=== PATIENT | male | born 1980 | race Two or more races ===

== ENCOUNTER 2018-05-22 03:16 | Emergency (ER) | payer OTHER ==
[~2018-05-22] VITALS: Wt 74.8 kg
[2018-05-22] MEDS ORDERED: NITROGLYCERIN 2% 1 GM OINT PKT TD STA (03:32)
[2018-05-22 06:44] VITALS: BP 184/141; PULSE 118; RESP 22
[2018-05-24] MEDS ORDERED: CARV6.2579 PO (06:59)
[2018-05-24] MEDS ORDERED: SEVE0.8P PO (06:59)
[2018-05-24] MEDS ORDERED: LOSA25TA12 PO (06:59)
[2018-05-24] MEDS ORDERED: AMLO5TAB4 PO (07:00)
--- NOTE | 2018-06-17 23:17 | ERD ---
ER Documentation Chief Complaint Chief Complaint SOB, DIALYSIS PT; DUE FOR TREATMENT TODAY HPI This is a 38-year-old male with end-stage renal disease on dialysis comes in with sudden onset shortness of breath. He is due for dialysis today. No fevers no chills. No other current complaints. No chest pain. Shortness breath is obviously worse when he lays down and tries to exert himself. ROS All systems reviewed and are negative except as per history of present illness. Medications Home Meds Reported Medications Amlodipine Besylate* (Norvasc*) 5 Mg Tablet, 5 MG PO DAILY, TAB 05/24/18 Losartan Potassium* (Losartan Potassium*) 25 Mg Tablet, 75 MG PO DAILY, TAB 05/24/18 Carvedilol* (Carvedilol*) 6.25 Mg Tablet, 6.25 MG PO BID, #60 TAB 05/24/18 Sevelamer Carbonate* (Renvela*) 0.8 Gm Powd.pack, 1.6 GM PO WITH MEALS, PACKET 05/24/18 Allergies Allergies: Coded Allergies: No Known Allergy (Unverified , 05/24/18) PMhx/Soc History of Surgery: No Anesthesia Reaction: No Hx Neurological Disorder: No Hx Respiratory Disorders: No Hx Cardiac Disorders: Yes (HTN) Hx Psychiatric Problems: No Hx Miscellaneous Medical Probl: Yes (HD TThSa,Left chest [place] cath) Hx Alcohol Use: No Hx Substance Use: No Hx Tobacco Use: Yes (daily) Smoking Status: Current every day smoker Physical Exam Physical Exam Const: No acute distress Head: Atraumatic Eyes: Normal Conjunctiva ENT: Normal External Ears, Nose and Mouth. Neck: Full range of motion. No meningismus. Resp: Clear to auscultation bilaterally Cardio: Regular rate and rhythm, no murmurs Abd: Soft, non tender, non distended. Normal bowel sounds Skin: No petechiae or rashes Back: No midline or flank tenderness Ext: No cyanosis, or edema Neur: Awake and alert Psych: Normal Mood and Affect Results 24 hrs Laboratory Tests Test 05/22/18 03:32 05/22/18 03:39 05/22/18 03:53 Blood Gas Specimen Source Blood arterial Arterial Blood Date 05/22/2018 4:38:44 AM Drawn Arterial Blood pH 7.398 (Temp corrected) Arterial Blood pCO2 35.0 mmhg (Temp correct) Arterial Blood pO2 105.3 mmHG (Temp corrected) Arterial Blood HCO3 21.1 mmol/L Arterial Blood Base -3.2 mmol/L Excess Arterial Blood 97.2 mmHG Oxygen Saturation Richard Test N/A Arterial Blood Gas LB Puncture Site Arterial 1.6 % Blood Carboxyhemoglobin Arterial Blood 0 % Methemoglobin Blood Gas A-a O2 211.8 mmHg Differential Oxyhemoglobin Percent 95.6 % Blood Gas Temperature 37.0 C Blood Gas Respiration 16.0 Rate Blood Gas Actual 29 Respiration Rate Blood Gas Modality MASK - BIPAP FiO2 50.0 % Blood Gas Pressure 10 Support Blood Gas IPAP/EPAP Ratio 15/5 Blood Gas Notified Whom KM Blood Gas Notified Time 05/22/2018 4:48:42 AM White Blood Count 6.3 10^3/ul Red Blood Count 3.45 10^6/ul Hemoglobin 10.5 g/dl Hematocrit 31.3 % Mean Corpuscular Volume 90.7 fl Mean Corpuscular 30.4 pg Hemoglobin Mean Corpuscular 33.5 g/dl Hemoglobin Concent Red Cell Distribution 17.1 % Width Platelet Count 145 10^3/UL Mean Platelet Volume 9.6 fl Immature Granulocytes % 0.200 % Neutrophils % 63.1 % Lymphocytes % 26.4 % Monocytes % 6.0 % Eosinophils % 3.8 % Basophils % 0.5 % Nucleated Red Blood Cells 0.0 /100WBC % Immature Granulocytes # 0.010 10^3/ul Neutrophils # 4.0 10^3/ul Lymphocytes # 1.7 10^3/ul Monocytes # 0.4 10^3/ul Eosinophils # 0.2 10^3/ul Basophils # 0.0 10^3/ul Nucleated Red Blood Cells 0.0 10^3/ul # Prothrombin Time 12.5 Sec Prothrombin Time Ratio 1.0 INR International 0.93 Normalized Ratio Activated 28.6 Sec Partial Thromboplast Time Sodium Level 139 mmol/L Potassium Level 4.2 mmol/L Chloride Level 100 mmol/L Carbon Dioxide Level 23 mmol/L Anion Gap 16 Blood Urea Nitrogen 50 mg/dl Creatinine 11.42 mg/dl Est Glomerular Filtrat 5 mL/min Rate mL/min Glucose Level 101 mg/dl Calcium Level 9.3 mg/dl Total Bilirubin 0.4 mg/dl Direct Bilirubin 0.00 mg/dl Indirect Bilirubin 0.4 mg/dl Aspartate Amino 29 IU/L Transf (AST/SGOT) Alanine 31 IU/L Aminotransferase (ALT/SGP T) Alkaline Phosphatase 100 IU/L Troponin I 0.091 ng/ml B-Type Natriuretic 099828 PG/ML Peptide Total Protein 6.9 g/dl Albumin 4.2 g/dl Globulin 2.70 g/dl Albumin/Globulin Ratio 1.55 POC Venous Lactate 1.2 mmol/L Current Medications Medications Dose Sig/Anirudh Start Time Status Last (Trade) Ordered Route PRN Stop Time Admin Dose Reason Admin 1 inch ONCE STAT 05/22/18 DC 05/22/18 Nitroglycerin TD 03:32 04:22 05/22/18 (Nitroglyceri 03:35 n 2% Oint) Procedures/MDM EKG: Rate/Rhythm: [Normal Sinus Rhythm] QRS, ST, T-waves: [No changes consistent w/ acute ischemia] Impression: [No evidence of ischemia or arrhythmia] Chest X-ray 1V Interpreted by me: Soft Tissue: No acute abnormalities Bones: No acute abnormalities Mediastinum/Cardiac Silhouette/Lungs: Increased interstitial fluid markings. Impression: Pulmonary edema Patient's heart failure symptoms is concerning for acute decompensation and will require inpatient workup and monitoring. Further w/u for ischemia, arrhythmia, PE or dissection will be deferred to the inpatient team. Accepting Care Team: Current data and ongoing care discussed. Primary Provider: Hospitalist Consulting: Deferred to inpatient team Outstanding Data: none Departure Diagnosis: Primary Impression: Shortness of breath Condition: Serious DENVER BARRIGA TylerGlenn Jun 17, 2018 23:17
[2018-07-14] MEDS ORDERED: SEVE0.8P2 PO (07:40)
[2018-07-14] MEDS ORDERED: CARV12.579 PO (07:40)
[2018-07-14] MEDS ORDERED: LOSA25TA2 PO (07:40)
== END 2018-05-22 10:39 | disposition left against medical advice (07) ==
LOC: E/R 03:16 → EDBEDREQ 06:28 → E/R 10:39
DX: R06.02 Shortness of breath (principal); I10 Essential (primary) hypertension; F17.210 Nicotine dependence, cigarettes, uncomplicated
CPT/HCPCS: 36600; 71045; 80053; 82803; 83605; 83880; 84484; 85025; 85610; 85730; 93005; 94660; Z7610; 36415

== ENCOUNTER 2018-05-24 04:32 | Emergency (ER) | END 2018-05-24 07:46 | disposition left against medical advice (07) ==

== ENCOUNTER 2018-07-23 17:58 | Inpatient (IN) | payer OTHER ==
[~2018-07-23] VITALS: Ht 170.2 cm; Wt 75.3 kg
[~2018-07-23 17:58] MED LIST: CARV12.579 PO; LOSA25TA2 PO; SEVE0.8P2 PO
--- NOTE | 2018-07-23 19:49 | ERD ---
ER Documentation Chief Complaint Chief Complaint Complains of shortness of breath x 3 month HPI 38-year-old gentleman history of dialysis on Monday and Monday with last dialysis on Monday. The patient presents with shortness of breath. Progressive for 3 months timeframe. Last hospitalization was the beginning of this month approximately 9 days ago discharge. He states persistence of pain. He still has the shortness of breath despite dialysis. He denies any chest pain, chest pressure, pleuritic pain, fevers chills or cough. ROS All systems reviewed and are negative except as per history of present illness. Medications Home Meds Active Scripts Sevelamer Carbonate (Sevelamer Carbonate) 0.8 Gm Powd.pack, 0.8 GM PO WITH MEALS for 90 Days Prov:REASASKIA FRENCH DO 07/14/18 Losartan Potassium* (Cozaar*) 25 Mg Tablet, 100 MG PO BID for 30 Days, TAB Prov:REASASKIA DO 07/14/18 Carvedilol* (Carvedilol*) 12.5 Mg Tablet, 12.5 MG PO BID for 30 Days, TAB Prov:REA,SASKIA DO 07/14/18 Allergies Allergies: Coded Allergies: No Known Allergy (Unverified , 05/24/18) PMhx/Soc History of Surgery: Yes (RIGHT CHEST PERMACATH) Anesthesia Reaction: No Hx Neurological Disorder: No Hx Respiratory Disorders: No Hx Cardiac Disorders: No (HTN) Hx Psychiatric Problems: No Hx Miscellaneous Medical Probl: No Hx Alcohol Use: No Hx Substance Use: No Hx Tobacco Use: No FmHx Family History: No diabetes Physical Exam Vitals Vital Signs Date Temp Pulse Resp B/P (MAP) Pulse Ox O2 O2 Flow FiO2 Time Delivery Rate 07/23/18 97.2 108 20 166/120 100 Nasal 2.0 19:45 (135) Cannula 07/23/18 Nasal 2.0 19:45 Cannula 07/23/18 2 19:45 07/23/18 96.5 114 20 183/112 98 18:02 (135) Physical Exam General: Well developed, well nourished, no acute distress Head: Normocephalic, atraumatic. Eyes: Pupils equally reactive, EOM intact ENT: Moist mucous membranes Neck: Supple, no lymphadenopathy Respiratory: Rales at the bases bilaterally Cardiovascular: RRR, no murmurs, rubs, or gallops Abdominal: Soft, non-tender, non-distended, no peritoneal signs : Deferred MSK: No edema, no unilateral swelling, 5/5 strength Neurologic: Alert and oriented, moving all extremities, normal speech, no focal weakness, no cerebellar signs Skin: No rash Psych: Normal mood Result Diagram: 07/23/18195207/23/181952 Results 24 hrs Laboratory Tests Test 07/23/18 19:53 White Blood Count 5.9 10^3/ul Red Blood Count 2.86 10^6/ul Hemoglobin 8.9 g/dl Hematocrit 27.8 % Mean Corpuscular Volume 97.2 fl Mean Corpuscular Hemoglobin 31.1 pg Mean Corpuscular Hemoglobin Concent 32.0 g/dl Red Cell Distribution Width 14.3 % Platelet Count 179 10^3/UL Mean Platelet Volume 10.4 fl Immature Granulocytes % 0.500 % Neutrophils % 72.9 % Lymphocytes % 20.7 % Monocytes % 3.6 % Eosinophils % 2.0 % Basophils % 0.3 % Nucleated Red Blood Cells % 0.0 /100WBC Immature Granulocytes # 0.030 10^3/ul Neutrophils # 4.3 10^3/ul Lymphocytes # 1.2 10^3/ul Monocytes # 0.2 10^3/ul Eosinophils # 0.1 10^3/ul Basophils # 0.0 10^3/ul Nucleated Red Blood Cells # 0.0 10^3/ul Prothrombin Time 13.4 Sec Prothrombin Time Ratio 1.0 INR International Normalized Ratio 1.01 Activated Partial Thromboplast Time 28.6 Sec Sodium Level 139 mmol/L Potassium Level 4.1 mmol/L Chloride Level 95 mmol/L Carbon Dioxide Level 25 mmol/L Anion Gap 19 Blood Urea Nitrogen 68 mg/dl Creatinine 10.81 mg/dl Est Glomerular Filtrat Rate mL/min 5 mL/min Glucose Level 99 mg/dl Calcium Level 9.4 mg/dl Troponin I 0.127 ng/ml Current Medications Medications Dose Sig/Anirudh Start Time Status Last (Trade) Ordered Route PRN Stop Time Admin Dose Reason Admin 1 tab ONCE ONCE 07/23/18 DC 07/23/18 Nitroglycerin SL 20:30 20:25 07/23/18 20:31 (Nitroglyceri n (Sl Tab) 0.4 Mg) Ondansetron 4 mg BRIDGE ORDER 07/23/18 HCl (Zofran PRN IV 21:00 Inj) NAUSEA/VOMITI 07/24/18 20:59 NG 650 mg ER BRIDGE 07/23/18 Acetaminophen PRN PO 21:00 (Tylenol .MILD PAIN 07/24/18 20:59 Tab) 1-3 OR TEMP Aspirin 324 mg ONCE ONCE 07/23/18 DC 07/23/18 (Aspirin) PO 21:00 20:50 07/23/18 21:01 Procedures/MDM EKG, MONITORS, & DIAGNOSTIC IMAGING: EKG: I reviewed and interpreted a 12-lead EKG. Rhythm: Normal sinus rhythm ST Changes: No contiguous ST segment elevations T waves: No contiguous T wave inversions Impression: [No evidence of acute cardiac ischemia] Chest x-ray: I reviewed and interpreted a 1 view of the chest Mediastinum: No enlargement Cardiac silhouette cardiomegaly Airspace: Interstitial process bilaterally consistent with pulmonary edema Bones: No evidence of fracture LAB INTERPRETATION: I reviewed the laboratory testing and it shows mild troponin elevation likely secondary to poor renal clearance MEDICAL DECISION MAKING: Patient shortness of breath is likely consistent with volume overload given history and prior hospitalization for similar. No signs or symptoms concerning for ACS or pulmonary embolism. No evidence of pneumonia currently. Currently the patient is breathing without difficulty and does not require positive pressure ventilation. Continue to monitor. Patient may benefit from blood pressure control. Dr. Hunter, patient's photo booth operator will be paged. ER COURSE: * Aspirin provided. * Blood pressure improved with nitroglycerin. * However just prior to admission the patient's blood pressure increased slightly. Hydralazine provided. No chest pain currently. * Low concern for pulmonary embolism. CONSULTATION: [None] DISPOSITION PLAN: Accepting care team and consultations: I discussed the current laboratory data, diagnostic imaging and emergency care provided. Admitting team: Dr. Mayfield Admitting team indication: Insurance directed Departure Diagnosis: Primary Impression: Shortness of breath Additional Impressions: Non-ST elevation myocardial infarction (NSTEMI) End stage renal disease on dialysis Hypertensive emergency Condition: Stable DON RIVERA MD Jul 23, 2018 19:49
[2018-07-23] MEDS ORDERED: NITROGLYCERIN (SL) 0.4 MG TAB SL ONE (20:30)
[2018-07-23] MEDS ORDERED: ACETAMINOPHEN 325 MG TAB PO PRN ×2 (21:00→22:00)
[2018-07-23] MEDS ORDERED: ONDANSETRON 4 MG INJ IV PRN ×2 (21:00→22:00)
[2018-07-23] MEDS ORDERED: ASPIRIN 81 MG TAB PO ONE (21:00)
[2018-07-23] MEDS ORDERED: hydrALAzine 20 MG INJ ONE (21:37)
[2018-07-23] MEDS ORDERED: ZOLPIDEM 5 MG TAB PO PRN (22:00)
[2018-07-23] MEDS ORDERED: NACL 0.9% 3 ML SYG IV SCH (22:00)
[2018-07-23] MEDS ORDERED: hydrALAzine 20 MG INJ IV ONE (22:00)
[2018-07-23 22:14] VITALS: Ht 170.2 cm; Wt 75.3 kg
[2018-07-23 22:27] VITALS: PULSE 104
[2018-07-23 22:30] VITALS: BP 174/92; PULSE 107; RESP 20
[2018-07-23] MEDS ORDERED: GUAIFENESIN/DM 5ML CUP PO PRN (23:00)
[2018-07-23] MEDS: HEPARIN 5,000 UNIT/1 ML VIAL SC SCH (23:03)
[2018-07-23] MEDS: NITROGLYCERIN 2% 1 GM OINT PKT TD SCH (23:15)
[2018-07-24] VITALS (24 sets, daily range): BP systolic 131–164; BP diastolic 11–121; PULSE 81–112; RESP 18–24
[2018-07-24] MEDS: NITROGLYCERIN 2% 1 GM OINT PKT TD SCH ×4 (05:32→23:13)
[2018-07-24] MEDS: HEPARIN 5,000 UNIT/1 ML VIAL SC SCH ×3 (05:39→21:52)
[2018-07-24] MEDS: SEVELAMER CARBONATE 0.8 GM PKT PO SCH ×3 (08:18→17:55)
--- NOTE | 2018-07-24 08:21 | HP ---
DATE OF ADMISSION: 07/23/2018 HOSPITAL COURSE: This is a 38-year-old male with a past medical history of end-stage renal disease o n dialysis Monday, , Monday, access Perm-A-Cath. The patient's primary automobile rental agent is Dr Glenn Hunter. The patient also has history of hypertension, mineral bone disorder, anemia, who w as previously admitted to [facility] 2 weeks ago. The patient during that hospital course was seen by porcelain buildup assistant, Dr. Taylor, was determined to have heart failure with ejection frac tion of 25%. The patient at that point refused cardiac catheterization. The patient was subsequentl y discharged. He now presents back to the [facility] with shortness of breath. patient states he has also had progressive shortness of breath for the last 3 months despite hemodi alysis. Upon arrival to the emergency room, the patient had a chest x-ray, which showed findings of cardiomegaly with central venous congestion. The patient was noted to be hypertensive in the emergen cy room and was admitted to telemetry, given nitroglycerin paste for blood pressure control. Upon my evaluation of the patient at this time, he is currently tachypneic. He denies any hemoptysis , hematemesis, or hematochezia. PAST MEDICAL HISTORY: As stated above, history of hypertension, history of end-stage renal disease, history of mineral bone disorder, history of heart failure. PAST SURGICAL HISTORY: Status post Perm-A-Cath placement, status post renal biopsy per patient in [facility]. FAMILY HISTORY: Noncontributory. SOCIAL HISTORY: He does not drink, smoke, or do drugs. MEDICATIONS: The patient's medications have been reviewed. REVIEW OF SYSTEMS: A 14-point review of systems was conducted. Pertinent positives stated in HPI, o therwise negative. PHYSICAL EXAMINATION: VITAL SIGNS: Blood pressure is 159/108, pulse 109, temperature 97.6. HEENT: Head is normocephalic. NECK: Supple. HEART: Regular rate. LUNGS: Show diminished breath sounds at the base. ABDOMEN: Soft, nontender to palpation without rebound or guarding. EXTREMITIES: Negative for clubbing, cyanosis, no edema. DERMATOLOGIC: No rashes. MUSCULOSKELETAL: No joint effusion. NEUROLOGIC: No change in exam. LABORATORY DATA: Shows white count 5.1, hemoglobin 8.3, platelets count 162. Sodium 139, BUN 72, cr eatinine 1.18. Troponin 0.127. ASSESSMENT AND PLAN: 1. End-stage renal disease. Plan is for dialysis today. We will dialyze for 3 hours on 3K bath, ca lcium 2.5, ultrafiltrate approximately 2 to 3 liters. 2. Acute hypoxemic respiratory failure. Etiology is felt to be secondary to volume overload. Possi ble cardiomyopathy may be a contributing factor. The patient's previous 2D echo showed ejection frac tion of 25%. Plan is to ultrafiltrate with hemodialysis to obtain euvolemia. We will follow up with cardiology for further evaluation and possible cardiac catheterization to rule out ischemic disease. We will monitor closely. 3. Heart failure. The patient has ejection fraction of 25%. Workup is ongoing. We will place a ca rdiology consult for evaluation. 4. Anemia. Continue to monitor hemoglobin and hematocrit levels. Continue Epogen. 5. Mineral bone disorder, monitor calcium and phosphorus levels. 6. Hypertension. Continue current blood pressure regimen. Continue ultrafiltration dialysis. 7. Elevated troponin. Etiology may be due to demand ischemia versus ischemic cardiomyopathy. We wi ll continue to monitor serial troponins. Follow up with cardiology. 8. Gastrointestinal and deep vein thrombosis prophylaxis. I spent additional 30 minutes in [id number] time with the patient, discussing advance directives, c ode status. The patient is FULL CODE. Dictated By: DMITRY KELLER DO NR/NTS Conf#: [id number] DID#: [id number] CC: DAVE MEDRANO MD;*EndCC*
[2018-07-24] MEDS ORDERED: EPOETIN 10000 UNITS/1 ML INJ (ESRD) SC ONE (09:00)
--- NOTE | 2018-07-24 10:23 | CONS ---
Assessment/Plan Assessment/Plan Hospital Course (Demo Recall) Congestive heart failure: Acute on chronic secondary systolic heart failure and also noncompliant with the diet and medication Renal failure on dialysis Severe cardiomyopathy Abnormal troponin with no chest pain History of poor compliance with medications Recommendations Importance of compliant with medication diet and hemodialysis explained to the patient. However he does not appear to be agreeing to it Different options discussed with the patient. It was decided to perform a Lexiscan stress test tomorrow. Patient with significant ischemia were discussed with the patient for coronary angiography as long as he remains compliant with her medications Coreg has been added to his regimen I would also add VIVIANA inhibitor as well. Thank you for his referral will continue to follow along with you DENILSON SCOTT MD [facility] Consultation Date/Type/Reason Admit Date/Time Jul 23, 2018 at 20:32 Date of Consultation: Jul 24, 2018 Type of Consult Cardiology Reason for Consultation chf/ Requesting Provider: DMITRY KELLER DO Date/Time of Note DATE: 07/24/18 TIME: 10:18 Hx of Present Illness Interventional cardiology consultation note Chief complaint: sob Reason for consult: + trop, CHF History of present illness: Thank you for this referral. History was obtained from the patient who is a poor historian discussion with the staff and physicians. Old chart was reviewed This is a 38-year-old Malay gentleman with history of renal failure on dialysis over the past few months, hypertension who came to emergency room above complaint. Patient stated that he had hemodialysis on Monday. After that he has been having increasing shortness of breath again and finally came to emerg ency room last night. Patient reports to me that he "eats whatever he wants to"and he does not take his medication regularly because " they do not work" . Patient on record was reviewed he was admitted recently to the hospital. He came in and was noted to be fluid overloaded and a chest x-ray. After he had missed his hemodialysis and came in with fluid overload Patient is unaware of any cardiac disorder onset in February he had an echocardiogram all review and he reports that he was told it was okay. However echocardiogram done last admission and personally reviewed which shows severe LV dysfunction and dilated left ventricle. His troponin was also mildly elevated Patient refused coronary angiography at that time Allergies: No known drug allergies Medications were reviewed as per medical reconciliation sheet Family history: Denies any history of early coronary artery disease Social history: Actively smokes but denies any drug abuse to me. Apparently has been a heavy drinker but he said that he has quit in January 2018 Past medical history: Hypertension, renal failure on dialysis cardiomyopathy congestive heart failure Review of system: Patient denies all others except for above-mentioned Past Medical History Home Meds Active Scripts Sevelamer Carbonate (Sevelamer Carbonate) 0.8 Gm Powd.pack, 0.8 GM PO WITH MEALS for 90 Days Prov:SASKIA LUCIA DO 07/14/18 Carvedilol* (Carvedilol*) 12.5 Mg Tablet, 12.5 MG PO BID for 30 Days, TAB Prov:SASKIA LUCIA DO 07/14/18 Discontinued Scripts Losartan Potassium* (Cozaar*) 25 Mg Tablet, 100 MG PO BID for 30 Days, TAB Prov:SASKIA LUCIA DO 07/14/18 Medications Current Medications IV Flush (NS 3 ml) 3 ml PER PROTOCOL IV ; Start 07/23/18 at 22:00 Ondansetron HCl (Zofran Inj) 4 mg Q6H PRN IV NAUSEA/VOMITING; Start 07/23/18 at 22:00 Acetaminophen (Tylenol Tab) 650 mg Q6H PRN PO .PAIN 1-3 OR TEMP; Start 07/23/18 at 22:00 Zolpidem Tartrate (Ambien) 5 mg QHS PRN PO .INSOMNIA; Start 07/23/18 at 22:00 Heparin Sodium (Porcine) (Heparin (5000 Units/1ml)) 5,000 unit Q8 SC Last administered on 07/24/18at 05:39; Admin Dose 5,000 UNIT; Start 07/23/18 at 22:00 Nitroglycerin (Nitroglycerin 2% Oint) 2 inch Q6 TD Last administered on 07/24/18at 05:32; Admin Dose 2 INCH; Start 07/24/18 at 00:00 Guaifenesin/ Dextromethorphan (Robitussin Dm Liquid Cup) 10 ml Q4H PRN PO COUGH; Start 07/23/18 at 23:00 Carvedilol (Coreg) 12.5 mg BID PO Last administered on 07/24/18at 08:18; Admin Dose 12.5 MG; Start 07/24/18 at 09:00 Sevelamer Carbonate (Renvela) 0.8 gm WITH MEALS PO Last administered on 07/24/18at 08:18; Admin Dose 0.8 GM; Start 07/24/18 at 07:55 Allergies: Coded Allergies: No Known Allergy (Unverified , 05/24/18) Social History Smoking Status: Former smoker Exam/Review of Systems Vital Signs Vitals Vital Signs Date Temp Pulse Resp B/P (MAP) Pulse Ox O2 O2 Flow FiO2 Time Delivery Rate 07/24/18 105 09:00 07/24/18 Nasal 2.0 07:55 Cannula 07/24/18 97.7 18 163/104 98 07:39 (123) Intake and Output 07/23/18 07/23/18 07/24/18 1515:00 23:00 07:00 IntakeIntake Total 300 ml BalanceBalance 300 ml Exam Exam General: no acute distress HEENT: NC/AT. pupils are equal. round. NECK: + JVD. no stridor. CV: RRR. systolic murmur; no gallop or rubs. PULM: no wheezing or rhonchi. GI: SOFT, NT, ND, no rebound or guarding Extremity: trace B/L LE edema. no clubbing. neuro: awake and alert, OX3. Psych: calm and pleasant rectal: deferred : normal Labs Result Diagram: 07/24/18 0242 07/24/18 0242 Results 24hrs Laboratory Tests Test 07/23/18 19:53 07/24/18 02:42 07/24/18 06:25 07/24/18 07:51 White Blood Count 5.9 # 5.1 Red Blood Count 2.86 L 2.68 L Hemoglobin 8.9 L 8.3 L Hematocrit 27.8 L 25.6 L Mean Corpuscular 97.2 95.5 Volume Mean Corpuscular 31.1 31.0 Hemoglobin Mean Corpuscular 32.0 32.4 Hemoglobin Concent Red Cell 14.3 14.6 H Distribution Width Platelet Count 179 # 162 Mean Platelet Volume 10.4 10.5 H Immature 0.500 H 0.400 Granulocytes % Neutrophils % 72.9 77.5 H Lymphocytes % 20.7 16.0 Monocytes % 3.6 4.5 Eosinophils % 2.0 1.2 Basophils % 0.3 0.4 Nucleated Red Blood 0.0 0.0 Cells % Immature 0.030 0.020 Granulocytes # Neutrophils # 4.3 4.0 Lymphocytes # 1.2 0.8 Monocytes # 0.2 L 0.2 L Eosinophils # 0.1 0.1 Basophils # 0.0 0.0 Nucleated Red Blood 0.0 0.0 Cells # Prothrombin Time 13.4 Prothrombin Time 1.0 Ratio INR International 1.01 Normalized Ratio Activated 28.6 Partial Thromboplast Time Sodium Level 139 139 Potassium Level 4.1 4.2 Chloride Level 95 L 102 Carbon Dioxide Level 25 23 Anion Gap 19 H 14 H Blood Urea Nitrogen 68 H 73 H Creatinine 10.81 H 11.18 H Est Glomerular 5 L 5 L Filtrat Rate mL/min Glucose Level 99 102 Calcium Level 9.4 9.3 Troponin I 0.127 *H 0.100 0.104 Hemoglobin A1c 5.0 Phosphorus Level 5.9 H Magnesium Level 2.5 Total Bilirubin 0.4 Direct Bilirubin 0.00 Indirect Bilirubin 0.4 Aspartate Amino 24 Transf (AST/SGOT) Alanine 36 Aminotransferase (AL T/SGPT) Alkaline Phosphatase 83 Creatine Kinase 163 Creatine Kinase 2.6 Index Creatinine Kinase MB 4.17 H (Mass) Total Protein 6.0 L Albumin 3.5 Globulin 2.50 Albumin/Globulin 1.40 Ratio Thyroid Stimulating 1.520 Hormone (TSH) Hepatitis B Surface NEGATIVE Antigen Bedside Glucose 105 Medications Medications Current Medications IV Flush (NS 3 ml) 3 ml PER PROTOCOL IV ; Start 07/23/18 at 22:00 Ondansetron HCl (Zofran Inj) 4 mg Q6H PRN IV NAUSEA/VOMITING; Start 07/23/18 at 22:00 Acetaminophen (Tylenol Tab) 650 mg Q6H PRN PO .PAIN 1-3 OR TEMP; Start 07/23/18 at 22:00 Zolpidem Tartrate (Ambien) 5 mg QHS PRN PO .INSOMNIA; Start 07/23/18 at 22:00 Heparin Sodium (Porcine) (Heparin (5000 Units/1ml)) 5,000 unit Q8 SC Last administered on 07/24/18at 05:39; Admin Dose 5,000 UNIT; Start 07/23/18 at 22:00 Nitroglycerin (Nitroglycerin 2% Oint) 2 inch Q6 TD Last administered on 07/24/18at 05:32; Admin Dose 2 INCH; Start 07/24/18 at 00:00 Guaifenesin/ Dextromethorphan (Robitussin Dm Liquid Cup) 10 ml Q4H PRN PO COUGH; Start 07/23/18 at 23:00 Carvedilol (Coreg) 12.5 mg BID PO Last administered on 07/24/18at 08:18; Admin Dose 12.5 MG; Start 07/24/18 at 09:00 Sevelamer Carbonate (Renvela) 0.8 gm WITH MEALS PO Last administered on 07/24/18at 08:18; Admin Dose 0.8 GM; Start 07/24/18 at 07:55 DENILSON SCOTT MD Jul 24, 2018 10:23
[2018-07-24] MEDS: LISINOPRIL 5 MG TAB PO SCH (11:19)
[2018-07-24] MEDS ORDERED: ALTEPLASE (CATHFLO) 2 MG INJ CATHETER ONE (15:00)
[2018-07-25] VITALS (17 sets, daily range): BP systolic 126–156; BP diastolic 88–118; PULSE 67–108; RESP 16–20
[2018-07-25] MEDS: NITROGLYCERIN 2% 1 GM OINT PKT TD SCH ×3 (05:52→17:40)
[2018-07-25] MEDS: HEPARIN 5,000 UNIT/1 ML VIAL SC SCH ×3 (06:07→21:04)
[2018-07-25] MEDS: SEVELAMER CARBONATE 0.8 GM PKT PO SCH ×3 (07:55→17:39)
[2018-07-25] MEDS ORDERED: REGADENOSON 0.4 MG/5 ML SYG ONE (08:14)
--- NOTE | 2018-07-25 08:25 | CONS ---
Consult Date/Type/Reason Admit Date/Time Jul 23, 2018 at 20:32 Initial Consult Date 07/24/18 Type of Consultation: CV Requesting Provider: DMITRY KELLER DO Date/Time of Note DATE: 07/25/18 TIME: 08:23 Subjective Cardiology follow-up progress note Subjective: Case discussed with staff rhythm was reviewed patient remains sinus rhythm Patient denies any chest pain or pressure to me and His breathing has significantly improved as well after hemodialysis Objective: General: no acute distress HEENT: NC/AT. pupils are equal. round. NECK: + JVD. no stridor. CV: RRR. systolic murmur; no gallop or rubs. PULM: no wheezing or rhonchi. GI: SOFT, NT, ND, no rebound or guarding Extremity: trace B/L LE edema. no clubbing. neuro: awake and alert, OX3. Psych: calm and pleasant rectal: deferred : normal Objective Vitals Vital Signs Date Temp Pulse Resp B/P (MAP) Pulse Ox O2 O2 Flow FiO2 Time Delivery Rate 07/25/18 Nasal 2.0 07:40 Cannula 07/25/18 98.6 67 20 126/89 96 07:12 (101) Intake and Output 07/24/18 07/24/18 07/25/18 1515:00 23:00 07:00 IntakeIntake Total 900 ml 500 ml OutputOutput Total 200 ml 4000 ml BalanceBalance -200 ml -3100 ml 500 ml Results/Medications Result Diagram: 07/25/18 0541 07/25/18 0541 Results 24 hrs Laboratory Tests Test 07/24/18 11:22 07/25/18 05:41 Creatine Kinase 174 Creatine Kinase Index 2.1 Creatinine Kinase MB (Mass) 3.62 H Troponin I 0.104 White Blood Count 4.3 L Red Blood Count 2.59 L Hemoglobin 8.1 L Hematocrit 24.7 L Mean Corpuscular Volume 95.4 Mean Corpuscular Hemoglobin 31.3 Mean Corpuscular Hemoglobin Concent 32.8 Red Cell Distribution Width 14.5 Platelet Count 135 L Mean Platelet Volume 10.0 Immature Granulocytes % 0.200 Neutrophils % 70.2 Lymphocytes % 19.2 Monocytes % 7.3 Eosinophils % 2.6 Basophils % 0.5 Nucleated Red Blood Cells % 0.0 Immature Granulocytes # 0.010 Neutrophils # 3.0 Lymphocytes # 0.8 Monocytes # 0.3 Eosinophils # 0.1 Basophils # 0.0 Nucleated Red Blood Cells # 0.0 Sodium Level 139 Potassium Level 3.8 Chloride Level 94 L Carbon Dioxide Level 27 Anion Gap 18 H Blood Urea Nitrogen 58 H Creatinine 9.66 H Est Glomerular Filtrat Rate mL/min 6 L Glucose Level 91 Calcium Level 8.8 Phosphorus Level 6.0 H Magnesium Level 2.2 Home Meds Active Scripts Sevelamer Carbonate (Sevelamer Carbonate) 0.8 Gm Powd.pack, 0.8 GM PO WITH MEALS for 90 Days Prov:SASKIA LUCIA DO 07/14/18 Carvedilol* (Carvedilol*) 12.5 Mg Tablet, 12.5 MG PO BID for 30 Days, TAB Prov:SASKIA LUCIA DO 07/14/18 Discontinued Scripts Losartan Potassium* (Cozaar*) 25 Mg Tablet, 100 MG PO BID for 30 Days, TAB Prov:SASKIA LUCIA DO 07/14/18 Medications Current Medications IV Flush (NS 3 ml) 3 ml PER PROTOCOL IV ; Start 07/23/18 at 22:00 Ondansetron HCl (Zofran Inj) 4 mg Q6H PRN IV NAUSEA/VOMITING; Start 07/23/18 at 22:00 Acetaminophen (Tylenol Tab) 650 mg Q6H PRN PO .PAIN 1-3 OR TEMP; Start 07/23/18 at 22:00 Zolpidem Tartrate (Ambien) 5 mg QHS PRN PO .INSOMNIA; Start 07/23/18 at 22:00 Heparin Sodium (Porcine) (Heparin (5000 Units/1ml)) 5,000 unit Q8 SC Last administered on 07/25/18at 06:07; Admin Dose 5,000 UNIT; Start 07/23/18 at 22:00 Nitroglycerin (Nitroglycerin 2% Oint) 2 inch Q6 TD Last administered on 07/25/18at 05:52; Admin Dose 2 INCH; Start 07/24/18 at 00:00 Guaifenesin/ Dextromethorphan (Robitussin Dm Liquid Cup) 10 ml Q4H PRN PO COUGH; Start 07/23/18 at 23:00 Carvedilol (Coreg) 12.5 mg BID PO Last administered on 07/24/18at 21:21; Admin Dose 12.5 MG; Start 07/24/18 at 09:00 Sevelamer Carbonate (Renvela) 0.8 gm WITH MEALS PO Last administered on 07/24/18at 08:18; Admin Dose 0.8 GM; Start 07/24/18 at 07:55 Lisinopril (Zestril) 5 mg DAILY PO Last administered on 07/24/18at 11:19; Admin Dose 5 MG; Start 07/24/18 at 10:30 Assessment/Plan Hospital Course (Demo Recall) Congestive heart failure: Acute on chronic secondary systolic heart failure and also noncompliant with the diet and medication Renal failure on dialysis Severe cardiomyopathy Abnormal troponin with no chest pain History of poor compliance with medications Recommendations Importance of compliant with medication diet and hemodialysis explained to the patient. Lexiscan stress of will be done toda Continue with the Coreg and VIVIANA inhibitor. Increase as tolerated will start asa Thank you for his referral will continue to follow along with you DENILSON SCOTT MD [facility] DENILSON SCOTT MD Jul 25, 2018 08:25
[2018-07-25] MEDS: LISINOPRIL 5 MG TAB PO SCH (09:00)
[2018-07-25] MEDS: ASPIRIN (EC) 81 MG TAB PO SCH (09:00)
--- NOTE | 2018-07-25 09:10 | PN ---
DATE: 07/25/2018 SUBJECTIVE: The patient is stable. The patient is pending a stress test today. The patient continu es to have shortness of breath. No other events noted. OBJECTIVE: VITAL SIGNS: Blood pressure is 126/89, pulse 67, respirations 20, temperature is 98.6. HEENT: Head is normocephalic. NECK: Supple. HEART: Regular rate. LUNGS: Show diminished breath sounds at the base. ABDOMEN: Soft, nontender to palpation without rebound or guarding. EXTREMITIES: Negative for clubbing, cyanosis, no edema. DERMATOLOGIC: No rashes. MUSCULOSKELETAL: No joint effusion. NEUROLOGIC: No change in exam. MEDICATIONS: Reviewed. LABORATORY DATA: From 07/25/2018 showed sodium 139, potassium 2.8, BUN 58, creatinine 9.66. ASSESSMENT AND PLAN: 1. End-stage renal disease. The patient had hemodialysis yesterday, tolerated well. Plan for dialy sis again today for volume removal and solute clearance. 2. Acute hypoxemic respiratory failure. Etiology may be multifactorial secondary to volume overload , possible active cardiac ischemia is a contributing factor. The patient has noted ejection fraction of 25% pending a stress test. Will continue to monitor. Follow up with cardiology. 4. Heart failure. The patient is decompensated. Continue ultrafiltration dialysis. Continue to mo nitor. Follow up with cardiology for workup. 5. Anemia. Monitor hemoglobin and hematocrit levels. Will give Epogen as needed. 6. Mineral bone disorder. Monitor calcium and phosphorus levels. 7. Hypertension. Continue current blood pressure regimen. Continue ultrafiltration dialysis. 8. Elevated troponin. Etiology may be due to demand ischemia versus cardiomyopathy. Continue to mo nitor. 9. GI and DVT prophylaxis. Dictated By: DMITRY KELLER DO NR/NTS Conf#: [id number] DID#: [id number] CC: DAVE MEDRANO MD;*EndCC*
[2018-07-25] MEDS: HEPARIN 1000 UNITS/ML 10 ML INJ CATHETER PRN (16:16)
[2018-07-26] VITALS (19 sets, daily range): BP systolic 104–153; BP diastolic 83–124; PULSE 81–102; RESP 16–20
[2018-07-26] MEDS: NITROGLYCERIN 2% 1 GM OINT PKT TD SCH ×2 (00:16→06:00)
[2018-07-26] MEDS: HEPARIN 5,000 UNIT/1 ML VIAL SC SCH ×2 (06:00→14:00)
[2018-07-26] MEDS ORDERED: EPOETIN 10000 UNITS/1 ML INJ (ESRD) SC ONE ×2 (08:30→20:00)
[2018-07-26] MEDS: ASPIRIN (EC) 81 MG TAB PO SCH (08:40)
[2018-07-26] MEDS: SEVELAMER CARBONATE 800 MG TABLET PO SCH ×3 (08:40→17:55)
--- NOTE | 2018-07-26 08:58 | CONS ---
Consult Date/Type/Reason Admit Date/Time Jul 23, 2018 at 20:32 Initial Consult Date 07/24/18 Type of Consultation: CV Requesting Provider: DMITRY KELLER DO Date/Time of Note DATE: 07/26/18 TIME: 08:53 Subjective Cardiology follow-up progress note Subjective: Case discussed with staff rhythm was reviewed patient remains sinus rhythm Patient denies any chest pain or pressure to me His breathing is okay now Objective: General: no acute distress HEENT: NC/AT. pupils are equal. round. NECK: + JVD. no stridor. CV: RRR. systolic murmur; no gallop or rubs. PULM: no wheezing or rhonchi. GI: SOFT, NT, ND, no rebound or guarding Extremity: trace B/L LE edema. no clubbing. neuro: awake and alert, OX3. Psych: calm and pleasant rectal: deferred : normal lexiscan 07/25/18 1. No evidence of stress-induced ischemia. 2. Moderate hypokinesis of the left ventricle. 3. The left ventricle ejection fraction at stress is 24%. Objective Vitals Vital Signs Date Temp Pulse Resp B/P (MAP) Pulse Ox O2 O2 Flow FiO2 Time Delivery Rate 07/26/18 94 08:23 07/26/18 97.7 20 151/107 98 Room Air 07:22 (122) 07/25/18 2.0 21:00 Intake and Output 07/25/18 07/25/18 07/26/18 1515:00 23:00 07:00 IntakeIntake Total 600 ml 800 ml OutputOutput Total 1300 ml BalanceBalance -700 ml 800 ml Results/Medications Result Diagram: 07/25/18 0541 07/25/18 0541 Home Meds Active Scripts Sevelamer Carbonate (Sevelamer Carbonate) 0.8 Gm Powd.pack, 0.8 GM PO WITH MEALS for 90 Days Prov:SASKIA LUCIA DO 07/14/18 Carvedilol* (Carvedilol*) 12.5 Mg Tablet, 12.5 MG PO BID for 30 Days, TAB Prov:SASKIA LUCIA DO 07/14/18 Discontinued Scripts Losartan Potassium* (Cozaar*) 25 Mg Tablet, 100 MG PO BID for 30 Days, TAB Prov:SASKIA LUCIA DO 07/14/18 Medications Current Medications IV Flush (NS 3 ml) 3 ml PER PROTOCOL IV ; Start 07/23/18 at 22:00 Ondansetron HCl (Zofran Inj) 4 mg Q6H PRN IV NAUSEA/VOMITING; Start 07/23/18 at 22:00 Acetaminophen (Tylenol Tab) 650 mg Q6H PRN PO .PAIN 1-3 OR TEMP; Start 07/23/18 at 22:00 Zolpidem Tartrate (Ambien) 5 mg QHS PRN PO .INSOMNIA; Start 07/23/18 at 22:00 Heparin Sodium (Porcine) (Heparin (5000 Units/1ml)) 5,000 unit Q8 SC Last administered on 07/25/18at 21:04; Admin Dose 5,000 UNIT; Start 07/23/18 at 22:00 Guaifenesin/ Dextromethorphan (Robitussin Dm Liquid Cup) 10 ml Q4H PRN PO COUGH; Start 07/23/18 at 23:00 Aspirin (Halfprin) 81 mg DAILY PO Last administered on 07/26/18at 08:40; Admin Dose 81 MG; Start 07/25/18 at 09:00 Heparin Sodium (Porcine) (Heparin (1000 Units/ml)) 3,500 unit PRN PRN CATHETER After Dialysis Last administered on 07/25/18at 16:16; Admin Dose 3,500 UNIT; Start 07/25/18 at 16:30 Sevelamer Carbonate (Renvela) 800 mg WITH MEALS PO Last administered on 07/26/18 08:40; Admin Dose 800 MG; Start 07/26/18 at 08:30 Carvedilol (Coreg) 25 mg BID PO Last administered on 07/26/18at 08:41; Admin Dose 25 MG; Start 07/26/18 at 09:00 Lisinopril (Zestril) 20 mg DAILY PO Last administered on 07/26/18 08:41; Admin Dose 20 MG; Start 07/26/18 at 09:00 Assessment/Plan Hospital Course (Demo Recall) Congestive heart failure: Acute on chronic secondary systolic heart failure and also noncompliant with the diet and medication Renal failure on dialysis Severe cardiomyopathy Abnormal troponin with no chest pain History of poor compliance with medications Recommendations Importance of compliant with medication diet and hemodialysis explained to the patient. Lexiscan stress test done 07/25/2018 shows no significant reversible ischemia consistent with his severe nonischemic cardiomyopathy Continue with the Coreg and VIVIANA inhibitor. Increase as tolerated Thank you for his referral will continue to follow along with you DENILSON SCOTT MD [facility] DENILSON SCOTT MD Jul 26, 2018 08:58
[2018-07-26] MEDS ORDERED: LISINOPRIL 5 MG TAB PO SCH (09:00)
[2018-07-26] MEDS ORDERED: CARV12.579 PO (09:13)
--- NOTE | 2018-07-26 09:15 | DS ---
DATE OF ADMISSION: 07/23/2018 DATE OF DISCHARGE: 07/26/2018 HOSPITAL COURSE: This is a 38-year-old male with a past medical history of end- stage renal disease on dialysis Monday, , Monday, access Perm-A-Cath. Patient's primary marketing assistant manager is Dr. Hunter. Patient has a history of hypertension, mineral bone disorder, anemia who was admitted to [facility] with shortness of breath. The patient was recently admitted to [facility] with similar complaint. The patient at that time did receive an extra session of dialysis and was subsequently discharged home. He now presents with shortness of breath. The patient was subsequently admitted for evaluation. In terms of the patient's workup, he was seen by aircraft mechanic electrical and radio, Dr. Taylor. The patient previously had ejection fraction 25%. A Lexiscan was performed which showed no evidence of coronary artery disease. The patient is recommended for medical management and to be compliant with his blood pressure medications. In terms of the shortness of breath, the patient received aggressive daily dialysis with clinical improvement. The patient was also further educated and advised to minimize daily oral intake and to increase his dialysis sessions to 4 times weekly. The patient was noted today with mild erythema around catheter site, unclear if this is a dermatitis or cellulitis. The patient refused Iv vancomycin. He will be given keflex and monitored in outpt setting by pcp and primary marketing assistant manager. Currently, at this time, the patient is stable, no acute distress. The patient will be discharged home today following hemodialysis. At the time of discharge, patient is stable, no acute distress. FINAL DIAGNOSES: 1. End-stage renal disease. 2. Systolic heart failure, ejection fraction 25%. 3. Anemia. 4. Mineral bone disorder. 5. Hypertension. 6. Acute respiratory failure secondary to volume overload, improved with aggressive hemodialysis and ultrafiltration. 7. possible cellulitis At time of discharge, the patient is stable, in no acute distress. FINAL MEDICATIONS: The patient will be discharged on: 1. Coreg 25 mg b.i.d. 2. Lisinopril 20 mg daily. 3. Keflex 500 bid The patient will continue his home regimen of sevelamer. Please note, I spent over 30 minutes of time preparing the patient's discharge. Dictated By: DMITRY VU/ZAKIA Conf#: [id number] DID#: [id number] CC: DAVE MEDRANO MD;*EndCC* MTDD
[2018-07-26] MEDS ORDERED: CARV25TA97 PO ×2 (11:26→11:46)
[2018-07-26] MEDS ORDERED: VANCOMYCIN 1 GM (PMX) 250 ML IVPB ONE (18:30)
[2018-07-26] MEDS: HEPARIN 1000 UNITS/ML 10 ML INJ CATHETER PRN (18:57)
[2018-07-26] MEDS ORDERED: CEPHALEXIN 500 MG CAP PO ONE (19:25)
== END 2018-07-26 20:05 | disposition home or self-care (01) | DRG 291 ==
LOC: E/R 17:58 → TEL 20:32 → EDBEDREQSVC 21:06
PROVIDERS: ADMIT Internal Medicine; ATTEND Internal Medicine
PROC: 5A1D70Z Performance of Urinary Filtration, Intermittent, Less than 6 Hours Per Day (ICD-10-PCS; 2018-07-23)
PROC: 5A1D70Z Performance of Urinary Filtration, Intermittent, Less than 6 Hours Per Day (ICD-10-PCS; 2018-07-25)
PROC: 5A1D70Z Performance of Urinary Filtration, Intermittent, Less than 6 Hours Per Day (ICD-10-PCS; principal; 2018-07-26)
DX: I13.2 Hypertensive heart and chronic kidney disease with heart failure and with stage 5 chronic kidney disease, or end stage renal disease (principal); N18.6 End stage renal disease; I50.23 Acute on chronic systolic (congestive) heart failure; J96.01 Acute respiratory failure with hypoxia; T82.7XXA Infection and inflammatory reaction due to other cardiac and vascular devices, implants and grafts, initial encounter; I16.1 Hypertensive emergency; F17.210 Nicotine dependence, cigarettes, uncomplicated; D64.9 Anemia, unspecified; I42.9 Cardiomyopathy, unspecified; Z79.82 Long term (current) use of aspirin; Z99.2 Dependence on renal dialysis; Z91.11 Patient's noncompliance with dietary regimen; Z91.14 Patient's other noncompliance with medication regimen; Y84.8 Other medical procedures as the cause of abnormal reaction of the patient, or of later complication, without mention of misadventure at the time of the procedure; Y92.230 Patient room in hospital as the place of occurrence of the external cause
CPT/HCPCS: 71045; 71046; 78452; 80048; 80053; 82550; 82553; 82962; 83036; 83735; 84100; 84443; 84484; 85025; 85610; 85730; 87340; 90935; 93005; 93017; A9500; A9505; J0360; J1644; J2785; J2997; Q4081

== ENCOUNTER 2018-08-01 21:23 | Emergency (ER) | payer SELFPAY ==
[~2018-08-01] VITALS: Ht 170.2 cm; Wt 76.0 kg
[~2018-08-01 21:23] MED LIST changes: +CARV25TA97 PO; -LOSA25TA2 PO
[2018-08-01 21:25] VITALS: BP 162/119; PULSE 110; RESP 27; Ht 170.2 cm; Wt 76.0 kg
== END 2018-08-02 00:19 | disposition left against medical advice (07) ==
LOC: E/R 21:23
DX: Z53.21 Procedure and treatment not carried out due to patient leaving prior to being seen by health care provider (principal)
CPT/HCPCS: 93005

== ENCOUNTER 2018-08-17 01:40 | Inpatient (IN) | payer OTHER ==
[~2018-08-17] VITALS: Ht 175.3 cm; Wt 76.4 kg
[2018-08-17] VITALS (27 sets, daily range): BP systolic 131–187; BP diastolic 91–137; PULSE 99–116; RESP 17–22; Ht 175.3 cm; Wt 76.4 kg
--- NOTE | 2018-08-17 03:07 | ERD ---
ER Documentation Chief Complaint Chief Complaint sob x 1 day, missed dialysis yesterday HPI This is a 38-year-old male who missed dialysis yesterday. His last dialysis was on Monday. He says he feels volume overloaded and short of breath so he is here because of this reason and needs to get dialysis. No chest pain fever. No leg edema. He has dyspnea on exertion and orthopnea. He has renal failure due to uncontrolled hypertension ROS All systems reviewed and are negative except as per history of present illness. Medications Home Meds Active Scripts Sevelamer Carbonate (Sevelamer Carbonate) 0.8 Gm Powd.pack, 0.8 GM PO WITH MEALS for 90 Days Prov:REASASKIA DO 07/14/18 Reported Medications Losartan Potassium* (Losartan Potassium*) 100 Mg Tablet, 100 MG PO DAILY for 30 Days, #30 take 1 tablet by mouth once daily 08/17/18 Aspirin* (Aspirin* EC) 81 Mg Tablet.dr, 81 MG PO DAILY for 30 Days, #30 take 1 tablet by mouth once daily 08/17/18 Nifedipine (Afeditab CR) 60 Mg Tablet.sa, 60 MG PO DAILY for 30 Days, #30 08/17/18 Carvedilol* (Coreg*) 25 Mg Tablet, 25 MG PO BID, #60 TAB 07/26/18 Discontinued Reported Medications Carvedilol* (Coreg*) 25 Mg Tablet, 25 MG PO BID, #60 TAB 07/26/18 Discontinued Scripts Carvedilol* (Carvedilol*) 12.5 Mg Tablet, 25 MG PO BID for 30 Days, TAB Prov:DMITRY GR DO 07/26/18 Allergies Allergies: Coded Allergies: No Known Allergy (Unverified , 05/24/18) PMhx/Soc History of Surgery: No Anesthesia Reaction: No Hx Neurological Disorder: No Hx Respiratory Disorders: Yes (pulmonary edema) Hx Cardiac Disorders: Yes (HTN) Hx Psychiatric Problems: No Hx Miscellaneous Medical Probl: No Hx Alcohol Use: No Hx Substance Use: No Hx Tobacco Use: No FmHx Family History: No coronary disease Physical Exam Vitals Vital Signs Date Temp Pulse Resp B/P (MAP) Pulse Ox O2 O2 Flow FiO2 Time Delivery Rate 08/17/18 115 22 177/134 95 Room Air 03:05 (148) 3/15/19 Nasal 2.0 03:05 Cannula 08/17/18 98.1 115 22 188/130 96 01:54 (149) Physical Exam Const: Well-developed, well-nourished Head: Atraumatic, normocephalic Eyes: Normal Conjunctiva, PERRLA, EOMI, normal sclera, no nystagmus ENT: Normal External Ears, Nose and Mouth, moist mucus membranes. Neck: Full range of motion. No meningismus, no lymphadenopathy. Resp: Decreased breath sounds bilaterally especially in the bases Cardio: Regular rate and rhythm, no murmurs, S1 S2 present Abd: Soft, non tender x 4, non distended. Normal bowel sounds, no guarding or rebound, no pulsitile abdominal masses or bruits Skin: No petechiae or rashes, no ecchymosis , no maculopapular rash Back: No midline or flank tenderness Ext: No cyanosis, or edema, FROM x 4, normal inspection, neurovascularly intact x 4 Neur: Awake and alert, STR 5/5 x 4, sensation intact x 4, no focal findings, cerebellum intact Psych: Normal Mood and Affect Result Diagram: 08/17/18 0322 08/17/18 0322 Results 24 hrs Laboratory Tests Test 08/17/18 03:22 White Blood Count 7.9 10^3/ul Red Blood Count 3.13 10^6/ul Hemoglobin 9.8 g/dl Hematocrit 30.0 % Mean Corpuscular Volume 95.8 fl Mean Corpuscular Hemoglobin 31.3 pg Mean Corpuscular Hemoglobin Concent 32.7 g/dl Red Cell Distribution Width 15.7 % Platelet Count 189 10^3/UL Mean Platelet Volume 9.9 fl Immature Granulocytes % 0.300 % Neutrophils % 80.9 % Lymphocytes % 12.9 % Monocytes % 4.5 % Eosinophils % 1.0 % Basophils % 0.4 % Nucleated Red Blood Cells % 0.0 /100WBC Immature Granulocytes # 0.020 10^3/ul Neutrophils # 6.4 10^3/ul Lymphocytes # 1.0 10^3/ul Monocytes # 0.4 10^3/ul Eosinophils # 0.1 10^3/ul Basophils # 0.0 10^3/ul Nucleated Red Blood Cells # 0.0 10^3/ul Sodium Level 138 mmol/L Potassium Level 4.2 mmol/L Chloride Level 100 mmol/L Carbon Dioxide Level 19 mmol/L Anion Gap 19 Blood Urea Nitrogen 61 mg/dl Creatinine 12.28 mg/dl Est Glomerular Filtrat Rate mL/min 5 mL/min Glucose Level 120 mg/dl Calcium Level 9.1 mg/dl Total Bilirubin 0.3 mg/dl Direct Bilirubin 0.00 mg/dl Indirect Bilirubin 0.3 mg/dl Aspartate Amino Transf (AST/SGOT) 31 IU/L Alanine Aminotransferase (ALT/SGPT) 29 IU/L Alkaline Phosphatase 96 IU/L Troponin I 0.117 ng/ml Total Protein 7.0 g/dl Albumin 4.0 g/dl Globulin 3.00 g/dl Albumin/Globulin Ratio 1.33 Current Medications Medications Dose Sig/Anirudh Start Time Status Last (Trade) Ordered Route PRN Stop Time Admin Dose Reason Admin Nicardipine 30 mg ONCE ONCE 08/17/18 DC 08/17/18 HCl PO 04:30 04:22 (Cardene) 08/17/18 04:31 Hydralazine 10 mg ONCE ONCE 08/17/18 DC 08/17/18 HCl IV 04:30 04:22 (Apresoline) 08/17/18 04:31 Procedures/MDM EKG: Rate/Rhythm: Sinus tachycardia heart rate 114 QRS, ST, QT: NORMAL [place], QRS, QT] Impression: Sinus tachycardia Chest X-ray 1V Interpreted by me: Soft Tissue: No acute abnormalities Bones: No acute abnormalities Mediastinum/Cardiac Silhouette/Lungs: Cardiomegaly with vascular congestion with intact permacath Paging Dr. Gr for admission for dialysis. Patient is volume overloaded and symptomatic. O2 sats 95% on 2 L Departure Diagnosis: Primary Impression: Volume overload Hypervolemia type: unspecified Qualified Codes: E87.70 - Fluid overload, unspecified Condition: Stable MAYRA GREGG DO Aug 17, 2018 03:07
[2018-08-17] MEDS ORDERED: ASPI-817 PO (03:18)
[2018-08-17] MEDS ORDERED: LOSA100T15 PO (03:18)
[2018-08-17] MEDS ORDERED: NIFE60TA18 PO (03:18)
[2018-08-17] MEDS ORDERED: hydrALAzine 20 MG INJ IV ONE (04:30)
[2018-08-17] MEDS ORDERED: NICARDipine HCL 30 MG CAPSULE PO ONE (04:30)
[2018-08-17] MEDS ORDERED: ONDANSETRON 4 MG INJ IV PRN (06:00)
[2018-08-17] MEDS ORDERED: ACETAMINOPHEN 325 MG TAB PO PRN (06:00)
[2018-08-17] MEDS: LOSARTAN 50 MG TAB PO SCH ×2 (10:30→14:37)
[2018-08-17] MEDS: NIFEdipine (XL) 60 MG TAB PO SCH ×2 (10:30→11:51)
[2018-08-17] MEDS ORDERED: SEVELAMER CARBONATE 0.8 GM PKT PO SCH (11:50)
--- NOTE | 2018-08-17 12:01 | HP ---
DATE OF ADMISSION: 08/17/2018 CHIEF COMPLAINT: Shortness of breath. HISTORY OF PRESENT ILLNESS: This is a 38-year-old male well known to me with a past medical history of end-stage renal disease on dialysis Monday, , Monday, last hemodialysis was Monday. A ccess Perm-A-Cath. 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 Norris Hunter. The patient also has a histo ry of hypertension, mineral bone disorder, who presents to [facility] with shortnes s of breath. The patient states that he missed his last hemodialysis on . The patient, humera christian, developed sudden shortness of breath in the middle of the night. As a result, he came into [facility] Emergency Room. Upon arrival, patient was hypertensive with a blood pressure in the 170s. A chest x-ray was obtained which showed pulmonary edema. Patient was subsequently admitted to telemetry for evaluation. Upon my evaluation, the patient at this time is currently denying any fevers, chills or nausea, vomit ing. Patient is complaining of shortness of breath. PAST MEDICAL HISTORY: History of end-stage renal disease, history of hypertension, history of anemia , history of mineral bone disorder, history of medical noncompliance. PAST SURGICAL HISTORY: Status post Perm-A-Cath placement. FAMILY HISTORY: No family history of kidney disease. SOCIAL HISTORY: Does not drink, smoke or do drugs. MEDICATIONS: The patient's medications have been reviewed. REVIEW OF SYSTEMS: A 14-point review of systems was conducted. Pertinent positives stated in HPI, o therwise negative. PHYSICAL EXAMINATION: VITAL SIGNS: Blood pressure is 157/118, pulse 109, temperature 97.6. HEENT: Head is normocephalic. NECK: Supple. HEART: Regular rate. LUNGS: Show diminished breath sounds at base. Positive crackles. ABDOMEN: Soft, nontender to palpation without rebound or guarding. EXTREMITIES: Negative for clubbing, cyanosis, no edema. DERMATOLOGIC: No rashes. MUSCULOSKELETAL: No joint effusion. NEUROLOGIC: No focal deficits. LABORATORY DATA: Shows a white count 5.9, hemoglobin 9.8, platelet count is 189. Sodium 138, potass ium 4.2, BUN 61, creatinine 12.28. ASSESSMENT AND PLAN: This is a 38-year-old male who presents with: 1. Acute hypoxic respiratory failure, etiology secondary to pulmonary edema due to end-stage renal d isease. Plan is for urgent hemodialysis with ultrafiltration. Will monitor closely. 2. End-stage renal disease. Plan is for dialysis today. We will dialyze for 3-1/2 hours on 3 K bat h, calcium 2.5, ultrafiltrate approximately 2 to 3 liters. 3. Anemia. Monitor hemoglobin and hematocrit levels. We will give Epogen with dialysis. 4. Mineral bone disorder, monitor calcium and phosphorus levels. 5. Hypertension in part due to increased intravascular volume. We will continue her blood pressure regimen. Continue ultrafiltration dialysis. 6. Heart failure. The patient has ejection fraction 25%. The patient is status post stress test wi th no evidence of reversible disease. Continue medical management. 7. Gastrointestinal and deep vein thrombosis prophylaxis. Dictated By: DMITRY KELLER DO NR/NTS Conf#: [id number] DID#: [id number] CC: DMITRY KELLER DO;*EndCC*
[2018-08-17] MEDS: HEPARIN 1000 UNITS/ML 10 ML INJ CATHETER SCH (17:59)
[2018-08-17] MEDS: SEVELAMER CARBONATE 800 MG TABLET PO SCH (18:00)
[2018-08-18] VITALS (30 sets, daily range): BP systolic 125–166; BP diastolic 70–119; PULSE 74–103; RESP 16–20
[2018-08-18] MEDS: SEVELAMER CARBONATE 800 MG TABLET PO SCH ×3 (08:49→17:49)
[2018-08-18] MEDS: ASPIRIN (EC) 81 MG TAB PO SCH (08:49)
[2018-08-18] MEDS: NIFEdipine (XL) 60 MG TAB PO SCH ×2 (08:51→20:01)
[2018-08-18] MEDS: LOSARTAN 50 MG TAB PO SCH ×2 (08:51→17:49)
--- NOTE | 2018-08-18 10:31 | DS ---
Date/Time of Note Date/Time of Note DATE: 08/18/18 TIME: 10:29 Discharge Summary Admission/Discharge Info Admit Date/Time Aug 17, 2018 at 06:35 Discharge Date/Time Hospital Course HISTORY OF PRESENT ILLNESS: This is a 38-year-old male well known to me with a past medical history of end-stage renal disease on dialysis Monday, , Monday. The patient also has a history of hypertension, mineral bone disorder, who presents to [facility] with shortness of breath. Upon arrival, patient was hypertensive with a blood pressure in the 170s. A chest x-ray was obtained which showed pulmonary edema. Patient was subsequently admitted to telemetry for evaluation. he was dialyzed yesterday with improvement in his symptoms he is awaiting HD today after which he will be discharged while in [facility] he was also treated for: 1. Acute hypoxic respiratory failure, etiology secondary to pulmonary edema due to end-stage renal disease. 2. End-stage renal disease. Plan is for dialysis today. he will be seen again during treatment 3. Anemia. Monitor hemoglobin and hematocrit levels. We will give Epogen with dialysis. 4. Mineral bone disorder, monitor calcium and phosphorus levels. 5. Hypertension in part due to increased intravascular volume. We will continue her blood pressure regimen. Continue ultrafiltration dialysis. 6. Heart failure. The patient has ejection fraction 25%. The patient is status post stress test with no evidence of reversible disease. Continue medical management. 7. Gastrointestinal and deep vein thrombosis prophylaxis. will dc in stable condition follow up in HD unit in 2 days PHYSICAL EXAMINATION: HEENT: Head is normocephalic. NECK: Supple. HEART: Regular rate. LUNGS: Show diminished breath sounds at base. Positive crackles. ABDOMEN: Soft, nontender to palpation without rebound or guarding. EXTREMITIES: Negative for clubbing, cyanosis, no edema. DERMATOLOGIC: No rashes. MUSCULOSKELETAL: No joint effusion. NEUROLOGIC: No focal deficits. Home Meds Active Scripts Sevelamer Carbonate (Sevelamer Carbonate) 0.8 Gm Powd.pack, 0.8 GM PO WITH MEALS for 90 Days Prov:SASKIA LUCIA DO 07/14/18 Reported Medications Losartan Potassium* (Losartan Potassium*) 100 Mg Tablet, 100 MG PO DAILY for 30 Days, #30 take 1 tablet by mouth once daily 08/17/18 Aspirin* (Aspirin* EC) 81 Mg Tablet.dr, 81 MG PO DAILY for 30 Days, #30 take 1 tablet by mouth once daily 08/17/18 Nifedipine (Afeditab CR) 60 Mg Tablet.sa, 60 MG PO DAILY for 30 Days, #30 08/17/18 Carvedilol* (Coreg*) 25 Mg Tablet, 25 MG PO BID, #60 TAB 07/26/18 Discontinued Reported Medications Carvedilol* (Coreg*) 25 Mg Tablet, 25 MG PO BID, #60 TAB 07/26/18 Discontinued Scripts Carvedilol* (Carvedilol*) 12.5 Mg Tablet, 25 MG PO BID for 30 Days, TAB Prov:DMITRY KELLER DO 07/26/18 Primary Care Provider [facility] SASKIA LUCIA DO Aug 18, 2018 10:31
[2018-08-18] MEDS: HEPARIN 1000 UNITS/ML 10 ML INJ CATHETER SCH (17:36)
[2018-08-18] MEDS ORDERED: MINOXIDIL 2.5 MG TAB PO ONE (22:30)
[2018-08-19 00:34] VITALS: PULSE 95
[2018-08-19 04:15] VITALS: PULSE 92
[2018-08-19 04:33] VITALS: BP 137/89; PULSE 89; RESP 16
[2018-08-19 07:52] VITALS: BP 143/93; PULSE 96; RESP 18
[2018-08-19] MEDS: SEVELAMER CARBONATE 800 MG TABLET PO SCH (08:06)
[2018-08-19] MEDS: NIFEdipine (XL) 60 MG TAB PO SCH (08:06)
[2018-08-19] MEDS: LOSARTAN 50 MG TAB PO SCH (08:07)
[2018-08-19] MEDS: ASPIRIN (EC) 81 MG TAB PO SCH (08:07)
[2018-08-19 08:11] VITALS: PULSE 96
[2018-08-19 10:12] VITALS: BP 140/91
== END 2018-08-19 10:35 | disposition home health service (06) | DRG 291 ==
LOC: E/R 01:40 → TEL 05:39 → OBSVTOIN 06:35
PROVIDERS: ADMIT Internal Medicine; ATTEND Internal Medicine
PROC: 5A1D70Z Performance of Urinary Filtration, Intermittent, Less than 6 Hours Per Day (ICD-10-PCS; principal; 2018-08-17)
DX: I13.2 Hypertensive heart and chronic kidney disease with heart failure and with stage 5 chronic kidney disease, or end stage renal disease (principal); N18.6 End stage renal disease; I50.9 Heart failure, unspecified; Z99.2 Dependence on renal dialysis; D64.9 Anemia, unspecified; Z91.19 Patient's noncompliance with other medical treatment and regimen
CPT/HCPCS: 36415; 71045; 80053; 84484; 85025; 87081; 87340; 90935; 93005; 96374; G0378; J0360; J1644

== ENCOUNTER 2018-09-19 07:15 | Inpatient (IN) | payer OTHER ==
[2018-09-19] VITALS (46 sets, daily range): BP systolic 122–180; BP diastolic 85–132; PULSE 84–120; RESP 14–21; Ht 175.3 cm; Wt 73.7 kg
[~2018-09-19] VITALS: Ht 175.3 cm; Wt 73.7 kg
[~2018-09-19 07:15] MED LIST changes: +ASPI-817 PO; -CARV12.579 PO; +LOSA100T15 PO; +NIFE60TA18 PO
[2018-09-19] MEDS ORDERED: NITROGLYCERIN 50 MG/D5W (PMX) 250 ML IV STA (07:30)
--- NOTE | 2018-09-19 08:23 | ERD ---
ER Documentation Chief Complaint Chief Complaint SOB - DIALYSIS - HAD DIALYSIS YESTERDAY HPI This is a 38-year-old male with a prior history of renal failure, who is dialysis dependent who presents with shortness of breath for since last night, he is dialyzed Saturdays, he has right-sided permacath for access. He has not had a fever, he was last dialyzed yesterday, he does not make urine. He currently denies any chest pain, there are no alleviating or aggravating factors. ROS All systems reviewed and are negative except as per history of present illness. Medications Home Meds Active Scripts Sevelamer Carbonate (Sevelamer Carbonate) 0.8 Gm Powd.pack, 0.8 GM PO WITH MEALS for 90 Days Prov:SASKIA LUCIA DO 07/14/18 Reported Medications Losartan Potassium* (Losartan Potassium*) 100 Mg Tablet, 100 MG PO DAILY for 30 Days, #30 take 1 tablet by mouth once daily 08/17/18 Aspirin* (Aspirin* EC) 81 Mg Tablet.dr, 81 MG PO DAILY for 30 Days, #30 take 1 tablet by mouth once daily 08/17/18 Nifedipine (Afeditab CR) 60 Mg Tablet.sa, 60 MG PO DAILY for 30 Days, #30 08/17/18 Carvedilol* (Coreg*) 25 Mg Tablet, 25 MG PO BID, #60 TAB 07/26/18 Allergies Allergies: Coded Allergies: No Known Allergy (Unverified , 05/24/18) PMhx/Soc History of Surgery: Yes (appendectomy) Anesthesia Reaction: No Hx Neurological Disorder: No Hx Respiratory Disorders: No Hx Cardiac Disorders: Yes (HTN) Hx Psychiatric Problems: No Hx Miscellaneous Medical Probl: No Hx Alcohol Use: No Hx Substance Use: No Hx Tobacco Use: No Smoking Status: Never smoker Physical Exam Vitals Vital Signs Date Temp Pulse Resp B/P (MAP) Pulse Ox O2 O2 Flow FiO2 Time Delivery Rate 09/19/18 94 32 176/145 100 BIPAP 07:59 (155) 09/19/18 96 100 35 07:53 09/19/18 98.8 104 24 190/145 96 07:18 (160) Physical Exam Const: Tachypneic mild respiratory distress Head: Atraumatic Eyes: Normal Conjunctiva ENT: Normal External Ears, Nose and Mouth. Permacath site clean dry and intact Neck: Full range of motion. No meningismus. Resp: Decreased breath sounds bilaterally, crackles on the right side JVD no JVD Lower extremity edema Cardio: Regular rate and rhythm, no murmurs Abd: Soft, non tender, non distended. Normal bowel sounds Skin: No petechiae or rashes Back: No midline or flank tenderness Ext: No cyanosis, trace bilateral lower extremity edema Neur: Awake and alert Psych: Normal Mood and Affect Result Diagram: 09/19/18722 Results 24 hrs Laboratory Tests Test 09/19/18 07:23 09/19/18 07:28 09/19/18 07:32 White Blood Count 4.7 10^3/ul Red Blood Count 3.13 10^6/ul Hemoglobin 10.0 g/dl Hematocrit 30.1 % Mean Corpuscular Volume 96.2 fl Mean Corpuscular Hemoglobin 31.9 pg Mean Corpuscular 33.2 g/dl Hemoglobin Concent Red Cell Distribution Width 17.0 % Platelet Count 130 10^3/UL Mean Platelet Volume 10.3 fl Immature Granulocytes % 0.400 % Neutrophils % 70.2 % Lymphocytes % 18.8 % Monocytes % 7.9 % Eosinophils % 2.3 % Basophils % 0.4 % Nucleated Red Blood Cells % 0.0 /100WBC Immature Granulocytes # 0.020 10^3/ul Neutrophils # 3.3 10^3/ul Lymphocytes # 0.9 10^3/ul Monocytes # 0.4 10^3/ul Eosinophils # 0.1 10^3/ul Basophils # 0.0 10^3/ul Nucleated Red Blood Cells # 0.0 10^3/ul Prothrombin Time 13.6 Sec Prothrombin Time Ratio 1.1 INR International Normalized Ratio 1.03 POC Venous Lactate 0.6 mmol/L Current Medications Medications Dose Sig/Anirudh Start Time Status Last (Trade) Ordered Route PRN Stop Time Admin Dose Reason Admin 250 ml @ ONCE STAT 09/19/18 09/19/18 Nitroglycerin 12 mls/hr IV 07:30 07:59 / Dextrose 09/20/18 04:19 Procedures/MDM This is a 38-year-old male presents for evaluation of shortness of breath, his history and physical is most consistent with likely volume overload, in the setting of renal failure. I noted his blood pressure to be elevated, his chest x-ray was consistent with pulmonary edema, he has no evidence of severe sepsis or septic shock, his EKG was nonischemic, he will be admitted for further evaluation and treatment for his volume status. He was noted to be hypertensive, and is started on nitro drip, as well as BiPAP. EKG: Rate/Rhythm: Normal Sinus Rhythm QRS, ST, T-waves: No changes consistent w/ acute ischemia Impression: No evidence of ischemia or arrhythmia Departure Diagnosis: Primary Impression: Shortness of breath Condition: Stable OLEG FIGUEROA MD Sep 19, 2018 08:23
--- NOTE | 2018-09-19 10:26 | CONS ---
Assessment/Plan Assessment/Plan Hospital Course (Demo Recall) Congestive heart failure: Acute on chronic secondary systolic heart failure and also noncompliant with the diet and medication Renal failure on dialysis Severe cardiomyopathy hx of Abnormal troponin with no chest pain History of poor compliance with medications Recommendations Importance of compliant with medication diet and hemodialysis explained to the patient. Lexiscan stress test done 07/25/2018 shows no significant reversible ischemia consistent with his severe nonischemic cardiomyopathy Continue with the Coreg and losartan. HD as per renal BIPAP prn Thank you for his referral will continue to follow along with you DENILSON SCOTT MD FAC Consultation Date/Type/Reason Admit Date/Time Date of Consultation: Sep 19, 2018 Type of Consult Cardiology Reason for Consultation CHF Requesting Provider: DMITRY KELLER DO Date/Time of Note DATE: 09/19/18 TIME: 10:19 Hx of Present Illness Interventional cardiology consultation note Chief complaint: sob Reason for consult: + BNP. CHF History of present illness: Thank you for this referral. History was obtained from the patient who is a poor historian discussion with the staff and physicians. Old chart was reviewed This is a 38-year-old [place] gentleman with history of renal failure on dialysis hypertension who came to emergency room above complaint. Patient stated that he had hemodialysis yesterday. but today he became more sob. he has not taken any of his meds today Patient has reported to me in the past that he "eats whatever he wants to"and he does not take his medication regularly because " they do not work" . Patient on record was reviewed he was admitted multiple times to the hospital. He came in and was noted to be fluid overloaded and a chest x-ray. After he had missed his hemodialysis and came in with fluid overload his echocardiogram done last admission and personally reviewed which shows severe LV dysfunction and dilated left ventricle. he has had a STRESS TEST ON JUL 2018 which shows EF 24% AND NO ischemia Allergies: No known drug allergies Medications were reviewed as per medical reconciliation sheet Family history: Denies any history of early coronary artery disease Social history: Actively smokes but denies any drug abuse to me. Apparently has been a heavy drinker but he said that he has quit in January 2018 Past medical history: Hypertension, renal failure on dialysis cardiomyopathy congestive heart failure Review of system: Patient denies all others except for above-mentioned Past Medical History Home Meds Active Scripts Sevelamer Carbonate (Sevelamer Carbonate) 0.8 Gm Powd.pack, 0.8 GM PO WITH MEALS for 90 Days Prov:SASKIA LUCIA DO 07/14/18 Reported Medications Losartan Potassium* (Losartan Potassium*) 100 Mg Tablet, 100 MG PO DAILY for 30 Days, #30 take 1 tablet by mouth once daily 08/17/18 Aspirin* (Aspirin* EC) 81 Mg Tablet.dr, 81 MG PO DAILY for 30 Days, #30 take 1 tablet by mouth once daily 08/17/18 Nifedipine (Afeditab CR) 60 Mg Tablet.sa, 60 MG PO DAILY for 30 Days, #30 08/17/18 Carvedilol* (Coreg*) 25 Mg Tablet, 25 MG PO BID, #60 TAB 07/26/18 Medications Current Medications Nitroglycerin/ Dextrose 250 ml @ 12 mls/hr ONCE STAT IV Last administered on 09/19/18at 07:59; Admin Dose 12 MLS/HR; Start 09/19/18 at 07:30; Stop 09/20/18 at 04:19 Aspirin (Halfprin) 81 mg DAILY PO ; Start 09/20/18 at 09:00 Carvedilol (Coreg) 25 mg BID PO ; Start 09/19/18 at 21:00 Losartan Potassium (Cozaar) 100 mg DAILY PO ; Start 09/20/18 at 09:00 Nifedipine (Procardia Xl) 60 mg DAILY PO ; Start 09/20/18 at 09:00 Sevelamer Carbonate (Renvela) 0.8 gm WITH MEALS PO ; Start 09/19/18 at 12:00 Hydralazine HCl (Apresoline) 50 mg Q6 PRN PO htn; Start 09/19/18 at 10:00 Allergies: Coded Allergies: No Known Allergy (Unverified , 09/19/18) Social History Smoking Status: Never smoker Exam/Review of Systems Vital Signs Vitals Vital Signs Date Temp Pulse Resp B/P (MAP) Pulse Ox O2 O2 Flow FiO2 Time Delivery Rate 09/19/18 95 18 177/132 100 BIPAP 10:00 (147) 09/19/18 35 08:51 09/19/18 98.8 07:18 Exam Exam General: With respiratory distress on BiPAP HEENT: NC/AT. pupils are equal. round. NECK: . no stridor. CV: Tachycardic. systolic murmur; no gallop or rubs. PULM: no wheezing + rhonchi. GI: SOFT, NT, ND, no rebound or guarding Extremity: trace B/L LE edema. no clubbing. neuro: awake and alert, OX3. Psych: calm rectal: deferred : normal EKG shows normal sinus rhythm/sinus tachycardia. ST-T wave abnormalities Chest x-ray was personally reviewed which showed congestive heart failure Labs Result Diagram: 09/19/1872209/19/18722 Results 24hrs Laboratory Tests Test 09/19/18 07:23 09/19/18 07:28 09/19/18 07:32 White Blood Count 4.7 #L Red Blood Count 3.13 L Hemoglobin 10.0 L Hematocrit 30.1 L Mean Corpuscular Volume 96.2 Mean Corpuscular Hemoglobin 31.9 Mean Corpuscular Hemoglobin Concent 33.2 Red Cell Distribution Width 17.0 H Platelet Count 130 #L Mean Platelet Volume 10.3 Immature Granulocytes % 0.400 Neutrophils % 70.2 Lymphocytes % 18.8 Monocytes % 7.9 Eosinophils % 2.3 Basophils % 0.4 Nucleated Red Blood Cells % 0.0 Immature Granulocytes # 0.020 Neutrophils # 3.3 Lymphocytes # 0.9 Monocytes # 0.4 Eosinophils # 0.1 Basophils # 0.0 Nucleated Red Blood Cells # 0.0 Sodium Level 141 Potassium Level 4.0 Chloride Level 101 Carbon Dioxide Level 23 Anion Gap 17 H Blood Urea Nitrogen 71 H Creatinine 12.97 H Est Glomerular Filtrat Rate mL/min 4 L Glucose Level 105 Calcium Level 9.4 Total Bilirubin 0.4 Direct Bilirubin 0.00 Indirect Bilirubin 0.4 Aspartate Amino Transf (AST/SGOT) 19 Alanine Aminotransferase (ALT/SGPT) 29 Alkaline Phosphatase 89 Troponin I 0.091 B-Type Natriuretic Peptide > 563399 H Total Protein 7.1 Albumin 4.1 Globulin 3.00 Albumin/Globulin Ratio 1.36 Prothrombin Time 13.6 Prothrombin Time Ratio 1.1 INR International Normalized Ratio 1.03 Lactic Acid Level 0.9 POC Venous Lactate 0.6 Medications Medications Current Medications Nitroglycerin/ Dextrose 250 ml @ 12 mls/hr ONCE STAT IV Last administered on 09/19/18at 07:59; Admin Dose 12 MLS/HR; Start 09/19/18 at 07:30; Stop 09/20/18 at 04:19 Aspirin (Halfprin) 81 mg DAILY PO ; Start 09/20/18 at 09:00 Carvedilol (Coreg) 25 mg BID PO ; Start 09/19/18 at 21:00 Losartan Potassium (Cozaar) 100 mg DAILY PO ; Start 09/20/18 at 09:00 Nifedipine (Procardia Xl) 60 mg DAILY PO ; Start 09/20/18 at 09:00 Sevelamer Carbonate (Renvela) 0.8 gm WITH MEALS PO ; Start 09/19/18 at 12:00 Hydralazine HCl (Apresoline) 50 mg Q6 PRN PO htn; Start 09/19/18 at 10:00 DENILSON SCOTT MD Sep 19, 2018 10:26
[2018-09-19] MEDS: SEVELAMER CARBONATE 0.8 GM PKT PO SCH ×3 (11:38→18:32)
[2018-09-19] MEDS: LOSARTAN 50 MG TAB PO SCH (12:09)
[2018-09-19] MEDS: NIFEdipine (XL) 60 MG TAB PO SCH (12:09)
[2018-09-19] MEDS: ASPIRIN (EC) 81 MG TAB PO SCH (12:09)
[2018-09-19] MEDS ORDERED: ACETAMINOPHEN 325 MG TAB PO PRN ×2 (13:30)
[2018-09-19] MEDS ORDERED: hydrALAzine 20 MG INJ IV PRN (15:30)
[2018-09-19] MEDS ORDERED: ALTEPLASE (CATHFLO) 2 MG INJ CATHETER PRN (16:00)
--- NOTE | 2018-09-19 16:27 | CONS ---
Assessment/Plan Assessment/Plan Assessment/Plan (Daily) 1. Renal failure currently on hemodialysis via permacath (permacath-low flow through cath: Currently refusing replacement of permacath) -Cathflo okayed through permacath to attempt to reestablish good flow -Eventual peritoneal dialysis placement once medically optimized -Limit nephrotoxic meds -Renally dose meds -HD Per renal 2. Acute on chronic secondary systolic heart failure: BNP: >175, 000 -Volume management -Cardiac optimization -Encourage compliance with diet and medications 3. Hypertension: -Medical management 4.Normocytic normochromic anemia: -Monitor and transfuse as needed 5. Leukocytopenia, thrombocytopenia: -Monitor Thank you. Patient seen and examined in collaboration with Dr. Adeel Hunter. Consultation Date/Type/Reason Admit Date/Time Date of Consultation: Sep 19, 2018 Type of Consult surgical Reason for Consultation permath, pd cath Requesting Provider: DMITRY KELLER DO Date/Time of Note DATE: 09/19/18 TIME: 16:03 Hx of Present Illness Freddie Flores is a 38-year-old man with past medical history of renal failure, currently on hemodialysis, hypertension, with a surgical history of umbilical hernia repair and open appendectomy, who presented to the ED with shortness of breath despite hemodialysis yesterday. Notably, he is not compliant with his recommended diet as well as medications. He was noted to be in fluid overload. Chest x-ray reveals severe cardiomegaly with pulmonary vascular congestion. Laboratory findings significant for elevated BNP of greater than 175,000. He is currently being managed for heart failure and receiving hemodialysis. He denies fevers, chills, congested cough, nausea, vomiting, change in bowel or bladder habits, seizure, rash. General surgery was asked to evaluate for feasibility of peritoneal dialysis catheter as well as permacath Exchange. Upon discussion with patient, he is refusing permacath exchange but is interested in peritoneal dialysis catheter. 12 point review of systems was performed and is negative except for as stated in HPI Past Medical History As above Home Meds Active Scripts Sevelamer Carbonate (Sevelamer Carbonate) 0.8 Gm Powd.pack, 0.8 GM PO WITH MEALS for 90 Days Prov:SASKIA HUNTER DO 07/14/18 Reported Medications Losartan Potassium* (Losartan Potassium*) 100 Mg Tablet, 100 MG PO DAILY for 30 Days, #30 take 1 tablet by mouth once daily 08/17/18 Aspirin* (Aspirin* EC) 81 Mg Tablet.dr, 81 MG PO DAILY for 30 Days, #30 take 1 tablet by mouth once daily 08/17/18 Nifedipine (Afeditab CR) 60 Mg Tablet.sa, 60 MG PO DAILY for 30 Days, #30 08/17/18 Carvedilol* (Coreg*) 25 Mg Tablet, 25 MG PO BID, #60 TAB 07/26/18 Medications Current Medications Nitroglycerin/ Dextrose 250 ml @ 12 mls/hr ONCE STAT IV Last administered on 09/19/18at 07:59; Admin Dose 12 MLS/HR; Start 09/19/18 at 07:30; Stop 09/20/18 at 04:19 Sevelamer Carbonate (Renvela) 0.8 gm WITH MEALS PO ; Start 09/19/18 at 11:45 Hydralazine HCl (Apresoline) 50 mg Q6 PRN PO htn Last administered on 09/19/18at 13:15; Admin Dose 50 MG; Start 09/19/18 at 10:00 Aspirin (Halfprin) 81 mg DAILY PO Last administered on 09/19/18at 12:09; Admin Dose 81 MG; Start 09/19/18 at 11:53 Carvedilol (Coreg) 25 mg BID PO ; Start 09/19/18 at 21:00 Losartan Potassium (Cozaar) 100 mg DAILY PO Last administered on 09/19/18at 12:09; Admin Dose 100 MG; Start 09/19/18 at 11:53 Nifedipine (Procardia Xl) 60 mg DAILY PO Last administered on 09/19/18at 12:09; Admin Dose 60 MG; Start 09/19/18 at 11:54 Acetaminophen (Tylenol Tab) 650 mg Q4H PRN PO MILD PAIN(1-3)OR ELEVATED TEMP; Start 09/19/18 at 13:30 Hydralazine HCl (Apresoline) 10 mg Q6H PRN IV SBP GREATER THAN 160; Start 09/19/18 at 15:30; Status UNV Alteplase, Recombinant (Cathflo (Activase)) 2 mg MAY REPEAT X1 PRN CATHETER IF CATHETER REMAINS OCCULUDED; Start 09/19/18 at 16:00; Status UNV Allergies: Coded Allergies: No Known Allergy (Unverified , 09/19/18) Past Surgical History As above Family History Significant Family History: no pertinent family hx Social History Smoking Status: Current every day smoker Exam/Review of Systems Exam Vitals Vital Signs Date Temp Pulse Resp B/P (MAP) Pulse Ox O2 O2 Flow FiO2 Time Delivery Rate 09/19/18 109 15:25 09/19/18 16 172/130 99 Room Air 15:13 (144) 09/19/18 97.8 3.0 12:00 09/19/18 35 08:51 Constitutional: alert, oriented, well developed Psych: nl mood/affect Head: normocephalic, atraumatic Eyes: nl conjunctiva, EOMI, nl lids, nl sclera ENMT: nl external ears & nose, nl lips & teeth, mucosa pink and moist Neck: supple, non-tender, jvd Respiratory: clear to auscultation, normal air movement, labored breathing (Minimal, on exertion); No congested cough Cardiovascular: regular rate and rhythm, nl pulses, edema (Minimal BLE pedal) Gastrointestinal: soft, non-tender; No distended, No tender Genitourinary - Male: nl penis, nl scrotum Musculoskeletal: nl extremities to inspection, nl gait and stance Extremities: normal pulses Neurological: nl mental status, nl speech, nl strength Skin: nl turgor; No rash or lesions Lymph: nl lymph nodes Results Result Diagram: 09/19/18 0723 09/19/18 0723 Results 24hrs Laboratory Tests Test 09/19/18 07:23 09/19/18 07:28 09/19/18 07:32 09/19/18 07:45 White Blood Count 4.7 #L Red Blood Count 3.13 L Hemoglobin 10.0 L Hematocrit 30.1 L Mean Corpuscular 96.2 Volume Mean Corpuscular 31.9 Hemoglobin Mean Corpuscular 33.2 Hemoglobin Concent Red Cell 17.0 H Distribution Width Platelet Count 130 #L Mean Platelet Volume 10.3 Immature 0.400 Granulocytes % Neutrophils % 70.2 Lymphocytes % 18.8 Monocytes % 7.9 Eosinophils % 2.3 Basophils % 0.4 Nucleated Red Blood 0.0 Cells % Immature 0.020 Granulocytes # Neutrophils # 3.3 Lymphocytes # 0.9 Monocytes # 0.4 Eosinophils # 0.1 Basophils # 0.0 Nucleated Red Blood 0.0 Cells # Sodium Level 141 Potassium Level 4.0 Chloride Level 101 Carbon Dioxide Level 23 Anion Gap 17 H Blood Urea Nitrogen 71 H Creatinine 12.97 H Est Glomerular 4 L Filtrat Rate mL/min Glucose Level 105 Calcium Level 9.4 Total Bilirubin 0.4 Direct Bilirubin 0.00 Indirect Bilirubin 0.4 Aspartate Amino 19 Transf (AST/SGOT) Alanine 29 Aminotransferase (AL T/SGPT) Alkaline Phosphatase 89 Troponin I 0.091 B-Type Natriuretic > 242778 H Peptide Total Protein 7.1 Albumin 4.1 Globulin 3.00 Albumin/Globulin 1.36 Ratio Prothrombin Time 13.6 Prothrombin Time 1.1 Ratio INR International 1.03 Normalized Ratio Lactic Acid Level 0.9 POC Venous Lactate 0.6 Hepatitis B Surface NEGATIVE Antigen Hepatitis B Surface POSITIVE H Antibody Medications Medication Current Medications Nitroglycerin/ Dextrose 250 ml @ 12 mls/hr ONCE STAT IV Last administered on 09/19/18at 07:59; Admin Dose 12 MLS/HR; Start 09/19/18 at 07:30; Stop 09/20/18 at 04:19 Sevelamer Carbonate (Renvela) 0.8 gm WITH MEALS PO ; Start 09/19/18 at 11:45 Hydralazine HCl (Apresoline) 50 mg Q6 PRN PO htn Last administered on 09/19/18at 13:15; Admin Dose 50 MG; Start 09/19/18 at 10:00 Aspirin (Halfprin) 81 mg DAILY PO Last administered on 09/19/18at 12:09; Admin Dose 81 MG; Start 09/19/18 at 11:53 Carvedilol (Coreg) 25 mg BID PO ; Start 09/19/18 at 21:00 Losartan Potassium (Cozaar) 100 mg DAILY PO Last administered on 09/19/18at 12:0 9; Admin Dose 100 MG; Start 09/19/18 at 11:53 Nifedipine (Procardia Xl) 60 mg DAILY PO Last administered on 09/19/18at 12:09; Admin Dose 60 MG; Start 09/19/18 at 11:54 Acetaminophen (Tylenol Tab) 650 mg Q4H PRN PO MILD PAIN(1-3)OR ELEVATED TEMP; Start 09/19/18 at 13:30 Hydralazine HCl (Apresoline) 10 mg Q6H PRN IV SBP GREATER THAN 160; Start 09/19/18 at 15:30; Status UNV Alteplase, Recombinant (Cathflo (Activase)) 2 mg MAY REPEAT X1 PRN CATHETER IF CATHETER REMAINS OCCULUDED; Start 09/19/18 at 16:00; Status UNV JEROME VERMA RETAIL ADVISOR Sep 19, 2018 16:14
--- NOTE | 2018-09-19 17:45 | HP ---
DATE OF ADMISSION: 09/19/2018 CHIEF COMPLAINT: Hypertensive urgency, respiratory failure, volume overload. HISTORY OF PRESENT ILLNESS: This is a 38-year-old male with a past medical history of end-stage gaurav l disease on dialysis Monday, , Monday, access of PermCath. The patient's primary nephrol ogist is Dr. Norris Lucia. The patient has a history of hypertension, history of cardiomyopathy wi th ejection fraction of 25%, history of mineral bone disorder, anemia, who presents to [facility] with shortness of breath. The patient states he has been having increased shortness o f breath over the last several days. Yesterday, the patient had hemodialysis with approximately 3 li ters removed. However early this morning, the patient presents with worsening shortness of breath. The patient upon arrival to emergency room was noted to be in hypertensive urgency with systolic pres sures greater than 200. Chest x-ray showed evidence of pulmonary vascular congestion and edema. The patient was started on nitroglycerin drip and admitted to the intensive care unit. In terms of patient's renal history, I spoke with the patient's primary steam power plant operator, Dr. Lucia and said that the patient has had poor functioning of PermCath and may need PermCath exchange. Initiall y after speaking with the patient, he tells me that hemodialysis is not working well for him and is r equesting a possibility of switching to peritoneal dialysis. There have been no other reports of any hemoptysis, hematemesis or hematochezia. PAST MEDICAL HISTORY: History of end-stage renal disease, history of hypertension, history of anemia , history of mineral bone disorder, history of cardiomyopathy. PAST SURGICAL HISTORY: Status post PermCath placement. FAMILY HISTORY: No family history of kidney disease. SOCIAL HISTORY: Does not drink, smoke or do drugs. MEDICATIONS: Have been reviewed. REVIEW OF SYSTEMS: A 14-point review of systems was conducted. Pertinent positives in HPI, otherwis e negative. PHYSICAL EXAMINATION: VITAL SIGNS: Blood pressure is 167/119, respirations 16, pulse 113, temperature 97.8. HEENT: Head is normocephalic. NECK: Positive for JVD. HEART: Tachycardic. LUNGS: Show diminished breath sounds at the base. ABDOMEN: Soft, nontender to palpation without rebound or guarding. EXTREMITIES: Negative for clubbing, cyanosis. Positive edema. DERMATOLOGIC: No rashes. MUSCULOSKELETAL: No joint effusion. NEUROLOGIC: No focal deficits. LABORATORY DATA: Have been reviewed. IMAGING STUDIES: Have been reviewed. ASSESSMENT AND PLAN: This is a 38-year-old male who presents with: 1. Acute hypoxic respiratory failure. Etiology is secondary to volume overload, pulmonary edema and vascular congestion. Plan is for urgent hemodialysis with ultrafiltration approximately 2 to 3 lite rs. We will continue to monitor closely. Continue patient on BiPAP, wean off if possible. Consider pulmonary consult. 2. Hypertensive urgency. Etiology is due to increased intravascular volume. Plan is to continue ni troglycerin drip, wean off if possible. We will plan for ultrafiltration with dialysis. Continue cu rrent blood pressure regimen. 3. End-stage renal disease. The patient is on dialysis Monday, , Monday with access of a PermCath. Plan is for urgent hemodialysis today for ultrafiltration. We will dialyze for 3-1/2 desirae rs of 3K bath, calcium 2.5 goal, ultrafiltration approximately 3 liters. Plan for hemodialysis tomor row for continued solute clearance and volume removal. 4. History of cardiomyopathy. Continue current medical management. Continue blood pressure regimen . Continue ultrafiltration dialysis. 5. Anemia. Monitor hemoglobin and hematocrit levels. We will give Epogen as needed. 6. Mineral bone disorder. Monitor calcium and phosphorus levels. Resume phosphate binders. 7. Access. The patient currently has a hemodialysis catheter, may need a catheter exchange. The kimber issa is also requesting for possible peritoneal catheter placement as he is desiring to start perito ishan dialysis. We will place a general surgical consult for evaluation. 8. Gastrointestinal and deep venous thrombosis prophylaxis. Please note, I spent an additional 30 minutes of [id number] time with the patient, discussing advan leela directives and code status. The patient is full code. Dictated By: DMITRY KELLER DO NR/NTS Conf#: [id number] DID#: [id number] CC: GRAYSON LUCIA MD;*EndCC*
[2018-09-20] VITALS (33 sets, daily range): BP systolic 119–145; BP diastolic 75–105; PULSE 79–99; RESP 12–30
--- NOTE | 2018-09-20 08:14 | CONS ---
Consult Date/Type/Reason Admit Date/Time Sep 19, 2018 at 08:54 Initial Consult Date 09/19/18 Type of Consultation: CV Requesting Provider: DMITRY KELLER DO Date/Time of Note DATE: 09/20/18 TIME: 08:10 Subjective Interventional cardiology follow-up progress note/critical care Subjective: Case discussed with the staff. Telemetry was reviewed. Patient has remained in normal sinus rhythm. Patient has been placed yesterday on nitroglycerin drip and BiPAP. After hemodialysis his breathing has significantly improved and blood pressure has significantly improved. Currently patient is off BiPAP still in the ICU No chest pain or pressure. Breathing is much better now. Objective: General: Young man with no respiratory distress at the moment HEENT: NC/AT. pupils are equal. round. NECK: . no stridor. CV: Tolerating medium. systolic murmur; no gallop or rubs. PULM: no wheezing mild rhonchi. GI: SOFT, NT, ND, no rebound or guarding Extremity: trace B/L LE edema. no clubbing. neuro: awake and alert, OX3. Psych: calm rectal: deferred : normal EKG shows normal sinus rhythm/sinus tachycardia. ST-T wave abnormalities Chest x-ray was personally reviewed which showed congestive heart failure Review of the old chart shows an echocardiogram done July 2018 has shown: Mild concentric left ventricular hypertrophy. Moderate enlargement of left ventricle cavity. Severe global left ventricular systolic dysfunction. Ejection fraction is visually estimated at 25 %. Tissue Doppler/Mitral Doppler indices are consistent with restrictive physiology with markedly elevated left atrial pressure (Stage III-IV diastolic dysfunction). There is moderate enlargement of left atrium. Mild mitral annular calcification. Mild to moderate mitral valve regurgitation. Trileaflet aortic valve. Trace to mild aortic valve regurgitation. Normal appearance of the tricuspid valve. Estimated peak PA systolic pressure 55 mmHg. There is moderate tricuspid regurgitation. Normal size and no respiratory collapse consistent with elevated right atrial pressure. Small pericardial effusion. Pleural effusion seen. Objective Vitals Vital Signs Date Temp Pulse Resp B/P (MAP) Pulse Ox O2 O2 Flow FiO2 Time Delivery Rate 09/20/18 87 20 138/103 97 Room Air 06:00 (115) 09/20/18 98.5 04:00 09/19/18 21 19:05 09/19/18 3.0 12:00 Intake and Output 09/19/18 09/19/18 09/20/18 1515:00 23:00 07:00 IntakeIntake Total 26 ml 3 ml OutputOutput Total 200 ml 2900 ml BalanceBalance -174 ml -2897 ml Results/Medications Result Diagram: 09/20/18 0427 09/20/18 0427 Results 24 hrs Laboratory Tests Test 09/20/18 04:27 White Blood Count 4.0 L Red Blood Count 3.02 L Hemoglobin 9.3 L Hematocrit 28.0 L Mean Corpuscular Volume 92.7 Mean Corpuscular Hemoglobin 30.8 Mean Corpuscular Hemoglobin Concent 33.2 Red Cell Distribution Width 16.7 H Platelet Count 131 L Mean Platelet Volume 9.7 Immature Granulocytes % 0.300 Neutrophils % 60.1 Lymphocytes % 24.2 Monocytes % 11.8 H Eosinophils % 3.3 Basophils % 0.3 Nucleated Red Blood Cells % 0.0 Immature Granulocytes # 0.010 Neutrophils # 2.4 Lymphocytes # 1.0 Monocytes # 0.5 Eosinophils # 0.1 Basophils # 0.0 Nucleated Red Blood Cells # 0.0 Sodium Level 139 Potassium Level 3.7 Chloride Level 101 Carbon Dioxide Level 26 Anion Gap 12 Blood Urea Nitrogen 50 H Creatinine 10.08 #H Est Glomerular Filtrat Rate mL/min 6 L Glucose Level 92 Calcium Level 9.1 Phosphorus Level 6.8 H Magnesium Level 2.0 Home Meds Active Scripts Sevelamer Carbonate (Sevelamer Carbonate) 0.8 Gm Powd.pack, 0.8 GM PO WITH MEALS for 90 Days Prov:SASKIA LUCIA DO 07/14/18 Reported Medications Losartan Potassium* (Losartan Potassium*) 100 Mg Tablet, 100 MG PO DAILY for 30 Days, #30 take 1 tablet by mouth once daily 08/17/18 Aspirin* (Aspirin* EC) 81 Mg Tablet.dr, 81 MG PO DAILY for 30 Days, #30 take 1 tablet by mouth once daily 08/17/18 Nifedipine (Afeditab CR) 60 Mg Tablet.sa, 60 MG PO DAILY for 30 Days, #30 08/17/18 Carvedilol* (Coreg*) 25 Mg Tablet, 25 MG PO BID, #60 TAB 07/26/18 Medications Current Medications Sevelamer Carbonate (Renvela) 0.8 gm WITH MEALS PO ; Start 09/19/18 at 11:45 Hydralazine HCl (Apresoline) 50 mg Q6 PRN PO htn Last administered on 09/19/18at 13:15; Admin Dose 50 MG; Start 09/19/18 at 10:00 Aspirin (Halfprin) 81 mg DAILY PO Last administered on 09/19/18at 12:09; Admin Dose 81 MG; Start 09/19/18 at 11:53 Carvedilol (Coreg) 25 mg BID PO Last administered on 09/19/18at 21:09; Admin Dose 25 MG; Start 09/19/18 at 21:00 Losartan Potassium (Cozaar) 100 mg DAILY PO Last administered on 09/19/18at 12:09; Admin Dose 100 MG; Start 09/19/18 at 11:53 Nifedipine (Procardia Xl) 60 mg DAILY PO Last administered on 09/19/18at 12:09; Admin Dose 60 MG; Start 09/19/18 at 11:54 Acetaminophen (Tylenol Tab) 650 mg Q4H PRN PO MILD PAIN(1-3)OR ELEVATED TEMP; Start 09/19/18 at 13:30 Hydralazine HCl (Apresoline) 10 mg Q6H PRN IV SBP GREATER THAN 160; Start 09/19/18 at 15:30 Alteplase, Recombinant (Cathflo (Activase)) 2 mg MAY REPEAT X1 PRN CATHETER IF CATHETER REMAINS OCCULUDED Last administered on 09/19/18at 18:34; Admin Dose 2 MG; Start 09/19/18 at 16:00 Clonidine (Catapres) 0.1 mg Q6H PRN PO SBP > 160 Last administered on 09/19/18at 16:24; Admin Dose 0.1 MG; Start 09/19/18 at 16:30 Assessment/Plan Hospital Course (Demo Recall) Congestive heart failure: Acute on chronic secondary systolic heart failure and also noncompliant with the diet and medication Renal failure on dialysis Severe cardiomyopathy hx of Abnormal troponin with no chest pain and stress test showing no evidence of reversible ischemia History of poor compliance with medications Anemia Pericardial effusion Pulmonary hypertension Hypertension hypertensive urgency Recommendations Importance of compliant with medication diet and hemodialysis explained to the patient. Lexiscan stress test done 07/25/2018 shows no significant reversible ischemia consistent with his severe nonischemic cardiomyopathy Continue with the Coreg and losartan. HD as per renal. Plan for hemodialysis again today Oxygen and BIPAP prn Echocardiogram will be repeated today to evaluate for PA pressure pericardial effusion LV function More than 32 minutes of critical care time was spent treatment management is critically ill patient excluding any procedures Thank you for his referral will continue to follow along with you DENILSON SCOTT MD [facility] DENILSON SCOTT MD Sep 20, 2018 08:14
--- NOTE | 2018-09-20 08:21 | PN ---
DATE: 09/20/2018 SUBJECTIVE: The patient is currently stable. Off BiPAP. I spoke with the patient about another ses missael of dialysis today. I also discussed with him about the possibility of a Perm-A-Cath exchange. The patient was hesitant. No other events noted. OBJECTIVE: VITAL SIGNS: Blood pressure is 138/103, respirations 20, pulse 87, temperature 98.5. HEENT: Head is normocephalic. NECK: Supple. HEART: Regular rate. LUNGS: Show diminished breath sounds at the base. ABDOMEN: Soft, nontender to palpation without rebound or guarding. EXTREMITIES: Negative for clubbing, cyanosis, no edema. DERMATOLOGIC: No rashes. MUSCULOSKELETAL: No joint effusion. NEUROLOGIC: No change in exam. MEDICATIONS: The patient's medications have been reviewed. LABORATORY DATA: Reviewed. ASSESSMENT AND PLAN: 1. Acute hypoxemic respiratory failure, etiology is secondary to volume overload, pulmonary edema. The patient is clinically improving, currently off BiPAP. We will continue ultrafiltration with dial ysis. Continue nasal cannula. 2. Hypertensive urgency in part due to increased intravascular volume. The patient's blood pressure s are improving. Continue ultrafiltration with dialysis. Continue current blood pressure regimen. 3. End-stage renal disease. The patient will have another session of dialysis today to keep on sche dulmonday, and Monday. We will dialyze for 2 hours 3k bath, calcium 2.5 with ultrafilt ration approximately 1 to 2 liters. 4. Cardiomyopathy. Continue current medical management. 5. Anemia. Continue to monitor hemoglobin and hematocrit levels. Continue Epogen. 6. Mineral bone disorder, monitor calcium and phosphorus levels. 7. Access. The patient's dialysis catheter had poor flow. General surgery was consulted for possib le Perm-A-Cath exchange. The patient is also requesting PD catheter placement. 8. Gastrointestinal and deep vein thrombosis prophylaxis. Dictated By: DMITRY KELLER DO NR/NTS Conf#: [id number] DID#: [id number] CC: DMITRY KELLER DO; GRAYSON LUCIA MD;*EndCC*
[2018-09-20] MEDS: NIFEdipine (XL) 60 MG TAB PO SCH (08:26)
[2018-09-20] MEDS: ASPIRIN (EC) 81 MG TAB PO SCH (08:26)
[2018-09-20] MEDS: LOSARTAN 50 MG TAB PO SCH (08:27)
[2018-09-20] MEDS ORDERED: LOSARTAN 50 MG TAB PO SCH (09:00)
[2018-09-20] MEDS ORDERED: ASPIRIN (EC) 81 MG TAB PO SCH (09:00)
[2018-09-20] MEDS ORDERED: NIFEdipine (XL) 60 MG TAB PO SCH (09:00)
--- NOTE | 2018-09-20 10:12 | RADRPT ---
Echocardiogram Report Patient Name: JOYCELYN ESTESatient ID: [id number] : 1980 (38y 4m)Study Date: 09/20/2018 9:07:01 AM Gender: MAccession #: [id number] Tech: Guido Dumont [facility] Location: [address] Ref.Physician: DENILSON TAYLOR Height(Cm): BSA: Weight(Kg): Quality: AdequateAccount #: Procedures: Echocardiographic Report: Transthoracic echocardiogram with complete 2D, M-Mode, and doppler examination. Indications: Congestive Heart Failure, Pericardial Effusion, and Pulmonary Hypertension. Measurements: 2D/M Mode Doppler Measurement Value Normal Range Measurement Value Normal Range LVIDd 2D 6.0 [ 4.2 - 5.8 ] cm AV Peak Steffen 1.7 [ 100.0 - 170.0 ] cm/sec LVIDs 2D 5.0 [ 2.5 - 4.0 ] cm AV Peak PG 11.0 [ 2.0 - 9.0 ] mmHg LVPWd 2D 1.3 [ 0.6 - 1.0 ] cm LVOT Peak Steffen 1.3 [ 70.0 - 110.0 ] cm/sec IVSd 2D 1.5 [ 0.6 - 1.0 ] cm LVOT Peak PG 7.0 [ 2.0 - 6.0 ] mmHg AoR Diam 2D 3.1 [ 2.6 - 3.4 ] cm MV E Peak Steffen 1.4 [ 60.0 - 130.0 ] cm/sec EDV 2D 183.0 [ 62.0 - 150.0 ] ml MV A Peak Steffen 0.5 [ 100.0 - 120.0 ] cm/sec ESV 2D 116.0 [ 21.0 - 61.0 ] ml MV E/A 2.7 [ 0.8 - 1.5 ] ratio EF 2D 36.6 [ 52.0 - 72.0 ] percent MV Decel Time 173 [ 104 - 258 ] msec LA Dimen 2D 4.8 [ 3.0 - 4.0 ] cm Lat E` Steffen 0.1 [ 10.0 - 15.0 ] cm/sec Lateral E/E` 18.0 [ 1.0 - 2.0 ] ratio MV E/A 2.7 [ 0.8 - 1.5 ] ratio TR Peak Steffen 3.2 [ 100.0 - 280.0 ] cm/sec TR Peak PG 41.0 mmHg RVSP 51.0 [ 10.0 - 36.0 ] mmHg Findings: Left Ventricle: Mild concentric left ventricular hypertrophy. Mild enlargement of left ventricle cavity. Severe global left ventricular systolic dysfunction. Ejection fraction is visually estimated at 20-25 %. Tissue Doppler/Mitral Doppler indices are consistent with pseudonormalization with mildly elevated left atrial pressure (Stage II diastolic dysfunction). Right Ventricle: Moderate enlargement of right ventricle. Left Atrium: There is moderate enlargement of left atrium. Right Atrium: There is mild enlargement of right atrium. Mitral Valve: Mild mitral leaflet calcification. Mild mitral annular calcification. Moderate mitral valve regurgitation. Aortic Valve: No hemodynamically significant aortic stenosis by doppler. Aortic cusps appear mildly calcified. Tricuspid Valve: Normal appearance of the tricuspid valve. Estimated peak PA systolic pressure 51 mmHg. There is mild to moderate tricuspid regurgitation. Pulmonic Valve: Normal pulmonic valve appearance. Pericardium: Small to moderate pericardial effusion. Left pleural effusion seen. Aorta: Normal aortic root. IVC: Normal size and normal respiratory collapse consistent with normal right atrial pressure. Conclusions: There is moderate enlargement of left atrium. There is mild enlargement of right atrium. Moderate enlargement of right ventricle. Mild concentric left ventricular hypertrophy. Mild enlargement of left ventricle cavity. Severe global left ventricular systolic dysfunction. Ejection fraction is visually estimated at 20-25 %. Tissue Doppler/Mitral Doppler indices are consistent with pseudonormalization with mildly elevated left atrial pressure (Stage II diastolic dysfunction). Mild mitral leaflet calcification. Mild mitral annular calcification. Moderate mitral valve regurgitation. No hemodynamically significant aortic stenosis by doppler. Aortic cusps appear mildly calcified. Normal appearance of the tricuspid valve. Estimated peak PA systolic pressure 51 mmHg. There is mild to moderate tricuspid regurgitation. Small to moderate pericardial effusion. Left pleural effusion seen. Electronically Signed By: Denilson Taylor 2018-09-20 10:12:12 PDT
--- NOTE | 2018-09-20 10:22 | PN ---
Date/Time of Note Date/Time of Note DATE: 09/20/18 TIME: 10:19 Assessment/Plan Lines/Catheters IV Catheter Type (from [facility]): permacath [place] in Place (from [facility]): No Assessment/Plan Chief Complaint/Hosp Course 1. Renal failure currently on hemodialysis via permacath (permacath-low flow through cath: Currently refusing replacement of permacath): Status post HD -Cathflo through permacath to attempt to reestablish good flow okay> if unimproved, will likely need permacath replacement(discussed with patient and he is agreeable) -Eventual peritoneal dialysis placement once medically optimized -Limit nephrotoxic meds -Renally dose meds -HD Per renal 2. Acute on chronic secondary systolic heart failure: BNP: >175, 000 -Volume management -Cardiac optimization -Encourage compliance with diet and medications 3. Hypertension: -Medical management 4.Normocytic normochromic anemia: -Monitor and transfuse as needed 5. Leukocytopenia, thrombocytopenia: -Monitor Thank you. Patient seen and examined in collaboration with Dr. Adeel Hunter. Subjective 24 Hr Interval Summary Feels better. Dialysis performed yesterday blood pressure and shortness of breath much improved. No fevers, chills, sob, congested cough, cp, palpitat ions, cross, dizziness, nausea, vomiting, diarrhea, dysuria. Exam/Review of Systems Vital Signs Vitals Vital Signs Date Temp Pulse Resp B/P (MAP) Pulse Ox O2 O2 Flow FiO2 Time Delivery Rate 09/20/18 86 08:00 09/20/18 20 138/103 97 Room Air 06:00 (115) 09/20/18 98.5 04:00 09/19/18 21 19:05 09/19/18 3.0 12:00 Intake and Output 09/19/18 09/19/18 09/20/18 1515:00 23:00 07:00 IntakeIntake Total 26 ml 3 ml OutputOutput Total 200 ml 2900 ml BalanceBalance -174 ml -2897 ml Exam Free Text/Dictation Constitutional: alert, oriented, well developed Psych: nl mood/affect Head: normocephalic, atraumatic Eyes: nl conjunctiva, EOMI, nl lids, nl sclera ENMT: nl external ears & nose, nl lips & teeth, mucosa pink and moist Neck: supple, non-tender, jvd Respiratory: clear to auscultation, normal air movement No congested cough Cardiovascular: regular rate and rhythm, nl pulses, edema (Minimal BLE pedal) Gastrointestinal: soft, non-tender; No distended, No tender Genitourinary - Male: nl penis, nl scrotum Musculoskeletal: nl extremities to inspection, nl gait and stance Extremities: normal pulses Neurological: nl mental status, nl speech, nl strength Skin: nl turgor; No rash or lesions Lymph: nl lymph nodes Results Result Diagram: 09/20/18 0427 09/20/18 0427 JEROME VERMA NP Sep 20, 2018 10:22
[2018-09-20] MEDS: SEVELAMER CARBONATE 800 MG TABLET PO SCH (17:27)
[2018-09-20] MEDS ORDERED: HEPARIN 1000 UNITS/ML 10 ML INJ CATHETER PRN (21:30)
[2018-09-21] VITALS (7 sets, daily range): BP systolic 131–169; BP diastolic 63–112; PULSE 83–91; RESP 20–21
[2018-09-21] MEDS: ASPIRIN (EC) 81 MG TAB PO SCH (08:26)
[2018-09-21] MEDS: SEVELAMER CARBONATE 800 MG TABLET PO SCH ×2 (08:26→12:45)
[2018-09-21] MEDS: NIFEdipine (XL) 60 MG TAB PO SCH (08:27)
[2018-09-21] MEDS: LOSARTAN 50 MG TAB PO SCH (08:28)
--- NOTE | 2018-09-21 08:50 | PN ---
DATE: 09/21/2018 SUBJECTIVE: The patient was transferred from intensive care unit to telemetry. The patient had hemo dialysis yesterday with approximately 1.5 liters removed. No other acute events noted. OBJECTIVE: VITAL SIGNS: Blood pressure is 169/112, respirations 20, pulse 84, temperature 98.3. HEENT: Head is normocephalic. NECK: Supple. HEART: Regular rate. LUNGS: Show diminished breath sounds at the base. ABDOMEN: Soft, nontender to palpation without rebound or guarding. EXTREMITIES: Negative for clubbing, cyanosis, no edema. DERMATOLOGIC: No rashes. MUSCULOSKELETAL: No joint effusion. NEUROLOGIC: No change in exam. MEDICATIONS: Reviewed. LABORATORY DATA: From 09/20/18 was reviewed. MICROBIOLOGY: The patient's blood cultures have been negative to date. ASSESSMENT AND PLAN: 1. Acute hypoxemic respiratory failure, etiology is secondary to volume overload, pulmonary edema. The patient is clinically improving. Continue medical management. Continue to monitor closely. 2. Hypertensive urgency due to increased intravascular volume. Blood pressures have been improving. Continue current blood pressure regimen. Continue ultrafiltration with dialysis. 3. End-stage renal disease. The patient had 5 sessions of dialysis. Plan is for next hemodialysis tomorrow. The patient's dialysis is scheduled Monday, and Monday. We will anticipate ul trafiltration 1 to 2 liters. 4. Cardiomyopathy. Continue medical management. Follow up with cardiology. 5. Anemia. Continue to monitor hemoglobin and hematocrit levels. We will give Epogen. 6. Mineral bone disorder. Monitor calcium and phosphorus levels. Continue phosphate binders. 7. Access. The patient's Perm-A-Cath was noted to have poor flow, may require exchange. Additional ly, general surgery was consulted for possible PD catheter placement. 8. Gastrointestinal and deep vein thrombosis prophylaxis. Dictated By: DMITRY KELLER DO NR/NTS Conf#: [id number] DID#: [id number] CC: DMITRY KELLER DO; GRAYSON LUCIA MD;*EndCC*
--- NOTE | 2018-09-21 12:12 | CONS ---
Consult Date/Type/Reason Admit Date/Time Sep 19, 2018 at 08:54 Initial Consult Date 09/19/18 Type of Consultation: CV Requesting Provider: DMITRY KELLER DO Date/Time of Note DATE: 09/21/18 TIME: 12:11 Subjective Interventional cardiology follow-up progress note/critical care Subjective: Case discussed with the staff. Telemetry was reviewed. Patient has remained in normal sinus rhythm. Patient is sitting in his breathing much better and wants to go home today Currently patient is off BiPAP on tele No chest pain or pressure. Breathing is much better now. Objective: General: Young man with no respiratory distress at the moment HEENT: NC/AT. pupils are equal. round. NECK: . no stridor. CV: Tolerating medium. systolic murmur; no gallop or rubs. PULM: no wheezing mild rhonchi. GI: SOFT, NT, ND, no rebound or guarding Extremity: trace B/L LE edema. no clubbing. neuro: awake and alert, OX3. Psych: calm rectal: deferred : normal EKG shows normal sinus rhythm/sinus tachycardia. ST-T wave abnormalities Chest x-ray was personally reviewed which showed congestive heart failure Review of the old chart shows an echocardiogram done July 2018 has shown: Mild concentric left ventricular hypertrophy. Moderate enlargement of left ventricle cavity. Severe global left ventricular systolic dysfunction. Ejection fraction is visually estimated at 25 %. Tissue Doppler/Mitral Doppler indices are consistent with restrictive physiology with markedly elevated left atrial pressure (Stage III-IV diastolic dysfunction). There is moderate enlargement of left atrium. Mild mitral annular calcification. Mild to moderate mitral valve regurgitation. Trileaflet aortic valve. Trace to mild aortic valve regurgitation. Normal appearance of the tricuspid valve. Estimated peak PA systolic pressure 55 mmHg. There is moderate tricuspid regurgitation. Normal size and no respiratory collapse consistent with elevated right atrial pressure. Small pericardial effusion. Pleural effusion seen. Objective Vitals Vital Signs Date Temp Pulse Resp B/P (MAP) Pulse Ox O2 O2 Flow FiO2 Time Delivery Rate 09/21/18 83 12:06 09/21/18 98.2 20 142/100 96 Room Air 11:35 (114) 09/19/18 21 19:05 09/19/18 3.0 12:00 Intake and Output 09/20/18 09/20/18 09/21/18 1515:00 23:00 07:00 IntakeIntake Total 300 ml OutputOutput Total 3000 ml BalanceBalance -2700 ml Results/Medications Result Diagram: 09/20/1842609/20/18426 Home Meds Active Scripts Sevelamer Carbonate (Sevelamer Carbonate) 0.8 Gm Powd.pack, 0.8 GM PO WITH MEALS for 90 Days Prov:SASKIA LUCIA DO 07/14/18 Reported Medications Losartan Potassium* (Losartan Potassium*) 100 Mg Tablet, 100 MG PO DAILY for 30 Days, #30 take 1 tablet by mouth once daily 08/17/18 Aspirin* (Aspirin* EC) 81 Mg Tablet.dr, 81 MG PO DAILY for 30 Days, #30 take 1 tablet by mouth once daily 08/17/18 Nifedipine (Afeditab CR) 60 Mg Tablet.sa, 60 MG PO DAILY for 30 Days, #30 08/17/18 Carvedilol* (Coreg*) 25 Mg Tablet, 25 MG PO BID, #60 TAB 07/26/18 Medications Current Medications Hydralazine HCl (Apresoline) 50 mg Q6 PRN PO htn Last administered on 09/19/18at 13:15; Admin Dose 50 MG; Start 09/19/18 at 10:00 Aspirin (Halfprin) 81 mg DAILY PO Last administered on 09/21/18at 08:26; Admin Dose 81 MG; Start 09/19/18 at 11:53 Carvedilol (Coreg) 25 mg BID PO Last administered on 09/21/18at 08:27; Admin Dose 25 MG; Start 09/19/18 at 21:00 Losartan Potassium (Cozaar) 100 mg DAILY PO Last administered on 09/21/18at 08: 28; Admin Dose 100 MG; Start 09/19/18 at 11:53 Nifedipine (Procardia Xl) 60 mg DAILY PO Last administered on 09/21/18at 08:27; Admin Dose 60 MG; Start 09/19/18 at 11:54 Acetaminophen (Tylenol Tab) 650 mg Q4H PRN PO MILD PAIN(1-3)OR ELEVATED TEMP; Start 09/19/18 at 13:30 Hydralazine HCl (Apresoline) 10 mg Q6H PRN IV SBP GREATER THAN 160; Start 09/19/18 at 15:30 Alteplase, Recombinant (Cathflo (Activase)) 2 mg MAY REPEAT X1 PRN CATHETER IF CATHETER REMAINS OCCULUDED Last administered on 09/19/18 18:34; Admin Dose 2 MG; Start 09/19/18 at 16:00 Clonidine (Catapres) 0.1 mg Q6H PRN PO SBP > 160 Last administered on 09/19/18 16:24; Admin Dose 0.1 MG; Start 09/19/18 at 16:30 Sevelamer Carbonate (Renvela) 800 mg WITH MEALS PO Last administered on 09/21/18 08:26; Admin Dose 800 MG; Start 09/20/18 at 17:35 Heparin Sodium (Porcine) (Heparin (1000 Units/ml)) 3,300 unit PRN PRN CATHETER After Dialysis Last administered on 09/20/18 21:43; Admin Dose 3,300 UNIT; Start 09/20/18 at 21:30 Assessment/Plan Hospital Course (Demo Recall) Congestive heart failure: Acute on chronic secondary systolic heart failure and also noncompliant with the diet and medication Renal failure on dialysis Severe cardiomyopathy hx of Abnormal troponin with no chest pain and stress test showing no evidence of reversible ischemia History of poor compliance with medications Anemia Pericardial effusion Pulmonary hypertension Hypertension hypertensive urgency Recommendations Importance of compliant with medication diet and hemodialysis explained to the patient. Lexiscan stress test done 07/25/2018 shows no significant reversible ischemia consistent with his severe nonischemic cardiomyopathy Continue with the Coreg and losartan. We will increase Coreg and stop Procardia given his cardiomyopathy HD as per renal. Plan for hemodialysis again today Oxygen and BIPAP prn Thank you for his referral will continue to follow along with you DENILSON SCOTT MD [facility] DENILSON SCOTT MD Sep 21, 2018 12:12
--- NOTE | 2018-09-21 12:46 | PN ---
Date/Time of Note Date/Time of Note DATE: 09/21/18 TIME: 12:42 Assessment/Plan Lines/Catheters IV Catheter Type (from [facility]): Central Line [place] in Place (from [facility]): No Assessment/Plan Chief Complaint/Hosp Course 1. Renal failure currently on hemodialysis via permacath (permacath-low flow through cath: Currently refusing replacement of permacath): Status post HD -Cathflo through permacath to attempt to reestablish good flow okay > flow improved and therefore patient does not want revision -Eventual peritoneal dialysis placement in outpt setting since patient wants to be discharged today. -Limit nephrotoxic meds -Renally dose meds -HD Per renal 2. Acute on chronic secondary systolic heart failure: BNP: >175, 000; EF 20% (global ischemia) -Volume management -Cardiac optimization -Encourage compliance with diet and medications 3. Hypertension: -Medical management 4.Normocytic normochromic anemia: -Monitor and transfuse as needed 5. Leukocytopenia, thrombocytopenia: -Monitor Thank you Subjective 24 Hr Interval Summary Feels better. HD without issues thru Permacath and therefore he does not want revision. No fevers, chills, sob, congested cough, cp, palpitations, cross, dizziness, nausea, vomiting, diarrhea, dysuria. Wants to go home today. Exam/Review of Systems Vital Signs Vitals Vital Signs Date Temp Pulse Resp B/P (MAP) Pulse Ox O2 O2 Flow FiO2 Time Delivery Rate 09/21/18 83 12:06 09/21/18 98.2 20 142/100 96 Room Air 11:35 (114) 09/19/18 21 19:05 09/19/18 3.0 12:00 Intake and Output 09/20/18 09/20/18 09/21/18 1515:00 23:00 07:00 IntakeIntake Total 300 ml OutputOutput Total 3000 ml BalanceBalance -2700 ml Exam Free Text/Dictation Constitutional: alert, oriented, well developed Psych: nl mood/affect Head: normocephalic, atraumatic Eyes: nl conjunctiva, EOMI, nl lids, nl sclera ENMT: nl external ears & nose, nl lips & teeth, mucosa pink and moist Neck: supple, non-tender, jvd. Right permacath. Respiratory: clear to auscultation, normal air movement No congested cough Cardiovascular: regular rate and rhythm, nl pulses, edema (Minimal BLE pedal) Gastrointestinal: soft, non-tender; No distended, No tender Genitourinary - Male: nl penis, nl scrotum Musculoskeletal: nl extremities to inspection, nl gait and stance Extremities: normal pulses Neurological: nl mental status, nl speech, nl strength Skin: nl turgor; No rash or lesions Lymph: nl lymph nodes Results Result Diagram: 09/20/18 0427 09/20/18 0427 GRAYSON LUCIA MD Sep 21, 2018 12:46
--- NOTE | 2018-10-05 21:24 | DS ---
DATE OF ADMISSION: 09/19/2018 DATE OF DISCHARGE: 09/21/2018 HOSPITAL COURSE: This is a 38-year-old male with a past medical history of end-stage renal disease, history of hypertension, history of cardiomyopathy, history of mineral bone disorder, anemia who pres ented to [facility] [place] with shortness of breath. The patient upon admission was noted to have pulmonary edema. The patient states that he was having increased shortness of breath over t he last several days despite undergoing hemodialysis, the patient's shortness of breath progressively worsened. Upon arrival as stated above, the patient had pulmonary edema. He was subsequently admit avery to the intensive care unit as patient also was in hypertensive urgency. The patient was treated with aggressive hemodialysis ultrafiltration and adjustment of his blood pressure medication. The pa tient's hypertensive urgency improved. The patient hypoxic respiratory failure improved with aggress destinee hemodialysis. The patient also was evaluated by general surgeon, Dr. Hunter for possible placem ent of a peritoneal dialysis catheter. The patient was a candidate for peritoneal dialysis and will follow up with Dr. Hunter in the outpatient setting. The patient's other medical problems including cardiomyopathy, anemia, mineral bone disorder were stable during the hospital course. Currently, at this time, the patient will be discharged with a followup with his primary care physician, his prima qa analyst and Dr. Adeel Hunter for possible PD catheter placement. FINAL DIAGNOSES: 1. Acute hypoxic respiratory failure secondary to volume overload, resolved. 2. Hypertensive urgency, resolved. 3. End-stage renal disease. 4. Cardiomyopathy. 5. Anemia. 6. Mineral bone disorder. At the time of discharge, the patient is stable, in no acute distress. FINAL MEDICATIONS: See reconciliation list. Please note, I spent over 30 minutes of time preparing the patient's discharge. Dictated By: DMITRY VU/ZAKIA Conf#: [id number] DID#: [id number]
== END 2018-09-21 14:30 | disposition home or self-care (01) | DRG 291 ==
LOC: E/R 07:15 → ICU 08:54 → EDBEDREQSVC 09:42 → TEL 09-20 23:36 → 6WM 09-20 23:46
PROVIDERS: ADMIT Internal Medicine; ATTEND Internal Medicine
PROC: 5A1D70Z Performance of Urinary Filtration, Intermittent, Less than 6 Hours Per Day (ICD-10-PCS; principal; 2018-09-19)
DX: I13.0 Hypertensive heart and chronic kidney disease with heart failure and stage 1 through stage 4 chronic kidney disease, or unspecified chronic kidney disease (principal); J96.01 Acute respiratory failure with hypoxia; I50.23 Acute on chronic systolic (congestive) heart failure; N18.6 End stage renal disease; E83.9 Disorder of mineral metabolism, unspecified; I42.9 Cardiomyopathy, unspecified; D69.6 Thrombocytopenia, unspecified; I27.20 Pulmonary hypertension, unspecified; E87.70 Fluid overload, unspecified; I16.0 Hypertensive urgency; Z99.2 Dependence on renal dialysis; D64.9 Anemia, unspecified; D72.819 Decreased white blood cell count, unspecified; Z91.11 Patient's noncompliance with dietary regimen; Z91.14 Patient's other noncompliance with medication regimen
CPT/HCPCS: 71045; 80048; 80053; 83605; 83735; 83880; 84100; 84484; 85025; 85610; 86706; 87081; 87340; 90935; 93005; 93306; 94660; 96374; J1644

== ENCOUNTER 2018-10-17 23:25 | Inpatient (IN) | payer OTHER ==
[~2018-10-17] VITALS: Ht 175.3 cm; Wt 83.3 kg
[2018-10-18] VITALS (23 sets, daily range): BP systolic 150–201; BP diastolic 100–137; PULSE 77–117; RESP 16–22; Ht 175.3 cm; Wt 83.3 kg
[2018-10-18] MEDS ORDERED: hydrALAzine 20 MG INJ IV ONE (00:30)
[2018-10-18] MEDS ORDERED: ONDANSETRON 4 MG INJ IV PRN (04:00)
--- NOTE | 2018-10-18 08:13 | HP ---
DATE OF ADMISSION: 10/18/2018 CHIEF COMPLAINT: Shortness of breath. HISTORY OF PRESENT ILLNESS: This is a 38-year-old male well known to me with a past medical history of end-stage renal disease on dialysis Monday, , Monday with access of Perm-A-Cath, histor y of cardiomyopathy with ejection fraction of 25%, history of mineral bone disorder, anemia, history of hypertension who presents to the [facility] after missing hemodialysis. The pat blayne states that he was away over the weekend and missed his dialysis session on Monday. As a resul t, over the past 24-48 hours, the patient noticed increased shortness of breath. The patient was adm itted to the emergency room. Upon arrival, the patient had a chest x-ray, which showed findings of c ongestive heart failure with small bilateral effusions. The patient also was noted to be hypertensiv e. In the emergency room, the patient was given IV hydralazine and admitted to telemetry for evaluat ion. Upon my evaluation of the patient at this time, he is in current respiratory distress. The patient d enies any chest pain, denies any hemoptysis, hematemesis or hematochezia. PAST MEDICAL HISTORY: History of end-stage renal disease, history of hypertension, history of anemia , history of mineral bone disorder. PAST SURGICAL HISTORY: Status post Perm-A-Cath placement, history of umbilical hernia surgery. FAMILY HISTORY: No family history of kidney disease. SOCIAL HISTORY: He does not actively drink, smoke or do drugs. MEDICATIONS: The patient's medications have been reviewed. REVIEW OF SYSTEMS: A 14-point review of systems was conducted. Pertinent positives stated in HPI, o therwise negative. PHYSICAL EXAMINATION: VITAL SIGNS: Blood pressure 188/96, respirations 20, pulse 76, temperature 98.6. HEENT: Head is normocephalic. NECK: Supple. HEART: Regular rate. LUNGS: Show diminished breath sounds at the base. ABDOMEN: Soft, nontender to palpation without rebound or guarding. EXTREMITIES: Negative for clubbing, cyanosis. Positive edema. DERMATOLOGIC: No rashes. MUSCULOSKELETAL: No joint effusion. NEUROLOGIC: No change in exam. LABORATORY DATA: Reviewed. IMAGING STUDIES: Reviewed. ASSESSMENT AND PLAN: 1. Acute hypoxemic respiratory failure. Etiology is secondary to volume overload, pulmonary edema. Plan is for the patient to undergo urgent hemodialysis with goal of ultrafiltration approximately 2 to 3 liters. We will continue supplemental oxygen. Monitor closely. 2. End-stage renal disease. The patient is on dialysis Monday, , Monday, access is Perm- A-Cath. Last hemodialysis was Monday. Plan is for dialysis today. We will dialyze for 3.5 hours 3k bath, calcium 2.5, ultrafiltrate approximately 2 to 3 liters. 3. Hypertensive urgency in part due to increased intravascular volume. Continue current blood press ure regimen. Continue ultrafiltration with dialysis. 4. Cardiomyopathy. Continue medical management. Continue current blood pressure regimen. 5. Anemia. Monitor hemoglobin and hematocrit levels. We will give Epogen as needed. 6. Mineral bone disorder. Continue to monitor calcium and phosphorus levels. Continue phosphate bi nders. 7. Gastrointestinal and deep vein thrombosis prophylaxis. Please note I spent an additional 30 minutes of [id number] time with the patient discussing advance d directives and code status. The patient is FULL CODE. Dictated By: DMITRY KELLER DO NR/NTS Conf#: [id number] DID#: [id number] CC: SASKIA LUCIA DO;*EndCC*
[2018-10-18] MEDS: SEVELAMER CARBONATE 0.8 GM PKT PO SCH ×3 (08:56→18:11)
[2018-10-18] MEDS: ASPIRIN (EC) 81 MG TAB PO SCH (08:58)
[2018-10-18] MEDS: NIFEdipine (XL) 60 MG TAB PO SCH (09:00)
[2018-10-18] MEDS: LOSARTAN 50 MG TAB PO SCH (09:03)
[2018-10-18] MEDS ORDERED: HEPARIN 1000 UNITS/ML 10 ML INJ CATHETER ONE (12:00)
[2018-10-19] VITALS (20 sets, daily range): BP systolic 159–185; BP diastolic 100–131; PULSE 68–94; RESP 18–22
--- NOTE | 2018-10-19 08:17 | PN ---
DATE: 10/19/2018 SUBJECTIVE: The patient is stable. No events overnight. The patient had hemodialysis yesterday, to lerated well. Plan is for hemodialysis again today. OBJECTIVE: VITAL SIGNS: Blood pressure is 118/112, pulse 85, temperature 98.1. HEENT: Head is normocephalic. NECK: Supple. HEART: Regular rate. LUNGS: Show diminished breath sounds at the base. ABDOMEN: Soft, nontender to palpation without rebound or guarding. EXTREMITIES: Negative for clubbing, cyanosis, no edema. DERMATOLOGIC: No rashes. MUSCULOSKELETAL: No joint effusion. NEUROLOGIC: No change in exam. MEDICATIONS: Reviewed. LABORATORY DATA: Reviewed. ASSESSMENT AND PLAN: 1. Acute hypoxemic respiratory failure. Etiology is secondary to volume overload. The patient is i mproving. Continue ultrafiltration with hemodialysis. 2. End-stage renal disease. Plan is for dialysis again today. We will dialyze for 3 hours 2k bath, calcium 2.5, ultrafiltration goal of 2 to 3 liters. 3. Hypertensive urgency, etiology is in part due to increased intravascular volume. Continue curren t blood pressure regimen. Continue ultrafiltration with dialysis. 4. Cardiomyopathy. Continue medical management. Continue current blood pressure regimen. 5. Anemia. Monitor hemoglobin and hematocrit levels. Continue Epogen. 6. Mineral bone disorder, monitor calcium and phosphorus levels. 7. Gastrointestinal and deep vein thrombosis prophylaxis. Dictated By: DMITRY KELLER DO NR/NTS Conf#: [id number] DID#: [id number] CC: SASKIA LUCIA DO;*EndCC*
[2018-10-19] MEDS ORDERED: HEPARIN 1000 UNITS/ML 10 ML INJ CATHETER ONE (10:30)
[2018-10-19] MEDS: ASPIRIN (EC) 81 MG TAB PO SCH (10:32)
[2018-10-19] MEDS: SEVELAMER CARBONATE 0.8 GM PKT PO SCH ×2 (10:32→11:50)
[2018-10-19] MEDS: NIFEdipine (XL) 60 MG TAB PO SCH (10:33)
[2018-10-19] MEDS: LOSARTAN 50 MG TAB PO SCH (10:33)
--- NOTE | 2018-10-21 11:17 | RADRPT ---
Vent Rate: 110 bpm RR Interval: 0 msec CA Interval: 150 msec QRS Duration: 98 msec QT Interval: 360 msec QTC Interval: 487 msec P-R-T [place]: 69 - 39 - 110 degrees Sinus tachycardia Possible Left atrial enlargement Cannot rule out Inferior infarct , age undetermined Possible Anterior infarct , age undetermined Abnormal ECG Electronically Signed By: [facility]
--- NOTE | 2018-11-08 18:22 | DS ---
DATE OF ADMISSION: 10/18/2018 DATE OF DISCHARGE: 10/19/2018 HOSPITAL COURSE: This is a 38-year-old male well known to me with past medical history of end-stage renal disease on dialysis Monday, and Monday, access is PermCath, history of cardiomyopat hy with ejection fraction of 25%, history of mineral bone disorder, anemia, hypertension who was pres ented to [facility] after missing hemodialysis. The patient on admission was noted to be in acute respiratory failure secondary to pulmonary edema. The patient was admitted and had a ggressive dialysis on 2 successive days with clinical improvement. The patient was also noted to be hypertensive with improvement in blood pressure after hemodialysis. Currently, at this time, the pat ient will be discharged home and will follow up with his primary care physician and will continue out patient hemodialysis. FINAL DIAGNOSES: 1. Acute hypoxemic respiratory failure. 2. Pulmonary edema. 3. End-stage renal disease. 4. Hypertension. 5. Cardiomyopathy. 6. Anemia. 7. Mineral bone disorder. 8. Gastrointestinal and deep vein thrombosis prophylaxis. Dictated By: DMITRY KELLER DO NR/NTS Conf#: [id number] DID#: [id number] CC: SASKIA LUCIA DO;*EndCC*
== END 2018-10-19 15:10 | disposition home or self-care (01) | DRG 189 ==
LOC: E/R 23:25 → TEL 10-18 01:45
PROVIDERS: ADMIT Internal Medicine Nephrology; ATTEND Internal Medicine Nephrology
PROC: 5A1D70Z Performance of Urinary Filtration, Intermittent, Less than 6 Hours Per Day (ICD-10-PCS; principal; 2018-10-18)
DX: J81.0 Acute pulmonary edema (principal); J96.01 Acute respiratory failure with hypoxia; N18.6 End stage renal disease; I12.0 Hypertensive chronic kidney disease with stage 5 chronic kidney disease or end stage renal disease; I42.9 Cardiomyopathy, unspecified; E87.70 Fluid overload, unspecified; I16.0 Hypertensive urgency; D63.1 Anemia in chronic kidney disease; Z99.2 Dependence on renal dialysis; Z91.15 Patient's noncompliance with renal dialysis
CPT/HCPCS: 71045; 80048; 80053; 83880; 84484; 85025; 87340; 90935; 93005; J0360; J1644; J2405

== ENCOUNTER 2018-12-10 08:05 | Day surgery (SDC) | payer OTHER ==
[2018-12-10] VITALS (14 sets, daily range): BP systolic 150–171; BP diastolic 90–124; PULSE 74–88; RESP 14–25; Ht 175.3 cm; Wt 83.5 kg
[~2018-12-10] VITALS: Ht 175.3 cm; Wt 83.5 kg
[2018-12-10] MEDS ORDERED: THROMBIN 5000 UNIT VIAL ONE (11:58)
[2018-12-10] MEDS ORDERED: GELATIN SIZE 100 SPONGE ONE (11:58)
[2018-12-10] MEDS ORDERED: HEPARIN 1000 UNITS/ML 10 ML INJ ONE (11:58)
[2018-12-10] MEDS ORDERED: LIDOCAINE 1% (MPF) 30 ML INJ ONE (11:58)
[2018-12-10] MEDS ORDERED: HEPARIN 1000 UNITS/ML 10 ML INJ IRR ONE (12:15)
--- NOTE | 2018-12-10 12:21 | PREAC ---
Date/Time of Note Date/Time of Note DATE: 12/10/18 TIME: 12:19 Anesthesia Eval and Record Evaluation Time Pre-Procedure Interview DATE: 12/10/18 TIME: 12:19 Age 38 Sex male NPO: 8 hrs Preoperative diagnosis esrd Planned procedure left av fistula Past Medical History Past Medical History: Includes Cardio: HTN Renal: ESRD on dialysis Heme: Anemia Surgery & Anesthesia Issues No known issue Meds Anticoagulation: No Beta Shahida within 24 hr: Yes Reported Medications Losartan Potassium* (Losartan Potassium*) 100 Mg Tablet, 100 MG PO DAILY for 30 Days, #30 take 1 tablet by mouth once daily 08/17/18 Carvedilol* (Coreg*) 25 Mg Tablet, 25 MG PO BID, #60 TAB 07/26/18 Discontinued Reported Medications Aspirin* (Aspirin* EC) 81 Mg Tablet.dr, 81 MG PO DAILY for 30 Days, #30 take 1 tablet by mouth once daily 08/17/18 Nifedipine (Afeditab CR) 60 Mg Tablet.sa, 60 MG PO DAILY for 30 Days, #30 08/17/18 Discontinued Scripts Sevelamer Carbonate (Sevelamer Carbonate) 0.8 Gm Powd.pack, 0.8 GM PO WITH MEALS for 90 Days Prov:SASKIA LUCIA DO 07/14/18 Meds reviewed: Yes Allergies Coded Allergies: No Known Allergy (Unverified , 12/10/18) Allergies Reviewed: Yes Labs/Studies Labs Reviewed: Reviewed by anesthesiologist Result Diagram: 12/10/18 0900 12/10/18 0900 Laboratory Tests 12/10/18 09:00 test: N/A Studies: ECG, CXR Pre-procedure Exam Last vitals Vital Signs Date Temp Pulse Resp B/P (MAP) Pulse Ox O2 O2 Flow FiO2 Time Delivery Rate 12/10/18 97.0 88 16 165/118 97 Room Air 09:16 (134) Airway: Adequate mouth opening, Adequate thyromental dist Mallampati: Mallampati II Teeth: Normal Lung: Normal Heart: Normal ASA Physical Status ASA physical status: 3 Emergency: None Planned Anesthetic General/MAC: LMA Planned Pain Management Parenteral pain med Pre-operative Attestations Prior to commencing anesthesia and surgery, the patient was re-evaluated, there was verification of: *The patient's identity *The results of appropriate recent lab work and preoperative vital signs *The above evaluation not changing prior to induction *Anesthetic plan, risk benefits, alternative and complications discussed with patient/family; questions answered; patient/family understands, accepts and wishes to proceed. KEITH RAMIREZ Dec 10, 2018 12:21
[2018-12-10] MEDS ORDERED: PROPOFOL 20 ML ONE (12:29)
[2018-12-10] MEDS ORDERED: ROCURONIUM 50 MG INJ ONE (12:29)
[2018-12-10] MEDS ORDERED: FENTAnyl 50 MCG/ML VIAL ONE (12:31)
[2018-12-10] MEDS ORDERED: BUPIVACAINE 0.5% (SDV) 30 ML INJ ONE (13:18)
[2018-12-10] MEDS ORDERED: LIDOCAINE 2% (SDV) 5 ML INJ ONE (13:19)
[2018-12-10] MEDS ORDERED: CEFAZOLIN 1 GM INJ ONE (13:19)
[2018-12-10] MEDS ORDERED: DEXAMETHASONE 4 MG/ML 5 ML INJ ONE (14:15)
[2018-12-10] MEDS ORDERED: ONDANSETRON 4 MG INJ ONE (14:16)
[2018-12-10] MEDS ORDERED: SUGAMMADEX SODIUM 200 MG/2 ML VIAL IV ONE (14:17)
--- NOTE | 2018-12-10 14:20 | SIPON ---
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
[2018-12-10] MEDS ORDERED: HYDROCODONE/APAP (5/325) TAB PO PRN ×2 (14:30)
[2018-12-10] MEDS ORDERED: morphine 10 MG INJ IM PRN (14:30)
[2018-12-10] MEDS ORDERED: ONDANSETRON 4 MG INJ IV PRN ×2 (14:30→15:00)
--- NOTE | 2018-12-10 14:34 | PAC ---
Date/Time of Note Date/Time of Note DATE: 12/10/18 TIME: 14:33 Post-Anesthesia Notes Post-Anesthesia Note Last documented vital signs Vital Signs Date Temp Pulse Resp B/P (MAP) Pulse Ox O2 O2 Flow FiO2 Time Delivery Rate 12/10/18 97.0 88 16 165/118 97 Room Air 1433 (134) Activity: WNL Respiratory function: WNL Cardiovascular function: WNL Mental status: Baseline Pain reasonably controlled: Yes Hydration appropriate: Yes Nausea/Vomiting absent: Yes KEITH RAMIREZ Dec 10, 2018 14:34
[2018-12-10] MEDS: FENTAnyl 50 MCG/ML VIAL IV PRN ×2 (14:58→15:07)
[2018-12-10] MEDS ORDERED: FENTAnyl 50 MCG/ML VIAL IV PRN ×2 (15:00)
[2018-12-10] MEDS ORDERED: HYDROmorphONE 1 MG/5 ML IV SYRINGE IV PRN ×3 (15:00)
[2018-12-10] MEDS ORDERED: OXYCODONE/ACETAMINOPHEN (5/325) TAB PO PRN ×2 (15:00)
[2018-12-10] MEDS ORDERED: ALBUTEROL 0.083% (NEB) 2.5 MG/3 ML AMP HHN PRN (15:00)
[2018-12-10] MEDS ORDERED: MEPERIDINE 25 MG INJ IV PRN (15:00)
[2018-12-10] MEDS ORDERED: LABETALOL HCL 20MG INJ IV PRN (15:00)
[2018-12-10] MEDS ORDERED: hydrALAzine 20 MG INJ IV PRN (15:00)
[2018-12-10] MEDS ORDERED: DIPHENHYDRAMINE 50 MG INJ IV PRN (15:00)
--- NOTE | 2018-12-11 07:49 | OPR ---
DATE OF OPERATION: 12/10/2018 PREOPERATIVE DIAGNOSIS: End-stage renal disease. POSTOPERATIVE DIAGNOSIS: End-stage renal disease. PROCEDURE: Left upper extremity arteriovenous fistula creation. SURGEON: Mamadou Escamilla MD ANESTHESIA: General. ANESTHESIOLOGIST: Dr. Dumont. ESTIMATED BLOOD LOSS: Minimal. SPECIMENS: None. COMPLICATIONS: None. PREOPERATIVE INDICATIONS: This is a 38-year-old gentleman with end-stage renal disease on dialysis via a right Perm-A-Cath currently, now presents for permanent AV access. The indications, risks and benefits of the procedure were discussed with the patient who understood and agreed to proceed. PROCEDURE: The patient was properly identified, brought to the operating room and placed in supine position. The patient was induced general anesthesia without any difficulty. The patient received preoperative antibiotics. The patient's left upper extremity was ultrasounded prior to prepping. This demonstrated adequate diameter for the cephalic vein throughout, along with the basilic vein. Plan was to use the cephalic vein in the forearm; however, it did track more posteriorly, but this should be amenable to a full anastomosis with adequate length in the distal forearm. Therefore, the left lower extremity was prepped after the vein and artery were marked. A longitudinal incision was created in between the marked between the radial artery and cephalic vein. Subcutaneous tissues were deepened through using electrocautery. The cephalic vein was identified circumferentially and dissected free and transected distally prior to bifurcating area. The vein was flushed and distended well with heparinized saline. This was controlled. The radial artery was then isolated by incising the fascia and dissecting off the radial vein. The patient was heparinized with 3000 units of IV heparin. The radial artery was then controlled with bulldog clamps. An 11-blade scalpel was used to create the arteriotomy and this was extended using Gaming scissors. The cephalic vein was then tailored to the arteriotomy. An end-to-side anastomosis was then created using a 6-0 Prolene suture in a continuous fashion. Prior to completion of the suture line, the anastomosis was back-bled and forward flushed and flushed with heparinized saline. The suture line was then completed. With release of the clamps, there was appearance of a good thrill at the fistula. There was still a palpable radial pulse distally. Doppler evaluation demonstrated continuous flow throughout the cephalic vein in the proximal forearm. Next, hemostasis was obtained using thrombin-soaked Gelfoam. After hemostasis was assured, the subcutaneous tissues were closed using 3-0 Vicryl sutures. The skin was closed using 4-0 Monocryl. Steri-Strips and dry dressings were then placed. The patient was then awoken from his anesthesia without any difficulty and was transferred to recovery in good condition. Dictated By: MAMADOU GALVAN/ZAKIA Conf#: [id number] DID#: [id number] MTDD
--- NOTE | 2018-12-12 16:35 | RADRPT ---
Vent Rate: 81 bpm RR Interval: 740 msec OK Interval: 168 msec QRS Duration: 91 msec QT Interval: 409 msec QTC Interval: 475 msec P-R-T [place]: 73 - 50 - [id number] degrees Sinus rhythm...normal P axis, V-rate 50- 99 Left atrial enlargement...P, P'>60mS, <-0.15mV V1 Left ventricular hypertrophy...multiple voltage criteria Electronically Signed By: Lauri Gomez
== END 2018-12-10 17:31 | disposition home or self-care (01) ==
LOC: SDS 08:05
PROVIDERS: ATTEND Surgery
DX: I12.0 Hypertensive chronic kidney disease with stage 5 chronic kidney disease or end stage renal disease (principal); N18.6 End stage renal disease; Z79.82 Long term (current) use of aspirin
CPT/HCPCS: 36821; 71045; 80053; 85025; 85610; 85730; 93005; J0360; J0690; J1100; J1644; J2405; J3010; Z7512; Z7610; C1725

== ENCOUNTER 2018-12-19 14:59 | Inpatient (IN) | payer OTHER ==
[~2018-12-19] VITALS: Ht 177.8 cm; Wt 84.6 kg
[~2018-12-19 14:59] MED LIST changes: +IBUP-1544 PO; +NEPH PO; -NIFE60TA18 PO; -SEVE0.8P2 PO; +SEVE800T7 PO
[2018-12-19] MEDS ORDERED: CEFEPIME 2GM/50 ML (PMX) 50 ML IVPB STA (15:14)
[2018-12-19] MEDS ORDERED: VANCOMYCIN 1 GM (PMX) 250 ML IVPB ONE (15:30)
--- NOTE | 2018-12-19 17:44 | ERD ---
ER Documentation Chief Complaint Chief Complaint sob, last dialysis sat HPI 38-year-old male presents the emergency department complaining of shortness of breath. Patient states that he missed his dialysis yesterday. Over the last 24 hours has been increasingly short of breath. He denies any chest pain. He states he may have had a low-grade fever. He states he has a cough without production of sputum. He has no other complaints at this time. ROS All systems reviewed and are negative except as per history of present illness. Medications Home Meds Reported Medications Aspirin* (Aspirin* EC) 81 Mg Tablet.dr, 81 MG PO NEEDED, TAB 12/19/18 Losartan Potassium* (Losartan Potassium*) 100 Mg Tablet, 100 MG PO DAILY for 30 Days, #30 take 1 tablet by mouth once daily 08/17/18 Carvedilol* (Coreg*) 25 Mg Tablet, 25 MG PO BID, #60 TAB 07/26/18 Allergies Allergies: Coded Allergies: No Known Allergy (Unverified , 12/19/18) PMhx/Soc History of Surgery: Yes (hernia, appendectomy) Anesthesia Reaction: No Hx Neurological Disorder: No Hx Respiratory Disorders: No Hx Cardiac Disorders: Yes (htn) Hx Psychiatric Problems: No Hx Miscellaneous Medical Probl: Yes (ESRD) Hx Alcohol Use: No Hx Substance Use: No Hx Tobacco Use: No Smoking Status: Never smoker FmHx Noncontributory for chief complaint Physical Exam Vitals Vital Signs Date Temp Pulse Resp B/P (MAP) Pulse Ox O2 O2 Flow FiO2 Time Delivery Rate 12/19/18 117 22 159/136 97 Room Air 15:30 (144) 12/19/18 Nasal 2 15:26 Cannula 12/19/18 100.8 118 24 179/126 95 15:05 (143) Physical Exam GENERAL: Well-developed, well-nourished in mild to moderate respiratory distress HEENT: Pupils equal, round, and reactive to light. EOMI. There is no scleral icterus. NECK: C-spine is soft and supple, there is no meningismus. There is no cervical lymphadenopathy. LUNGS: Crackles bilaterally. Mildly tachypneic. No retractions HEART: Regular rate and rhythm, no murmurs, clicks, rubs or gallops. ABDOMEN: Soft, non-tender, non-distended. There are bowel sounds in all four quadrants. No rebound or guarding. EXTREMITIES: There is no peripheral cyanosis or edema. No focal swelling or erythema. NEURO: The patient moves all four extremities with 5/5 strength. Cranial nerves II - XII are intact. Normal gait. Alert and oriented SKIN: There is no apparent rash or petechiae. HEME/LYMPHATIC: There is no evidence of excessive bruising or lymphedema. PSYCHIATRIC: The patient does not appear anxious or depressed. Result Diagram: 12/19/18 1524 12/19/18 1524 Results 24 hrs Laboratory Tests Test 12/19/18 15:20 12/19/18 15:24 POC Venous Lactate 2.2 mmol/L White Blood Count 12.4 10^3/ul Red Blood Count 3.25 10^6/ul Hemoglobin 10.2 g/dl Hematocrit 31.8 % Mean Corpuscular Volume 97.8 fl Mean Corpuscular Hemoglobin 31.4 pg Mean Corpuscular Hemoglobin Concent 32.1 g/dl Red Cell Distribution Width 17.1 % Platelet Count 173 10^3/UL Mean Platelet Volume 10.9 fl Immature Granulocytes % 0.600 % Neutrophils % 86.1 % Lymphocytes % 6.1 % Monocytes % 6.9 % Eosinophils % 0.1 % Basophils % 0.2 % Nucleated Red Blood Cells % 0.0 /100WBC Immature Granulocytes # 0.070 10^3/ul Neutrophils # 10.7 10^3/ul Lymphocytes # 0.8 10^3/ul Monocytes # 0.9 10^3/ul Eosinophils # 0.0 10^3/ul Basophils # 0.0 10^3/ul Nucleated Red Blood Cells # 0.0 10^3/ul Prothrombin Time 15.0 Sec Prothrombin Time Ratio 1.2 INR International Normalized Ratio 1.17 Activated Partial Thromboplast Time 28.1 Sec Sodium Level 136 mmol/L Potassium Level 5.2 mmol/L Chloride Level 95 mmol/L Carbon Dioxide Level 18 mmol/L Anion Gap 23 Blood Urea Nitrogen 87 mg/dl Creatinine 17.76 mg/dl Est Glomerular Filtrat Rate mL/min 3 mL/min Glucose Level 77 mg/dl Calcium Level 9.3 mg/dl Total Bilirubin 1.1 mg/dl Direct Bilirubin 0.00 mg/dl Indirect Bilirubin 1.1 mg/dl Aspartate Amino Transf (AST/SGOT) 63 IU/L Alanine Aminotransferase (ALT/SGPT) 53 IU/L Alkaline Phosphatase 111 IU/L Troponin I 0.111 ng/ml Total Protein 7.1 g/dl Albumin 3.9 g/dl Globulin 3.20 g/dl Albumin/Globulin Ratio 1.21 Current Medications Medications Dose Sig/Anirudh Start Time Status Last (Trade) Ordered Route PRN Stop Time Admin Dose Reason Admin Cefepime HCl 50 ml @ ONCE STAT 12/19/18 DC 12/19/18 100 mls/hr IVPB 15:14 15:54 12/19/18 15:43 Vancomycin 250 ml @ ONCE ONCE 12/19/18 DC 12/19/18 HCl 125 mls/hr IVPB 15:30 17:24 12/19/18 17:29 Procedures/MDM Patient was taken to a room, seen and evaluated. Comfort measures were initi ated. Diagnostic tests were ordered and reviewed. 3 LEAD RHYTHM STRIP: Sinus tachycardia EK lead EKG reviewed by myself: Sinus tachycardia [Normal [place] and intervals] [No ST elevation, depression, or T wave inversion] nonspecific ST and T wave changes Impression: Nonspecific EKG RADIOLOGY: [reviewed with the radiologist] CONSULTATION: Patient's primary wing mailer machine operator was notified for admission REEVALUATION: 174: Initial diagnostic tests were appreciated and arrangements were made for admission to the hospital MEDICAL DECISION MAKIN-year-old dialysis dependent male presents the emergency department short of breath. Differential diagnosis entertained was broad and potential high acuity. Patient's diagnostic evaluation seems to indicate that his fluid overload status secondary to missing dialysis is the vast majority of what is causing his shortness of breath. He does have a low- grade fever and I suspect he may have an underlying pneumonia. Overall, he does not appear to require intubation or BiPAP, but will require admission to the hospital for initiation of dialysis to clear his fluid. Departure Diagnosis: Primary Impression: Renal failure Additional Impressions: Pulmonary edema Pneumonia Condition: PETER Paige Dec 19, 2018 17:43
[2018-12-19] MEDS ORDERED: ACETAMINOPHEN 325 MG TAB PO PRN (18:30)
[2018-12-19] MEDS ORDERED: ONDANSETRON 4 MG INJ IV PRN (18:30)
[2018-12-19 23:06] VITALS: Ht 177.8 cm; Wt 84.6 kg
[2018-12-19 23:51] VITALS: BP 188/106; PULSE 114; RESP 20
[2018-12-20] VITALS (30 sets, daily range): BP systolic 116–192; BP diastolic 79–135; PULSE 80–118; RESP 17–22
[2018-12-20] MEDS ORDERED: NACL 0.9% 3 ML SYG IV SCH (00:30)
--- NOTE | 2018-12-20 02:15 | HP ---
DATE OF ADMISSION: 12/19/2018 HISTORY OF PRESENT ILLNESS: The patient is a 38-year-old gentleman with a past medical history of en d-stage renal disease, on hemodialysis normally on a Monday, , and Monday schedule, currdionicio mills dialyzing via Perm-A-Cath, although has a newly-placed left forearm AV fistula. The patient has a history of cardiomyopathy, EF 25, history of mineral bone disorder, anemia, and history of hyperten missael who presents to the [facility] after missing hemodialysis on Monday. His las t hemodialysis was Monday without complication. Patient has noticed shortness of breath. He has b een limiting his fluid intake, but despite this was unable to lie flat. Chest x-ray showed fluid ove rload, possibility of underlying infiltrate was there. The patient was already started on antibiotic s. White count was noted to be 12.4. No other changes to any of his medications. There have been n o recent fevers, chills, nausea, vomiting, or chest pain. He had similar episodes like this a few mo nths back. PAST MEDICAL HISTORY: As above. MEDICATIONS: From admission include: 1. Aspirin. 2. Losartan. 3. Coreg. ALLERGIES: PATIENT HAS NO KNOWN ALLERGIES. SOCIAL HISTORY: Does not smoke, drink or use IV drugs. FAMILY HISTORY: No history of kidney disease. REVIEW OF SYSTEMS: A 14-point review of systems attempted and negative unless stated in the exam. PHYSICAL EXAMINATION: VITAL SIGNS: We see temperature 100.8, blood pressure 179/126. HEENT: Normocephalic, atraumatic. Pupils are equal, round, and reactive to light. Pharynx is moist . NECK: Supple. HEART: Regular rate and rhythm. LUNGS: Show crackles bilaterally, no retractions. ABDOMEN: Soft, nontender, nondistended. Normoactive bowel sounds. EXTREMITIES: No gross edema. LABORATORY EVALUATION: White count 12.4, hemoglobin 10.2, hematocrit 31.8, platelets 173. Sodium 13 6, potassium 5.2, BUN is 87, creatinine 17.76. UA is reviewed by microscopy. Chest x-ray is reviewe d with the radiologist. IMPRESSION: 1. End-stage renal disease, on dialysis. Dialysis arranged in advance and currently on dialysis vane for dialysis needs. All medications are dosed appropriately for renal function, may need another dialysis tomorrow, which would put him back on schedule. 2. Respiratory failure likely related to congestive heart failure, nephrogenic, with underlying infi ltrate. 3. Leukocytosis, possibly related to underlying infection. The patient was started on antibiotics f or community-acquired possible pneumonia. No other clear source. 4. Hypertension with urgency, likely related to volume overload. We will monitor with diuresis. Co ntinue regular medications. 5. History of cardiomyopathy, worked up previously. Consider cardiology consultation. 6. History of recently placed Lakia fistula, awaiting maturation. 7. Anemia, mild, therapeutic at this time. Continue Epogen as per schedule. Dictated By: DAVE MEDRANO MD DF/ZAKIA Conf#: [id number] DID#: [id number]
[2018-12-20] MEDS: HEPARIN 1000 UNITS/ML 10 ML INJ CATHETER SCH ×2 (03:56→22:43)
[2018-12-20] MEDS: LOSARTAN 50 MG TAB PO SCH (08:19)
[2018-12-20] MEDS: SEVELAMER CARBONATE 800 MG TABLET PO SCH ×3 (08:19→17:11)
[2018-12-20] MEDS: ASPIRIN (EC) 81 MG TAB PO SCH (08:19)
--- NOTE | 2018-12-20 09:34 | CONS ---
Consult Date/Type/Reason Admit Date/Time Dec 19, 2018 at 18:10 Initial Consult Date Date/Time of Note DATE: 12/20/18 TIME: 09:29 Subjective 38-year-old gentleman with a past medical history of end-stage renal disease, on hemodialysis normally on a Monday, , and Monday schedule, currently d ialyzing via Perm-A-Cath, although has a newly-placed left forearm AV fistula. The patient has a history of cardiomyopathy, EF 25, history of mineral bone disorder, anemia, and history of hypertension who presents to the [facility] after missing hemodialysis on Monday. His last hemodialysis was Monday without complication. Patient has noticed shortness of breath. He has been limiting his fluid intake, but despite this was unable to lie flat. Chest x-ray showed fluid overload, possibility of underlying infiltrate was there. The patient was already started on antibiotics. White count was noted to be 12.4. No other changes to any of his medications. There have been no recent fevers, chills, nausea, vomiting, or chest pain. He had similar episodes like this a few months back. co cramps since this am. PHYSICAL EXAMINATION: HEENT: Normocephalic, atraumatic. Pupils are equal, round, and reactive to light. Pharynx is moist. NECK: Supple. HEART: Regular rate and rhythm. LUNGS: Show crackles bilaterally, no retractions. ABDOMEN: Soft, nontender, nondistended. Normoactive bowel sounds. EXTREMITIES: No gross edema. Objective Vitals Vital Signs Date Temp Pulse Resp B/P (MAP) Pulse Ox O2 O2 Flow FiO2 Time Delivery Rate 12/20/18 98.5 114 20 159/100 95 Room Air 07:19 (119) 12/20/18 2.0 01:30 Intake and Output 12/19/18 12/19/18 12/20/18 1515:00 23:00 07:00 IntakeIntake Total 800 ml OutputOutput Total 3400 ml BalanceBalance -2600 ml Results/Medications Result Diagram: 12/19/18 1524 12/19/18 1524 Results 24 hrs Laboratory Tests Test 12/19/18 15:20 12/19/18 15:24 12/19/18 19:33 12/19/18 21:37 POC Venous Lactate 2.2 *H White Blood Count 12.4 #H Red Blood Count 3.25 L Hemoglobin 10.2 L Hematocrit 31.8 L Mean Corpuscular 97.8 Volume Mean Corpuscular 31.4 Hemoglobin Mean Corpuscular 32.1 Hemoglobin Concent Red Cell 17.1 H Distribution Width Platelet Count 173 # Mean Platelet Volume 10.9 H Immature 0.600 H Granulocytes % Neutrophils % 86.1 H Lymphocytes % 6.1 L Monocytes % 6.9 Eosinophils % 0.1 Basophils % 0.2 Nucleated Red Blood 0.0 Cells % Immature 0.070 H Granulocytes # Neutrophils # 10.7 H Lymphocytes # 0.8 Monocytes # 0.9 Eosinophils # 0.0 Basophils # 0.0 Nucleated Red Blood 0.0 Cells # Prothrombin Time 15.0 H Prothrombin Time 1.2 Ratio INR International 1.17 Normalized Ratio Activated 28.1 Partial Thromboplast Time Sodium Level 136 Potassium Level 5.2 H Chloride Level 95 L Carbon Dioxide Level 18 L Anion Gap 23 H Blood Urea Nitrogen 87 H Creatinine 17.76 H Est Glomerular 3 L Filtrat Rate mL/min Glucose Level 77 Calcium Level 9.3 Total Bilirubin 1.1 Direct Bilirubin 0.00 Indirect Bilirubin 1.1 Aspartate Amino 63 H Transf (AST/SGOT) Alanine 53 Aminotransferase (AL T/SGPT) Alkaline Phosphatase 111 Troponin I 0.111 Total Protein 7.1 Albumin 3.9 Globulin 3.20 Albumin/Globulin 1.21 Ratio Lactic Acid Level 1.9 Hepatitis B Surface NEGATIVE Antigen Test 12/19/18 21:38 Lactic Acid Level 2.0 Home Meds Reported Medications Aspirin* (Aspirin* EC) 81 Mg Tablet.dr, 81 MG PO NEEDED, TAB 12/19/18 Losartan Potassium* (Losartan Potassium*) 100 Mg Tablet, 100 MG PO DAILY for 30 Days, #30 take 1 tablet by mouth once daily 08/17/18 Carvedilol* (Coreg*) 25 Mg Tablet, 25 MG PO BID, #60 TAB 07/26/18 Medications Current Medications Ondansetron HCl (Zofran Inj) 4 mg ER BRIDGE PRN IV NAUSEA/VOMITING; Start 12/19/18 at 18:30; Stop 12/20/18 at 18:29 Acetaminophen (Tylenol Tab) 650 mg ER BRIDGE PRN PO .MILD PAIN 1-3 OR TEMP; Start 12/19/18 at 18:30; Stop 12/20/18 at 18:29 Aspirin (Halfprin) 81 mg DAILY PO Last administered on 12/20/18 08:19; Admin Dose 81 MG; Start 12/20/18 at 09:00 Carvedilol (Coreg) 25 mg BID PO Last administered on 12/20/18 08:20; Admin Dose 25 MG; Start 12/20/18 at 09:00 Losartan Potassium (Cozaar) 100 mg DAILY PO Last administered on 12/20/18 08:19; Admin Dose 100 MG; Start 12/20/18 at 09:00 Sevelamer Carbonate (Renvela) 1,600 mg WITH MEALS PO Last administered on 12/20/18 08:19; Admin Dose 1,600 MG; Start 12/20/18 at 08:00 IV Flush (NS 3 ml) 3 ml PER PROTOCOL IV ; Start 12/20/18 at 00:30 Heparin Sodium (Porcine) (Heparin (1000 Units/ml)) 3,300 unit AFTER DIALYSIS CATHETER Last administered on 12/20/18at 03:56; Admin Dose 3,300 UNIT; Start at 02:00 Assessment/Plan Hospital Course (Demo Recall) 1. End-stage renal disease, on dialysis. Dialysis arranged in advance and currently on dialysis. -assess daily for dialysis needs. All medications are dosed appropriately for renal function, may need another dialysis tomorrow, which would put him back on schedule. 2. Respiratory failure likely related to congestive heart failure, nephrogenic, with possible underlying infiltrate. 3. Leukocytosis, possibly related to underlying infection. The patient was started on antibiotics for community-acquired possible pneumonia. No other clear source. 4. Hypertension with urgency, likely related to volume overload. We will monitor with diuresis. Continue regular medications. 5. History of cardiomyopathy, worked up previously. negative lexiscan for reversible ischema. cardiology consultation. ef 20% in past. Poss candidate for defibrillator. 6. History of recently placed Lakia fistula, awaiting maturation. 7. Anemia, mild, therapeutic at this time. Continue Epogen as per schedule. DAVE MEDRANO MD Dec 20, 2018 09:34
--- NOTE | 2018-12-20 10:36 | CONS ---
Assessment/Plan Assessment/Plan Hospital Course (Demo Recall) Congestive heart failure: Acute on chronic due to systolic heart failure as well as fluid overload due to poor compliance with hemodialysis Severe nonischemic cardiomyopathy Hypertension Anemia Recommendations: Continue with the current dose of losartan 100 mg daily. Coreg 25 twice daily will be continued for now. Hemodialysis to be arranged to be done again today. If patient continues to be hypertensive after hemodialysis will increase the carvedilol dose to 50 mg p.o. twice daily tomorrow. We will repeat echocardiogram to evaluate to see if any improvement LV function and valvular heart disease Thank you for this referral. I will continue to follow along with you Consultation Date/Type/Reason Admit Date/Time Dec 19, 2018 at 18:10 Date of Consultation: Dec 20, 2018 Type of Consult Cardiology Reason for Consultation chf Requesting Provider: DAVE MEDRANO MD Date/Time of Note DATE: 12/20/18 TIME: 10:32 Hx of Present Illness Interventional cardiology consultation note Chief complaint: Shortness of breath Reason for consult: CHF History of present illness: Thank you for this referral. History was obtained from the patient review of the old chart discussion with staff and physicians. Patient also very well- known from previous admission to the hospital This is a 38-year-old [place] gentleman with history of nonischemic cardiomyopathy renal failure on dialysis who came to emergency room increasing shortness of breath. Patient has had last dialysis on Monday. It was uneventful. He could not get dialyzed on Monday. On Monday he became more short of breath and finally came to the hospital last night. He has had a dialysis breathing better but is still continues to be short of breath. Chest x-ray also showed fluid overload and congestive heart failure Patient at this point is that he has been compliant with his medications been taking them regularly Allergies: No known drug allergies Medications were reviewed as per medical reconciliation sheet Family history: Denies any history of early coronary artery disease Social history: Patient said he has quit smoking now. Apparently has been a heavy drinker but he said that he has quit in January 2018 Past medical history: Hypertension, renal failure on dialysis cardiomyopathy congestive heart failure which appears to be nonischemic. Previous stress test done in 2019 did not show any significant reversible ischemia Review of system: Patient denies all others except for above-mentioned Past Medical History Home Meds Reported Medications Aspirin* (Aspirin* EC) 81 Mg Tablet., 81 MG PO NEEDED, TAB 12/19/18 Losartan Potassium* (Losartan Potassium*) 100 Mg Tablet, 100 MG PO DAILY for 30 Days, #30 take 1 tablet by mouth once daily 08/17/18 Carvedilol* (Coreg*) 25 Mg Tablet, 25 MG PO BID, #60 TAB 07/26/18 Medications Current Medications Ondansetron HCl (Zofran Inj) 4 mg ER BRIDGE PRN IV NAUSEA/VOMITING; Start 12/19/18 at 18:30; Stop 12/20/18 at 18:29 Acetaminophen (Tylenol Tab) 650 mg ER BRIDGE PRN PO .MILD PAIN 1-3 OR TEMP; Start 12/19/18 at 18:30; Stop 12/20/18 at 18:29 Aspirin (Halfprin) 81 mg DAILY PO Last administered on 12/20/18at 08:19; Admin Dose 81 MG; Start 12/20/18 at 09:00 Carvedilol (Coreg) 25 mg BID PO Last administered on 12/20/18at 08:20; Admin Dose 25 MG; Start 12/20/18 at 09:00 Losartan Potassium (Cozaar) 100 mg DAILY PO Last administered on 12/20/18at 08:19; Admin Dose 100 MG; Start 12/20/18 at 09:00 Sevelamer Carbonate (Renvela) 1,600 mg WITH MEALS PO Last administered on 12/20/18at 08:19; Admin Dose 1,600 MG; Start 12/20/18 at 08:00 IV Flush (NS 3 ml) 3 ml PER PROTOCOL IV ; Start 12/20/18 at 00:30 Heparin Sodium (Porcine) (Heparin (1000 Units/ml)) 3,300 unit AFTER DIALYSIS CATHETER Last administered on 12/20/18at 03:56; Admin Dose 3,300 UNIT; Start 12/20/18 at 02:00 Allergies: Coded Allergies: No Known Allergy (Unverified , 12/19/18) Social History Smoking Status: Former smoker Exam/Review of Systems Vital Signs Vitals Vital Signs Date Temp Pulse Resp B/P (MAP) Pulse Ox O2 O2 Flow FiO2 Time Delivery Rate 12/20/18 98.5 114 20 159/100 95 Room Air 07:19 (119) 12/20/18 2.0 01:30 Intake and Output 12/19/18 12/19/18 12/20/18 1515:00 23:00 07:00 IntakeIntake Total 800 ml OutputOutput Total 3400 ml BalanceBalance -2600 ml Exam Exam General: Mild respiratory distress HEENT: NC/AT. pupils are equal. round. NECK: + JVD. no stridor. CV: RRR. systolic murmur; no gallop or rubs. PULM: no wheezing . mild rhonchi. GI: SOFT, NT, ND, no rebound or guarding Extremity: trace B/L LE edema. no clubbing. neuro: awake and alert, OX3. Psych: calm and pleasant rectal: deferred EKG was personally reviewed showed normal sinus rhythm. Nonspecific ST abnormality. Voltage criteria for LVH Labs Result Diagram: 12/19/18 1524 12/19/18 1524 Results 24hrs Laboratory Tests Test 12/19/18 15:20 12/19/18 15:24 12/19/18 19:33 12/19/18 21:37 POC Venous Lactate 2.2 *H White Blood Count 12.4 #H Red Blood Count 3.25 L Hemoglobin 10.2 L Hematocrit 31.8 L Mean Corpuscular 97.8 Volume Mean Corpuscular 31.4 Hemoglobin Mean Corpuscular 32.1 Hemoglobin Concent Red Cell 17.1 H Distribution Width Platelet Count 173 # Mean Platelet Volume 10.9 H Immature 0.600 H Granulocytes % Neutrophils % 86.1 H Lymphocytes % 6.1 L Monocytes % 6.9 Eosinophils % 0.1 Basophils % 0.2 Nucleated Red Blood 0.0 Cells % Immature 0.070 H Granulocytes # Neutrophils # 10.7 H Lymphocytes # 0.8 Monocytes # 0.9 Eosinophils # 0.0 Basophils # 0.0 Nucleated Red Blood 0.0 Cells # Prothrombin Time 15.0 H Prothrombin Time 1.2 Ratio INR International 1.17 Normalized Ratio Activated 28.1 Partial Thromboplast Time Sodium Level 136 Potassium Level 5.2 H Chloride Level 95 L Carbon Dioxide Level 18 L Anion Gap 23 H Blood Urea Nitrogen 87 H Creatinine 17.76 H Est Glomerular 3 L Filtrat Rate mL/min Glucose Level 77 Calcium Level 9.3 Total Bilirubin 1.1 Direct Bilirubin 0.00 Indirect Bilirubin 1.1 Aspartate Amino 63 H Transf (AST/SGOT) Alanine 53 Aminotransferase (AL T/SGPT) Alkaline Phosphatase 111 Troponin I 0.111 Total Protein 7.1 Albumin 3.9 Globulin 3.20 Albumin/Globulin 1.21 Ratio Lactic Acid Level 1.9 Hepatitis B Surface NEGATIVE Antigen Test 12/19/18 21:38 Lactic Acid Level 2.0 Medications Medications Current Medications Ondansetron HCl (Zofran Inj) 4 mg ER BRIDGE PRN IV NAUSEA/VOMITING; Start 12/19/18 at 18:30; Stop 12/20/18 at 18:29 Acetaminophen (Tylenol Tab) 650 mg ER BRIDGE PRN PO .MILD PAIN 1-3 OR TEMP; Start 12/19/18 at 18:30; Stop 12/20/18 at 18:29 Aspirin (Halfprin) 81 mg DAILY PO Last administered on 12/20/18at 08:19; Admin Dose 81 MG; Start 12/20/18 at 09:00 Carvedilol (Coreg) 25 mg BID PO Last administered on 12/20/18at 08:20; Admin Dose 25 MG; Start 12/20/18 at 09:00 Losartan Potassium (Cozaar) 100 mg DAILY PO Last administered on 12/20/18at 08:19; Admin Dose 100 MG; Start 12/20/18 at 09:00 Sevelamer Carbonate (Renvela) 1,600 mg WITH MEALS PO Last administered on 12/20/18at 08:19; Admin Dose 1,600 MG; Start 12/20/18 at 08:00 IV Flush (NS 3 ml) 3 ml PER PROTOCOL IV ; Start 12/20/18 at 00:30 Heparin Sodium (Porcine) (Heparin (1000 Units/ml)) 3,300 unit AFTER DIALYSIS CATHETER Last administered on 12/20/18at 03:56; Admin Dose 3,300 UNIT; Start 12/20/18 at 02:00 DENILSON SCOTT MD Dec 20, 2018 10:36
[2018-12-20] MEDS ORDERED: CYCLOBENZAPRINE 10 MG TAB PO ONE (11:30)
[2018-12-20] MEDS ORDERED: ACETAMINOPHEN 325 MG TAB PO PRN (23:30)
[2018-12-21] VITALS (7 sets, daily range): BP systolic 141–158; BP diastolic 71–110; PULSE 77–91; RESP 18–21
--- NOTE | 2018-12-21 08:30 | CONS ---
Consult Date/Type/Reason Admit Date/Time Dec 19, 2018 at 18:10 Initial Consult Date 12/20/18 Type of Consultation: cv Requesting Provider: DAVE MEDRANO MD Date/Time of Note DATE: 12/21/18 TIME: 08:27 Subjective Interventional cardiology follow-up progress note Subjective: Discussed with the staff telemetry was reviewed patient remains sinus and no atrial fibrillation No chest pain or pressure He has had hemodialysis again done yesterday and his breathing is back to his baseline but his report Objective: General: Mild respiratory distress HEENT: NC/AT. pupils are equal. round. NECK: + JVD. no stridor. CV: RRR. systolic murmur; no gallop or rubs. PULM: no wheezing . mild rhonchi. GI: SOFT, NT, ND, no rebound or guarding Extremity: trace B/L LE edema. no clubbing. neuro: awake and alert, OX3. Psych: calm and pleasant rectal: deferred EKG was personally reviewed showed normal sinus rhythm. Nonspecific ST abnormality. Voltage criteria for LVH Objective Vitals Vital Signs Date Temp Pulse Resp B/P (MAP) Pulse Ox O2 O2 Flow FiO2 Time Delivery Rate 12/21/18 97.8 91 20 158/110 94 Room Air 07:38 (126) 12/20/18 2.0 01:30 Intake and Output 12/20/18 12/20/18 12/21/18 1515:00 23:00 07:00 IntakeIntake Total 600 ml 800 ml OutputOutput Total 4400 ml BalanceBalance 600 ml -3600 ml Results/Medications Result Diagram: 12/21/18 0509 12/21/18 0509 Results 24 hrs Laboratory Tests Test 12/20/18 10:27 12/21/18 05:09 White Blood Count 8.0 # 4.7 #L Red Blood Count 2.89 L 3.03 L Hemoglobin 9.0 L 9.3 L Hematocrit 27.4 L 29.1 L Mean Corpuscular Volume 94.8 96.0 Mean Corpuscular Hemoglobin 31.1 30.7 Mean Corpuscular Hemoglobin Concent 32.8 32.0 Red Cell Distribution Width 16.7 H 16.4 H Platelet Count 127 #L 92 #L Mean Platelet Volume 10.7 H 10.0 Immature Granulocytes % 0.200 0.200 Neutrophils % 79.4 H 69.4 Lymphocytes % 11.6 L 15.7 Monocytes % 7.8 12.0 H Eosinophils % 0.4 2.1 Basophils % 0.6 0.6 Nucleated Red Blood Cells % 0.0 0.0 Immature Granulocytes # 0.020 0.010 Neutrophils # 6.4 3.2 Lymphocytes # 0.9 0.7 L Monocytes # 0.6 0.6 Eosinophils # 0.0 0.1 Basophils # 0.1 0.0 Nucleated Red Blood Cells # 0.0 0.0 Sodium Level 137 139 Potassium Level 4.2 3.7 Chloride Level 95 L 99 Carbon Dioxide Level 25 29 Anion Gap 17 H 11 Blood Urea Nitrogen 77 H 63 H Creatinine 14.40 #H 10.64 #H Est Glomerular Filtrat Rate mL/min 4 L 5 L Glucose Level 121 # 102 Calcium Level 8.5 8.2 L Phosphorus Level 9.0 H 6.5 #H Magnesium Level 2.1 2.1 Total Bilirubin 0.8 0.6 Direct Bilirubin 0.00 0.00 Indirect Bilirubin 0.8 0.6 Aspartate Amino Transf (AST/SGOT) 126 #H 91 H Alanine Aminotransferase (ALT/SGPT) 123 H 119 H Alkaline Phosphatase 85 81 Total Protein 6.3 5.8 L Albumin 3.5 3.0 L Globulin 2.80 2.80 Albumin/Globulin Ratio 1.25 1.07 Thyroid Stimulating Hormone (TSH) 2.720 Free Thyroxine Index 2.51 Thyroxine (T4) 6.6 Triiodothyronine (T3) Uptake 38.1 Hemoglobin A1c 4.9 Home Meds Reported Medications Aspirin* (Aspirin* EC) 81 Mg Tablet.dr, 81 MG PO NEEDED, TAB 12/19/18 Losartan Potassium* (Losartan Potassium*) 100 Mg Tablet, 100 MG PO DAILY for 30 Days, #30 take 1 tablet by mouth once daily 08/17/18 Carvedilol* (Coreg*) 25 Mg Tablet, 25 MG PO BID, #60 TAB 07/26/18 Medications Current Medications Aspirin (Halfprin) 81 mg DAILY PO Last administered on 12/20/18at 08:19; Admin Dose 81 MG; Start 12/20/18 at 09:00 Carvedilol (Coreg) 25 mg BID PO Last administered on 12/20/18at 22:44; Admin Dose 25 MG; Start 7/18/19 at 09:00 Losartan Potassium (Cozaar) 100 mg DAILY PO Last administered on 12/20/18at 08:19; Admin Dose 100 MG; Start 12/20/18 at 09:00 Sevelamer Carbonate (Renvela) 1,600 mg WITH MEALS PO Last administered on 12/20/18at 17:11; Admin Dose 1,600 MG; Start 12/20/18 at 08:00 IV Flush (NS 3 ml) 3 ml PER PROTOCOL IV ; Start 12/20/18 at 00:30 Heparin Sodium (Porcine) (Heparin (1000 Units/ml)) 3,300 unit AFTER DIALYSIS CATHETER Last administered on 12/20/18at 22:43; Admin Dose 3,300 UNIT; Start 12/20/18 at 02:00 Acetaminophen (Tylenol Tab) 650 mg Q6H PRN PO MILD PAIN(1-3)OR ELEVATED TEMP; Start 12/20/18 at 23:30 Assessment/Plan Hospital Course (Demo Recall) Congestive heart failure: Acute on chronic due to systolic heart failure as well as fluid overload due to poor compliance with hemodialysis Severe nonischemic cardiomyopathy Hypertension Anemia Recommendations: Continue with the current dose of losartan 100 mg daily. Increase Coreg 50 twice daily Hemodialysis as per renal Patient should be considered for outpatient elective placement of ICD if EF does not improve on medical therapy for primary prevention of sudden cardiac de ath, once he his permacath has been removed. dc planning as per IM Thank you for this referral. I will continue to follow along with you DENILSON SCOTT MD Dec 21, 2018 08:30
[2018-12-21] MEDS: SEVELAMER CARBONATE 800 MG TABLET PO SCH ×3 (08:37→18:36)
[2018-12-21] MEDS: LOSARTAN 50 MG TAB PO SCH (08:38)
[2018-12-21] MEDS: ASPIRIN (EC) 81 MG TAB PO SCH (08:41)
--- NOTE | 2018-12-21 08:45 | RADRPT ---
Echocardiogram Report Patient Name: JOYCELYN ESTESatient ID: [id number] : 1980 (38y 7m)Study Date: 12/20/2018 12:19:43 PM Gender: MAccession #: [id number] Tech: Eli Parr UMBERTO Location: [facility] Ref.Physician: DENILSON TAYLOR Height(Cm): BSA: Weight(Kg): Quality: AdequateOrder Physician: DENILSON TAYLOR Account #: Procedures: Echocardiographic Report: Transthoracic echocardiogram with complete 2D, M-Mode, and doppler examination. Indications: Cardiomegaly, and Congestive Heart Failure. Measurements: 2D/M Mode Doppler Measurement Value Normal Range Measurement Value Normal Range LVIDd 2D 6.2 [ 4.2 - 5.8 ] cm AV Peak Steffen 1.6 [ 100.0 - 170.0 ] cm/sec LVIDs 2D 4.9 [ 2.5 - 4.0 ] cm AV Peak PG 10.0 [ 2.0 - 9.0 ] mmHg LVPWd 2D 1.2 [ 0.6 - 1.0 ] cm LVOT Peak Steffen 1.2 [ 70.0 - 110.0 ] cm/sec IVSd 2D 1.1 [ 0.6 - 1.0 ] cm LVOT Peak PG 6.0 [ 2.0 - 6.0 ] mmHg AoR Diam 2D 3.0 [ 2.6 - 3.4 ] cm MV E Peak Steffen 1.1 [ 60.0 - 130.0 ] cm/sec EDV 2D 193.0 [ 62.0 - 150.0 ] ml MV A Peak Steffen 0.5 [ 100.0 - 120.0 ] cm/sec ESV 2D 116.0 [ 21.0 - 61.0 ] ml MV E/A 2.1 [ 0.8 - 1.5 ] ratio EF 2D 39.9 [ 52.0 - 72.0 ] percent MV Decel Time 148 [ 104 - 258 ] msec LA Dimen 2D 4.5 [ 3.0 - 4.0 ] cm Lat E` Steffen 0.1 [ 10.0 - 15.0 ] cm/sec Lateral E/E` 13.0 [ 1.0 - 2.0 ] ratio Med E` Steffen 0.1 cm/sec MV E/A 2.1 [ 0.8 - 1.5 ] ratio TR Peak Steffen 3.2 [ 100.0 - 280.0 ] cm/sec TR Peak PG 42.0 mmHg RVSP 52.0 [ 10.0 - 36.0 ] mmHg RA Pressure 10.0 mmHg Findings: Left Ventricle: Mild concentric left ventricular hypertrophy. Mild enlargement of left ventricle cavity. Severe global left ventricular systolic dysfunction. Ejection fraction is visually estimated at 25-30 %. Abnormal Diastolic Function. Right Ventricle: Normal right ventricular size. Left Atrium: There is moderate enlargement of left atrium. Right Atrium: There is moderate enlargement of right atrium. Mitral Valve: Mitral valve leaflets appear mildly thickened. Mild mitral annular calcification. Mild to moderate mitral valve regurgitation. Aortic Valve: Normal appearance of the aortic valve. No significant aortic stenosis or insufficiency. Tricuspid Valve: Normal appearance of the tricuspid valve. The estimated Peak RVSP is 52 mmHg. There is moderate tricuspid regurgitation. Pulmonic Valve: Normal pulmonic valve appearance. Pericardium: Small pericardial effusion. Pleural effusion seen. Aorta: Normal aortic root. IVC: Normal size and normal respiratory collapse consistent with normal right atrial pressure. Conclusions: Normal right ventricular size. There is moderate enlargement of left atrium. Mild concentric left ventricular hypertrophy. Mild enlargement of left ventricle cavity. Severe global left ventricular systolic dysfunction. Ejection fraction is visually estimated at 25-30 %. Abnormal Diastolic Function. Mitral valve leaflets appear mildly thickened. Mild mitral annular calcification. Mild to moderate mitral valve regurgitation. Normal appearance of the aortic valve. No significant aortic stenosis or insufficiency. Normal appearance of the tricuspid valve. The estimated Peak RVSP is 52 mmHg. There is moderate tricuspid regurgitation. Small pericardial effusion. Pleural effusion seen. There is moderate enlargement of right atrium. Electronically Signed By: Denilson Taylor 2018-12-21 08:44:21 PDT
--- NOTE | 2018-12-21 23:23 | CONS ---
Consult Date/Type/Reason Admit Date/Time Dec 19, 2018 at 18:10 Initial Consult Date Type of Consultation: cv Requesting Provider: DAVE MEDRANO MD Date/Time of Note DATE: 12/21/18 TIME: 23:21 Subjective 38-year-old gentleman with a past medical history of end-stage renal disease, on hemodialysis normally on a Monday, , and Monday schedule, currently dialyzing via Perm-A-Cath, although has a newly-placed left forearm AV fistula. The patient has a history of cardiomyopathy, EF 25, history of mineral bone disorder, anemia, and history of hypertension who presents to the [facility] after missing hemodialysis on Monday. His last hemodialysis was Monday without complication. Patient has noticed shortness of breath. He has been limiting his fluid intake, but despite this was unable to lie flat. Chest x-ray showed fluid overload, possibility of underlying infiltrate was there. The patient was already started on antibiotics. White count was noted to be 12.4. No other changes to any of his medications. There have been no recent fevers, chills, nausea, vomiting, or chest pain. He had similar episodes like this a few months back. seen on hd today. brathing has improved. PHYSICAL EXAMINATION: HEENT: Normocephalic, atraumatic. Pupils are equal, round, and reactive to light. Pharynx is moist. NECK: Supple. HEART: Regular rate and rhythm. LUNGS: Show crackles (decreased) bilaterally, no retractions. ABDOMEN: Soft, nontender, nondistended. Normoactive bowel sounds. EXTREMITIES: No gross edema. Objective Vitals Vital Signs Date Temp Pulse Resp B/P (MAP) Pulse Ox O2 O2 Flow FiO2 Time Delivery Rate 12/21/18 83 20:00 12/21/18 97.9 20 143/89 98 19:36 (107) 12/21/18 Room Air 11:25 12/20/18 2.0 01:30 Intake and Output 12/20/18 12/20/18 12/21/18 1515:00 23:00 07:00 IntakeIntake Total 600 ml 800 ml OutputOutput Total 4400 ml BalanceBalance 600 ml -3600 ml Results/Medications Result Diagram: 12/21/18 0509 12/21/18 0509 Results 24 hrs Laboratory Tests Test 12/21/18 05:09 White Blood Count 4.7 #L Red Blood Count 3.03 L Hemoglobin 9.3 L Hematocrit 29.1 L Mean Corpuscular Volume 96.0 Mean Corpuscular Hemoglobin 30.7 Mean Corpuscular Hemoglobin Concent 32.0 Red Cell Distribution Width 16.4 H Platelet Count 92 #L Mean Platelet Volume 10.0 Immature Granulocytes % 0.200 Neutrophils % 69.4 Lymphocytes % 15.7 Monocytes % 12.0 H Eosinophils % 2.1 Basophils % 0.6 Nucleated Red Blood Cells % 0.0 Immature Granulocytes # 0.010 Neutrophils # 3.2 Lymphocytes # 0.7 L Monocytes # 0.6 Eosinophils # 0.1 Basophils # 0.0 Nucleated Red Blood Cells # 0.0 Sodium Level 139 Potassium Level 3.7 Chloride Level 99 Carbon Dioxide Level 29 Anion Gap 11 Blood Urea Nitrogen 63 H Creatinine 10.64 #H Est Glomerular Filtrat Rate mL/min 5 L Glucose Level 102 Hemoglobin A1c 4.9 Calcium Level 8.2 L Phosphorus Level 6.5 #H Magnesium Level 2.1 Total Bilirubin 0.6 Direct Bilirubin 0.00 Indirect Bilirubin 0.6 Aspartate Amino Transf (AST/SGOT) 91 H Alanine Aminotransferase (ALT/SGPT) 119 H Alkaline Phosphatase 81 Total Protein 5.8 L Albumin 3.0 L Globulin 2.80 Albumin/Globulin Ratio 1.07 Home Meds Reported Medications Aspirin* (Aspirin* EC) 81 Mg Tablet.dr, 81 MG PO NEEDED, TAB 12/19/18 Losartan Potassium* (Losartan Potassium*) 100 Mg Tablet, 100 MG PO DAILY for 30 Days, #30 take 1 tablet by mouth once daily 08/17/18 Carvedilol* (Coreg*) 25 Mg Tablet, 25 MG PO BID, #60 TAB 07/26/18 Medications Current Medications Aspirin (Halfprin) 81 mg DAILY PO Last administered on 12/21/18at 08:41; Admin Dose 81 MG; Start 12/20/18 at 09:00 Losartan Potassium (Cozaar) 100 mg DAILY PO Last administered on 12/21/18at 08:38; Admin Dose 100 MG; Start 12/20/18 at 09:00 Sevelamer Carbonate (Renvela) 1,600 mg WITH MEALS PO Last administered on 12/21/18at 18:36; Admin Dose 1,600 MG; Start 12/20/18 at 08:00 IV Flush (NS 3 ml) 3 ml PER PROTOCOL IV ; Start 12/20/18 at 00:30 Heparin Sodium (Porcine) (Heparin (1000 Units/ml)) 3,300 unit AFTER DIALYSIS CA THETER Last administered on 12/20/18at 22:43; Admin Dose 3,300 UNIT; Start 12/20/18 at 02:00 Acetaminophen (Tylenol Tab) 650 mg Q6H PRN PO MILD PAIN(1-3)OR ELEVATED TEMP; Start 12/20/18 at 23:30 Carvedilol (Coreg) 50 mg BID PO Last administered on 12/21/18at 20:32; Admin Dose 50 MG; Start 12/21/18 at 09:00 Assessment/Plan Hospital Course (Demo Recall) 1. End-stage renal disease, on dialysis. Dialysis arranged in advance and currently on dialysis. -assess daily for dialysis needs. All medications are dosed appropriately for renal function, may need another dialysis tomorrow, which would put him back on schedule. 2. 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 3. Leukocytosis, possibly related to underlying infection. The patient was started on antibiotics for community-acquired possible pneumonia. No other clear source. now improved. 4. Hypertension with urgency, likely related to volume overload. We will m onitor with diuresis. Continue regular medications. 5. History of cardiomyopathy, worked up previously. negative lexiscan for reversible ischema. cardiology consultation. ef 20% in past. Poss candidate for defibrillator. 6. History of recently placed Lakia fistula, awaiting maturation. 7. Anemia, mild, therapeutic at this time. Continue Epogen as per schedule. DAVE MEDRANO MD Dec 21, 2018 23:23
[2018-12-22] VITALS (21 sets, daily range): BP systolic 146–165; BP diastolic 88–119; PULSE 74–82; RESP 18–21
[2018-12-22] MEDS: SEVELAMER CARBONATE 800 MG TABLET PO SCH ×3 (08:58→18:00)
[2018-12-22] MEDS: ASPIRIN (EC) 81 MG TAB PO SCH (08:58)
[2018-12-22] MEDS: LOSARTAN 50 MG TAB PO SCH (08:58)
--- NOTE | 2018-12-22 10:03 | CONS ---
Consult Date/Type/Reason Admit Date/Time Dec 19, 2018 at 18:10 Initial Consult Date Type of Consultation: cv Requesting Provider: DAVE MEDRANO MD Date/Time of Note DATE: 12/22/18 TIME: 10:03 Subjective 38-year-old gentleman with a past medical history of end-stage renal disease, on hemodialysis normally on a Monday, , and Monday schedule, currently dialyzing via Perm-A-Cath, although has a newly-placed left forearm AV fistula. The patient has a history of cardiomyopathy, EF 25, history of mineral bone disorder, anemia, and history of hypertension who presents to the [facility] after missing hemodialysis on Monday. His last hemodialysis was Monday without complication. Patient has noticed shortness of breath. He has been limiting his fluid intake, but despite this was unable to lie flat. Chest x-ray showed fluid overload, possibility of underlying infiltrate was there. The patient was already started on antibiotics. White count was noted to be 12.4. No other changes to any of his medications. There have been no recent fevers, chills, nausea, vomiting, or chest pain. He had similar episodes like this a few months back. seen on hd today. breathing has improved. PHYSICAL EXAMINATION: HEENT: Normocephalic, atraumatic. Pupils are equal, round, and reactive to light. Pharynx is moist. NECK: Supple. HEART: Regular rate and rhythm. LUNGS: Show crackles (decreased) bilaterally, no retractions. ABDOMEN: Soft, nontender, nondistended. Normoactive bowel sounds. EXTREMITIES: No gross edema. Objective Vitals Vital Signs Date Temp Pulse Resp B/P (MAP) Pulse Ox O2 O2 Flow FiO2 Time Delivery Rate 12/22/18 97.5 81 18 156/106 95 07:33 (123) 12/21/18 Room Air 11:25 12/20/18 2.0 01:30 Intake and Output 12/21/18 12/21/18 12/22/18 1515:00 23:00 07:00 IntakeIntake Total 600 ml 490 ml 850 ml BalanceBalance 600 ml 490 ml 850 ml Results/Medications Result Diagram: 12/21/18 0501 12/21/18 0508 Home Meds Reported Medications Aspirin* (Aspirin* EC) 81 Mg Tablet., 81 MG PO NEEDED, TAB 12/19/18 Losartan Potassium* (Losartan Potassium*) 100 Mg Tablet, 100 MG PO DAILY for 30 Days, #30 take 1 tablet by mouth once daily 08/17/18 Carvedilol* (Coreg*) 25 Mg Tablet, 25 MG PO BID, #60 TAB 07/26/18 Medications Current Medications Aspirin (Halfprin) 81 mg DAILY PO Last administered on 12/22/18 08:58; Admin Dose 81 MG; Start 12/20/18 at 09:00 Losartan Potassium (Cozaar) 100 mg DAILY PO Last administered on 12/22/18at 08:58; Admin Dose 100 MG; Start 12/20/18 at 09:00 Sevelamer Carbonate (Renvela) 1,600 mg WITH MEALS PO Last administered on 12/22/18at 08:58; Admin Dose 1,600 MG; Start 12/20/18 at 08:00 IV Flush (NS 3 ml) 3 ml PER PROTOCOL IV ; Start 12/20/18 at 00:30 Heparin Sodium (Porcine) (Heparin (1000 Units/ml)) 3,300 unit AFTER DIALYSIS CATHETER Last administered on 12/20/18at 22:43; Admin Dose 3,300 UNIT; Start 12/20/18 at 02:00 Acetaminophen (Tylenol Tab) 650 mg Q6H PRN PO MILD PAIN(1-3)OR ELEVATED TEMP; Start 12/20/18 at 23:30 Carvedilol (Coreg) 50 mg BID PO Last administered on 12/22/18at 08:58; Admin Dose 50 MG; Start 12/21/18 at 09:00 Assessment/Plan Hospital Course (Demo Recall) 1. End-stage renal disease, on dialysis. Dialysis arranged in advance and currently on dialysis. -assess daily for dialysis needs. All medications are dosed appropriately for renal function, 2. 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 3. Leukocytosis, possibly related to underlying infection. The patient was started on antibiotics for community-acquired possible pneumonia. No other clear source. now improved. 4. Hypertension with urgency, likely related to volume overload. We will monitor with diuresis. Continue regular medications. 5. History of cardiomyopathy, worked up previously. negative lexiscan for reversible ischema. cardiology consultation. ef 20% in past. Poss candidate for defibrillator. 6. History of recently placed Lakia fistula, awaiting maturation. 7. Anemia, mild, now sub therapeutic at this time. Continue Epogen as per schedule. DAVE MEDRANO MD Dec 22, 2018 10:03
--- NOTE | 2018-12-22 10:05 | PDOCDIS ---
Discharge Instructions CONDITION [id number] Patient Condition: [id number] Good HOME CARE INSTRUCTIONS: [id number] Special Diet: [id number] renal FOLLOW UP/APPOINTMENTS Follow-up Plan pmd and on dialysis and with DAVE Love MD Dec 22, 2018 10:05
--- NOTE | 2018-12-22 10:10 | DS ---
Date/Time of Note Date/Time of Note DATE: 12/22/18 TIME: 10:08 Discharge Summary Admission/Discharge Info Admit Date/Time Dec 19, 2018 at 18:10 Discharge Date/Time 12/22 Hospital Course 38-year-old gentleman with a past medical history of end-stage renal disease, on hemodialysis normally on a Monday, , and Monday schedule, currently dialyzing via Perm-A-Cath, although has a newly-placed left forearm AV fistula. The patient has a history of cardiomyopathy, EF 25, history of mineral bone disorder, anemia, and history of hypertension who presents to the [facility] after missing hemodialysis on Monday. His last hemodialysis was Monday without complication. Patient has noticed shortness of breath. He has been limiting his fluid intake, but despite this was unable to lie flat. Chest x-ray showed fluid overload, possibility of underlying infiltrate was there. The patient was already started on antibiotics. White count was noted to be 12.4. No other changes to any of his medications. There have been no recent fevers, chills, nausea, vomiting, or chest pain. He had similar episodes like this a few months back. had successive hd with imrpoved symptoms. education given.seen on hd today. breathing has improved. seen by cards. recommended outpatient aicd. PHYSICAL EXAMINATION: HEENT: Normocephalic, atraumatic. Pupils are equal, round, and reactive to li ght. Pharynx is moist. NECK: Supple. HEART: Regular rate and rhythm. LUNGS: Show crackles (decreased) bilaterally, no retractions. ABDOMEN: Soft, nontender, nondistended. Normoactive bowel sounds. EXTREMITIES: No gross edema. 1. End-stage renal disease, on dialysis. Dialysis arranged in advance and currently on dialysis. -assess daily for dialysis needs. All medications are dosed appropriately for renal function, may need another dialysis tomorrow, which would put him back on schedule. 2. 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 3. Leukocytosis, possibly related to underlying infection. The patient was started on antibiotics for community-acquired possible pneumonia. No other clear source. now improved. 4. Hypertension with urgency, likely related to volume overload. We will monitor with diuresis. Continue regular medications. 5. History of cardiomyopathy, worked up previously. negative lexiscan for reversible ischema. cardiology consultation. ef 20% in past. Poss candidate for defibrillator. 6. History of recently placed Lakia fistula, awaiting maturation. 7. Anemia, mild, therapeutic at this time. Continue Epogen as per schedule. Home Meds Reported Medications Aspirin* (Aspirin* EC) 81 Mg Tablet., 81 MG PO NEEDED, TAB 12/19/18 Losartan Potassium* (Losartan Potassium*) 100 Mg Tablet, 100 MG PO DAILY for 30 Days, #30 take 1 tablet by mouth once daily 08/17/18 Carvedilol* (Coreg*) 25 Mg Tablet, 25 MG PO BID, #60 TAB 07/26/18 Follow-up Plan pmd and on dialysis and with dr. ledbetter Primary Care Provider [facility] Time spent on discharge: > 30 minutes DAVE MEDRANO MD Dec 22, 2018 10:10
[2018-12-22] MEDS: HEPARIN 1000 UNITS/ML 10 ML INJ CATHETER SCH (18:26)
[2018-12-23 03:26] VITALS: BP 149/103; PULSE 76; RESP 23
[2018-12-23 07:32] VITALS: BP 142/105; PULSE 72; RESP 20
--- NOTE | 2018-12-23 07:37 | CONS ---
Consult Date/Type/Reason Admit Date/Time Dec 19, 2018 at 18:10 Initial Consult Date Type of Consultation: cv Requesting Provider: DAVE MEDRANO MD Date/Time of Note DATE: 12/23/18 TIME: 07:36 Subjective 38-year-old gentleman with a past medical history of end-stage renal disease, on hemodialysis normally on a Monday, , and Monday schedule, currently dialyzing via Perm-A-Cath, although has a newly-placed left forearm AV fistula. The patient has a history of cardiomyopathy, EF 25, history of mineral bone disorder, anemia, and history of hypertension who presents to the [facility] after missing hemodialysis on Monday. His last hemodialysis was Monday without complication. Patient has noticed shortness of breath. He has been limiting his fluid intake, but despite this was unable to lie flat. Chest x-ray showed fluid overload, possibility of underlying infiltrate was there. The patient was already started on antibiotics. White count was noted to be 12.4. No other changes to any of his medications. There have been no recent fevers, chills, nausea, vomiting, or chest pain. He had similar episodes like this a few months back. breathing has improved. with aggressive hd Objective Vitals Vital Signs Date Temp Pulse Resp B/P (MAP) Pulse Ox O2 O2 Flow FiO2 Time Delivery Rate 12/23/18 97.8 72 20 142/105 96 07:32 (117) 12/22/18 Room Air 16:42 12/20/18 2.0 01:30 Intake and Output 12/22/18 12/22/18 12/23/18 1515:00 23:00 07:00 IntakeIntake Total 500 ml 520 ml OutputOutput Total 3600 ml BalanceBalance 500 ml -3080 ml Exam PHYSICAL EXAMINATION: HEENT: Normocephalic, atraumatic. Pupils are equal, round, and reactive to light. Pharynx is moist. NECK: Supple. HEART: Regular rate and rhythm. LUNGS: Show crackles (decreased) bilaterally, no retractions. ABDOMEN: Soft, nontender, nondistended. Normoactive bowel sounds. EXTREMITIES: No gross edema. Results/Medications Result Diagram: 12/21/18 6735 12/21/18 0507 Home Meds Reported Medications Aspirin* (Aspirin* EC) 81 Mg Tablet., 81 MG PO NEEDED, TAB 12/19/18 Losartan Potassium* (Losartan Potassium*) 100 Mg Tablet, 100 MG PO DAILY for 30 Days, #30 take 1 tablet by mouth once daily 08/17/18 Carvedilol* (Coreg*) 25 Mg Tablet, 25 MG PO BID, #60 TAB 07/26/18 Medications Current Medications Aspirin (Halfprin) 81 mg DAILY PO Last administered on 12/22/18at 08:58; Admin Dose 81 MG; Start 12/20/18 at 09:00 Losartan Potassium (Cozaar) 100 mg DAILY PO Last administered on 12/22/18at 08:58; Admin Dose 100 MG; Start 12/20/18 at 09:00 Sevelamer Carbonate (Renvela) 1,600 mg WITH MEALS PO Last administered on 12/22/18at 12:25; Admin Dose 1,600 MG; Start 12/20/18 at 08:00 IV Flush (NS 3 ml) 3 ml PER PROTOCOL IV ; Start 12/20/18 at 00:30 Heparin Sodium (Porcine) (Heparin (1000 Units/ml)) 3,300 unit AFTER DIALYSIS CATHETER Last administered on 12/22/18at 18:26; Admin Dose 3,300 UNIT; Start 12/20/18 at 02:00 Acetaminophen (Tylenol Tab) 650 mg Q6H PRN PO MILD PAIN(1-3)OR ELEVATED TEMP; Start 12/20/18 at 23:30 Carvedilol (Coreg) 50 mg BID PO Last administered on 12/22/18at 20:09; Admin Dose 50 MG; Start 12/21/18 at 09:00 Assessment/Plan Hospital Course (Demo Recall) 1. End-stage renal disease, on dialysis. Dialysis arranged in advance and currently on dialysis. -assess daily for dialysis needs. All medications are dosed appropriately for renal function, 2. 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 3. Leukocytosis, possibly related to underlying infection. The patient was started on antibiotics for community-acquired possible pneumonia. No other clear source. now improved. 4. Hypertension with urgency, likely related to volume overload. We will monitor with diuresis. Continue regular medications. 5. History of cardiomyopathy, worked up previously. negative lexiscan for reversible ischema. cardiology consultation. ef 20% in past. Poss candidate for defibrillator. 6. History of recently placed Lakia fistula, awaiting maturation. 7. Anemia, mild, now sub therapeutic at this time. Continue Epogen as per schedule. DAVE MEDRANO MD Dec 23, 2018 07:37
[2018-12-23] MEDS: SEVELAMER CARBONATE 800 MG TABLET PO SCH ×2 (08:48→13:34)
[2018-12-23] MEDS: ASPIRIN (EC) 81 MG TAB PO SCH (08:49)
[2018-12-23] MEDS: LOSARTAN 50 MG TAB PO SCH (08:49)
[2018-12-23 11:23] VITALS: BP 141/101; PULSE 79; RESP 19
== END 2018-12-23 14:18 | disposition home or self-care (01) | DRG 291 ==
LOC: E/R 14:59 → 6WM 18:10
PROVIDERS: ADMIT Internal Medicine; ATTEND Internal Medicine
PROC: 5A1D70Z Performance of Urinary Filtration, Intermittent, Less than 6 Hours Per Day (ICD-10-PCS; principal; 2018-12-20)
DX: I13.2 Hypertensive heart and chronic kidney disease with heart failure and with stage 5 chronic kidney disease, or end stage renal disease (principal); N18.6 End stage renal disease; I50.23 Acute on chronic systolic (congestive) heart failure; J18.9 Pneumonia, unspecified organism; J96.90 Respiratory failure, unspecified, unspecified whether with hypoxia or hypercapnia; I16.0 Hypertensive urgency; D63.1 Anemia in chronic kidney disease; I42.9 Cardiomyopathy, unspecified; Z99.2 Dependence on renal dialysis; Z91.15 Patient's noncompliance with renal dialysis
CPT/HCPCS: 36415; 71045; 80053; 83036; 83605; 83735; 84100; 84436; 84443; 84479; 84484; 85025; 85610; 85730; 87081; 87340; 90935; 93005; 93306; 96374; 96375; J0692; J1644; J3370

== ENCOUNTER 2019-01-07 21:45 | Inpatient (IN) | payer OTHER ==
[~2019-01-07] VITALS: Ht 172.7 cm; Wt 82.8 kg
[2019-01-08] VITALS (16 sets, daily range): BP systolic 122–135; BP diastolic 86–99; PULSE 83–89; RESP 18–20; Ht 172.7 cm; Wt 82.8 kg
[2019-01-08] MEDS ORDERED: ONDANSETRON 4 MG INJ IV PRN (01:00)
[2019-01-08] MEDS ORDERED: ACETAMINOPHEN 325 MG TAB PO PRN (01:00)
--- NOTE | 2019-01-08 02:06 | ERD ---
ER Documentation Chief Complaint Chief Complaint SOB XTODAY; DIALYSIS PT; PLS SEE NOTE HPI This is a very pleasant 38-year-old male with shortness of breath today. Patient is end-stage renal dialysis patient gets dialyzed Tuesdays and Saturdays. He has not missed dialysis. He got increased shortness of breath tonight. He is due for dialysis tomorrow. Denies chest pain fevers chills nausea vomiting. Denies any other current complaints. ROS All systems reviewed and are negative except as per history of present illness. Medications Home Meds Active Scripts Sevelamer Carbonate* (Renvela*) 800 Mg Tablet, 1600 MG PO WITH MEALS, #180 TAB Prov:DAVE MEDRANO MD 12/22/18 Reported Medications Ibuprofen* (Ibuprofen*) 800 Mg Tablet, 800 MG PO TID take 1 tablet by mouth every 8 hours if needed 01/08/19 Multivit/Ca Carb/B Cmplx/Fa* (Rhonda-Willian*) 1 Tab Tab, 1 TAB PO DAILY take 1 tablet by mouth once daily 01/08/19 Aspirin* (Aspirin* EC) 81 Mg Tablet.dr, 81 MG PO NEEDED, TAB 12/19/18 Losartan Potassium* (Losartan Potassium*) 100 Mg Tablet, 100 MG PO DAILY for 30 Days, #30 take 1 tablet by mouth once daily 08/17/18 Carvedilol* (Coreg*) 25 Mg Tablet, 25 MG PO BID, #60 TAB 07/26/18 Allergies Allergies: Coded Allergies: No Known Allergy (Unverified , 01/08/19) PMhx/Soc History of Surgery: Yes (2007 - INGUINAL HERNIA REPAIR, AV FISTULA, 1991- APPENDECTOMY) Anesthesia Reaction: No Hx Neurological Disorder: No Hx Respiratory Disorders: No Hx Cardiac Disorders: Yes (HTN) Hx Psychiatric Problems: No Hx Miscellaneous Medical Probl: Yes (ESRD) Hx Alcohol Use: No Hx Substance Use: No Hx Tobacco Use: No Smoking Status: Never smoker Physical Exam Vitals Vital Signs Date Temp Pulse Resp B/P (MAP) Pulse Ox O2 O2 Flow FiO2 Time Delivery Rate 01/08/19 117 20 188/150 100 Nasal 3.0 00:00 (163) Cannula 01/07/19 118 99 30 22:45 01/07/19 Nasal 3.0 22:40 Cannula 01/07/19 3 22:40 01/07/19 98.1 117 22 183/122 95 Nasal 3.0 22:40 (142) Cannula 01/07/19 98.1 121 22 183/122 95 21:48 (142) Physical Exam Const: No acute distress Head: Atraumatic Eyes: Normal Conjunctiva ENT: Normal External Ears, Nose and Mouth. Neck: Full range of motion. No meningismus. Resp: Clear to auscultation bilaterally Cardio: Regular rate and rhythm, no murmurs Abd: Soft, non tender, non distended. Normal bowel sounds Skin: No petechiae or rashes Back: No midline or flank tenderness Ext: No cyanosis, or edema Neur: Awake and alert Psych: Normal Mood and Affect Result Diagram: 01/07/19222301/07/192223 Results 24 hrs Laboratory Tests Test 01/07/19 22:24 01/07/19 22:43 01/08/19 00:33 White Blood Count 5.8 10^3/ul Red Blood Count 2.82 10^6/ul Hemoglobin 8.9 g/dl Hematocrit 27.3 % Mean Corpuscular Volume 96.8 fl Mean Corpuscular Hemoglobin 31.6 pg Mean Corpuscular Hemoglobin Concent 32.6 g/dl Red Cell Distribution Width 17.7 % Platelet Count 115 10^3/UL Mean Platelet Volume 10.2 fl Immature Granulocytes % 0.300 % Neutrophils % 71.2 % Lymphocytes % 19.4 % Monocytes % 6.7 % Eosinophils % 2.1 % Basophils % 0.3 % Nucleated Red Blood Cells % 0.0 /100WBC Immature Granulocytes # 0.020 10^3/ul Neutrophils # 4.1 10^3/ul Lymphocytes # 1.1 10^3/ul Monocytes # 0.4 10^3/ul Eosinophils # 0.1 10^3/ul Basophils # 0.0 10^3/ul Nucleated Red Blood Cells # 0.0 10^3/ul Prothrombin Time 14.0 Sec Prothrombin Time Ratio 1.1 INR International Normalized Ratio 1.07 Activated Partial Thromboplast Time 27.2 Sec Sodium Level 138 mmol/L Potassium Level 3.8 mmol/L Chloride Level 98 mmol/L Carbon Dioxide Level 25 mmol/L Anion Gap 15 Blood Urea Nitrogen 54 mg/dl Creatinine 12.40 mg/dl Est Glomerular Filtrat Rate mL/min 5 mL/min Glucose Level 89 mg/dl Calcium Level 9.6 mg/dl Total Bilirubin 0.6 mg/dl Direct Bilirubin 0.00 mg/dl Indirect Bilirubin 0.6 mg/dl Aspartate Amino Transf (AST/SGOT) 29 IU/L Alanine Aminotransferase (ALT/SGPT) 38 IU/L Alkaline Phosphatase 92 IU/L Troponin I 0.094 ng/ml B-Type Natriuretic Peptide > [id number] PG/ML Total Protein 6.9 g/dl Albumin 3.9 g/dl Globulin 3.00 g/dl Albumin/Globulin Ratio 1.30 POC Venous Lactate 0.8 mmol/L Lactic Acid Level 0.6 mmol/L Current Medications Medications Dose Sig/Anirudh Start Time Status Last (Trade) Ordered Route PRN Stop Time Admin Dose Reason Admin Ondansetron 4 mg ER BRIDGE 01/08/19 HCl (Zofran PRN IV 01:00 01/09/19 Inj) NAUSEA/VOMITI 00:59 NG 650 mg ER BRIDGE 01/08/19 Acetaminophen PRN PO 01:00 01/09/19 (Tylenol .MILD PAIN 00:59 Tab) 1-3 OR TEMP Procedures/MDM EKG: Rate/Rhythm: [Normal Sinus Rhythm] QRS, ST, T-waves: [No changes consistent w/ acute ischemia] Impression: [No evidence of ischemia or arrhythmia] Chest X-ray 1V Interpreted by me: Soft Tissue: No acute abnormalities Bones: No acute abnormalities Mediastinum/Cardiac Silhouette/Lungs: Increased interstitial fluid markings. Impression: CHF Medical decision making: Patient's heart failure symptoms is concerning for acute decompensation and will require inpatient workup and monitoring. Further w/u for ischemia, arrhythmia, PE or dissection will be deferred to the inpatient team. Accepting Care Team: Current data and ongoing care discussed. Time: 1 AM Primary Provider: Dr. 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
--- NOTE | 2019-01-08 09:07 | HP ---
DATE OF ADMISSION: 01/07/2019 CHIEF COMPLAINT: Shortness of breath. HISTORY OF PRESENT ILLNESS: This is a 38-year-old male with past medical history of end-stage renal disease on dialysis Monday, , Monday, history of cardiomyopathy, history of hypertension w luis a presents to [facility] emergency room with shortness of breath. The patient sta jaime he had hemodialysis on Monday; however, he had increased shortness of breath over the last 2 da ys. As a result, he came to the emergency room. Upon arrival, the patient had a chest x-ray which s howed findings of cardiomegaly. The patient in the emergency room was given IV Zofran. No other brodie nts noted. PAST MEDICAL HISTORY: History of end-stage renal disease, cardiomyopathy, hypertension, anemia. PAST SURGICAL HISTORY: Status post hernia repair, status post Perm-A-Cath placement. FAMILY HISTORY: No family history of kidney disease. SOCIAL HISTORY: Does not drink, smoke or do drugs. MEDICATIONS: The patient's medications have been reviewed. REVIEW OF SYSTEMS: A 14-point review of systems conducted. Pertinent positives stated in HPI, other quarles negative. PHYSICAL EXAMINATION: VITAL SIGNS: Blood pressure is 176/62, respirations 17, temperature 98.6. HEENT: Head is normocephalic. NECK: Supple. HEART: Regular rate. LUNGS: Show diminished breath sounds at the base. ABDOMEN: Soft, nontender to palpation without rebound or guarding. EXTREMITIES: Negative for clubbing, cyanosis, no edema. DERMATOLOGIC: No rashes. MUSCULOSKELETAL: No joint effusion. NEUROLOGIC: No focal deficits. LABORATORY DATA: Has been reviewed. IMAGING STUDIES: Have been reviewed. ASSESSMENT AND PLAN: 1. Acute hypoxemic respiratory failure. Etiology is secondary to volume overload, pulmonary edema. Plan for urgent hemodialysis today and tomorrow. 2. End-stage renal disease. The patient is on dialysis Monday, , Monday with access Perm -A-Cath with last hemodialysis Monday. Plan for dialysis today and will dialyze tomorrow for solut e clearance and volume removal. 3. Hypertensive urgency in part due to increased intravascular volume. Continue current blood press ure regimen. Continue ultrafiltration with dialysis. 4. Cardiomyopathy. Continue medical management. 5. Anemia. Monitor hemoglobin and hematocrit levels. 6. Mineral bone disorder. Monitor calcium and phosphorus levels. Continue phos binders. 7. Gastrointestinal and deep vein thrombosis prophylaxis. Dictated By: DMITRY VU/ZAKIA Conf#: [id number] DID#: [id number]
[2019-01-08] MEDS: SEVELAMER CARBONATE 0.8 GM PKT PO SCH ×2 (12:00→12:51)
[2019-01-08] MEDS: ASPIRIN (EC) 81 MG TAB PO SCH (12:30)
[2019-01-08] MEDS: LOSARTAN 50 MG TAB PO SCH (12:52)
[2019-01-08] MEDS: MULTIVIT/CA CARB/B CMPLX/FA TAB PO SCH (12:52)
[2019-01-08] MEDS ORDERED: HEPARIN 1000 UNITS/ML 10 ML INJ CATHETER ONE (18:00)
[2019-01-09] VITALS (18 sets, daily range): BP systolic 136–167; BP diastolic 80–112; PULSE 78–90; RESP 18
[2019-01-09] MEDS: SEVELAMER CARBONATE 0.8 GM PKT PO SCH (08:19)
[2019-01-09] MEDS: MULTIVIT/CA CARB/B CMPLX/FA TAB PO SCH (08:23)
[2019-01-09] MEDS: ASPIRIN (EC) 81 MG TAB PO SCH (08:23)
[2019-01-09] MEDS: LOSARTAN 50 MG TAB PO SCH (08:28)
[2019-01-09] MEDS: SEVELAMER CARBONATE 800 MG TABLET PO SCH ×4 (09:03→17:49)
[2019-01-09] MEDS ORDERED: EPOETIN ALFA-EPBX (ESRD) 10,000 UNIT/ML VIAL SC ONE (10:00)
[2019-01-09] MEDS: EPOETIN ALFA-EPBX (ESRD) 10,000 UNIT/ML VIAL SC ONE ×2 (17:42→17:49)
[2019-01-09] MEDS ORDERED: HEPARIN 1000 UNITS/ML 10 ML INJ CATHETER SCH (18:00)
--- NOTE | 2019-01-09 22:15 | DS ---
DATE OF ADMISSION: 01/08/2019 DATE OF DISCHARGE: 01/09/2019 HOSPITAL COURSE: This is a 38-year-old male with a past medical history of end-stage renal disease o n dialysis Monday, , Monday, history of cardiomyopathy, hypertension, who presents to [facility] with shortness of breath. The patient states that the patient over the past several days with decreasing free water and oral intake. The patient became short of breath and was subsequently brought to [facility] and was admitted with respiratory distress. Wh ile at [facility], the patient had hemodialysis, tolerated well with resolution of symptoms. The patient is currently stable. Plan will be for the patient had dialysis again today an d will be subsequently discharged home where he will return to his dialysis clinic and follow up with his primary care physician, Dr. Lucia. FINAL DIAGNOSES: 1. Acute hypoxic respiratory arrest secondary to pulmonary edema, resolved. 2. End-stage renal disease. 3. Hypertensive urgency. 4. Cardiomyopathy. 5. Anemia. 6. Mineral bone disorder. FINAL MEDICATIONS: Please see reconciliation list. DISPOSITION: At the time of discharge, the patient is stable, in no acute distress. Dictated By: DMITRY KELLER DO NR/ZAKIA Conf#: [id number] DID#: [id number] CC: SASKIA LUCIA DO;*EndCC*
== END 2019-01-09 20:10 | disposition home or self-care (01) | DRG 205 ==
LOC: E/R 21:45 → TEL 01-08 00:44
PROVIDERS: ADMIT Internal Medicine Nephrology; ATTEND Internal Medicine Nephrology
PROC: 5A09357 Assistance with Respiratory Ventilation, Less than 24 Consecutive Hours, Continuous Positive Airway Pressure (ICD-10-PCS; 2019-01-07)
PROC: 5A1D70Z Performance of Urinary Filtration, Intermittent, Less than 6 Hours Per Day (ICD-10-PCS; 2019-01-08)
PROC: 5A1D70Z Performance of Urinary Filtration, Intermittent, Less than 6 Hours Per Day (ICD-10-PCS; principal; 2019-01-09)
DX: R09.2 Respiratory arrest (principal); N18.6 End stage renal disease; J81.1 Chronic pulmonary edema; I12.0 Hypertensive chronic kidney disease with stage 5 chronic kidney disease or end stage renal disease; I42.9 Cardiomyopathy, unspecified; D64.9 Anemia, unspecified; E83.9 Disorder of mineral metabolism, unspecified
CPT/HCPCS: 36415; 71045; 80048; 80053; 83605; 83735; 83880; 84100; 84484; 85025; 85610; 85730; 90935; 93005; 94660; J1644; Q5105

== ENCOUNTER 2019-01-17 19:55 | Inpatient (IN) | payer OTHER ==
[~2019-01-17] VITALS: Ht 167.6 cm; Wt 75.0 kg
[~2019-01-17 19:55] MED LIST changes: -IBUP-1544 PO
[2019-01-17] MEDS ORDERED: ASPIRIN 81 MG TAB PO STA (21:10)
[2019-01-17] MEDS ORDERED: NITROGLYCERIN 2% 1 GM OINT PKT TD STA (21:10)
[2019-01-17] MEDS ORDERED: ACETAMINOPHEN 325 MG TAB PO PRN (21:30)
[2019-01-17] MEDS ORDERED: ONDANSETRON 4 MG INJ IV PRN (21:30)
[2019-01-17] MEDS ORDERED: NITROGLYCERIN (SL) 0.4 MG TAB SL PRN (21:30)
[2019-01-18] VITALS (21 sets, daily range): BP systolic 107–187; BP diastolic 53–132; PULSE 76–113; RESP 18–22; Ht 167.6 cm; Wt 75.0 kg
[2019-01-18] MEDS ORDERED: ONDANSETRON 4 MG INJ IV PRN (01:30)
[2019-01-18] MEDS ORDERED: NACL 0.9% 3 ML SYG IV SCH (01:30)
[2019-01-18] MEDS ORDERED: ACETAMINOPHEN 325 MG TAB PO PRN (01:30)
[2019-01-18] MEDS: NITROGLYCERIN 2% 1 GM OINT PKT TD SCH ×2 (01:47→05:10)
[2019-01-18] MEDS: SEVELAMER CARBONATE 0.8 GM PKT PO SCH ×2 (07:55→08:08)
[2019-01-18] MEDS: MULTIVIT/CA CARB/B CMPLX/FA TAB PO SCH (08:08)
[2019-01-18] MEDS: ASPIRIN (EC) 81 MG TAB PO SCH (08:08)
[2019-01-18] MEDS: LOSARTAN 50 MG TAB PO SCH (08:09)
[2019-01-18] MEDS: SEVELAMER CARBONATE 800 MG TABLET PO SCH ×2 (12:00→17:27)
[2019-01-18] MEDS ORDERED: HEPARIN 5,000 UNIT/1 ML VIAL CATHETER ONE (19:30)
[2019-01-19] VITALS (19 sets, daily range): BP systolic 130–171; BP diastolic 80–117; PULSE 72–92; RESP 16–20
[2019-01-19] MEDS ORDERED: EPOETIN ALFA-EPBX (ESRD) 10,000 UNIT/ML VIAL SC ONE (07:30)
[2019-01-19] MEDS: SEVELAMER CARBONATE 800 MG TABLET PO SCH ×3 (08:05→17:01)
[2019-01-19] MEDS: MULTIVIT/CA CARB/B CMPLX/FA TAB PO SCH (08:06)
[2019-01-19] MEDS: ASPIRIN (EC) 81 MG TAB PO SCH (08:06)
[2019-01-19] MEDS: LOSARTAN 50 MG TAB PO SCH (08:06)
[2019-01-19] MEDS ORDERED: HEPARIN 1000 UNITS/ML 10 ML INJ CATHETER ONE (19:00)
[2019-01-19] MEDS ORDERED: HEPARIN 1000 UNITS/ML 10 ML INJ CATHETER SCH (21:00)
[2019-01-20] VITALS (21 sets, daily range): BP systolic 132–172; BP diastolic 85–108; PULSE 71–95; RESP 16–18
[2019-01-20] MEDS: SEVELAMER CARBONATE 800 MG TABLET PO SCH ×3 (07:59→17:51)
[2019-01-20] MEDS: MULTIVIT/CA CARB/B CMPLX/FA TAB PO SCH (08:33)
[2019-01-20] MEDS: ASPIRIN (EC) 81 MG TAB PO SCH (08:33)
[2019-01-20] MEDS: LOSARTAN 50 MG TAB PO SCH (08:34)
[2019-01-21 06:56] VITALS: BP 161/103; PULSE 89; RESP 18
[2019-01-21] MEDS: SEVELAMER CARBONATE 800 MG TABLET PO SCH (08:00)
[2019-01-21] MEDS: LOSARTAN 50 MG TAB PO SCH (08:01)
[2019-01-21] MEDS: ASPIRIN (EC) 81 MG TAB PO SCH (08:01)
[2019-01-21] MEDS: MULTIVIT/CA CARB/B CMPLX/FA TAB PO SCH (08:01)
[2019-01-21 08:03] VITALS: BP 165/120; PULSE 97; RESP 20
== END 2019-01-21 10:53 | disposition home or self-care (01) | DRG 640 ==
LOC: E/R 19:55 → TEL 21:26 → EDBEDREQ 22:04
PROVIDERS: ADMIT Internal Medicine; ATTEND Internal Medicine
PROC: 5A1D70Z Performance of Urinary Filtration, Intermittent, Less than 6 Hours Per Day (ICD-10-PCS; principal; 2019-01-18)
DX: E87.70 Fluid overload, unspecified (principal); N18.6 End stage renal disease; J96.01 Acute respiratory failure with hypoxia; I12.0 Hypertensive chronic kidney disease with stage 5 chronic kidney disease or end stage renal disease; I42.9 Cardiomyopathy, unspecified; Z99.2 Dependence on renal dialysis; I16.0 Hypertensive urgency; D64.9 Anemia, unspecified
CPT/HCPCS: 36415; 71045; 71046; 80048; 80053; 82550; 82553; 83036; 83735; 84100; 84484; 85025; 87081; 87340; 90935; 93005; J1644; Q5105

== ENCOUNTER 2019-01-28 19:07 | Inpatient (IN) | payer OTHER ==
[~2019-01-28] VITALS: Ht 177.8 cm; Wt 83.4 kg
[2019-01-28] VITALS (10 sets, daily range): BP systolic 153–173; BP diastolic 105–128; PULSE 54–105; RESP 19–20; Ht 177.8 cm; Wt 83.4 kg
[2019-01-28] MEDS ORDERED: morphine 2 MG INJ IV STA (19:36)
[2019-01-28] MEDS ORDERED: ONDANSETRON 4 MG INJ IV STA (19:36)
[2019-01-28] MEDS ORDERED: ACETAMINOPHEN 325 MG TAB PO PRN (20:00)
[2019-01-28] MEDS ORDERED: ONDANSETRON 4 MG INJ IV PRN (20:00)
[2019-01-28] MEDS ORDERED: NITROGLYCERIN 2% 1 GM OINT PKT TD ONE (20:00)
[2019-01-29] VITALS (23 sets, daily range): BP systolic 130–169; BP diastolic 80–122; PULSE 76–94; RESP 16–20
[2019-01-29] MEDS: HEPARIN 1000 UNITS/ML 10 ML INJ CATHETER SCH ×2 (01:41→20:14)
[2019-01-29] MEDS: SEVELAMER CARBONATE 0.8 GM PKT PO SCH ×2 (07:55→08:47)
[2019-01-29] MEDS: ASPIRIN (EC) 81 MG TAB PO SCH (08:48)
[2019-01-29] MEDS: LOSARTAN 50 MG TAB PO SCH (08:48)
[2019-01-29] MEDS: MULTIVIT/CA CARB/B CMPLX/FA TAB PO SCH (08:48)
[2019-01-29] MEDS: HEPARIN 5,000 UNIT/1 ML VIAL SC SCH ×2 (08:58→21:00)
[2019-01-29] MEDS: SEVELAMER CARBONATE 800 MG TABLET PO SCH ×3 (09:28→17:21)
[2019-01-30 04:49] VITALS: BP 133/84; PULSE 73; RESP 18
[2019-01-30 07:18] VITALS: BP 146/101; PULSE 78; RESP 17
[2019-01-30] MEDS: HEPARIN 5,000 UNIT/1 ML VIAL SC SCH (09:00)
[2019-01-30] MEDS: MULTIVIT/CA CARB/B CMPLX/FA TAB PO SCH (09:58)
[2019-01-30] MEDS: SEVELAMER CARBONATE 800 MG TABLET PO SCH (09:58)
[2019-01-30] MEDS: ASPIRIN (EC) 81 MG TAB PO SCH (09:58)
[2019-01-30] MEDS: LOSARTAN 50 MG TAB PO SCH (09:59)
== END 2019-01-30 11:15 | disposition home or self-care (01) | DRG 189 ==
LOC: E/R 19:07 → TEL 19:43
PROVIDERS: ADMIT Internal Medicine; ATTEND Internal Medicine
DX: J96.01 Acute respiratory failure with hypoxia (principal); N18.6 End stage renal disease; J81.1 Chronic pulmonary edema; I42.9 Cardiomyopathy, unspecified; I12.0 Hypertensive chronic kidney disease with stage 5 chronic kidney disease or end stage renal disease; E87.70 Fluid overload, unspecified; I16.0 Hypertensive urgency; D64.9 Anemia, unspecified; Z99.2 Dependence on renal dialysis; Z79.82 Long term (current) use of aspirin
CPT/HCPCS: 36415; 71045; 80048; 83735; 84100; 84484; 85025; 85610; 85730; 90935; 93005; J1644; J2270; J2405

== ENCOUNTER 2019-02-06 16:41 | Inpatient (IN) | payer OTHER ==
[~2019-02-06] VITALS: Ht 170.2 cm; Wt 80.5 kg
[2019-02-06 16:45] VITALS: Ht 170.2 cm; Wt 80.5 kg
[2019-02-06] MEDS ORDERED: NITROGLYCERIN 2% 1 GM OINT PKT TD ONE (17:00)
[2019-02-06] MEDS ORDERED: ONDANSETRON 4 MG INJ IV PRN (18:00)
[2019-02-06] MEDS ORDERED: ACETAMINOPHEN 325 MG TAB PO PRN (18:00)
[2019-02-07] VITALS (34 sets, daily range): BP systolic 131–184; BP diastolic 90–131; PULSE 77–96; RESP 18–22
[2019-02-07] MEDS: HEPARIN 1000 UNITS/ML 10 ML INJ CATHETER SCH ×2 (04:20→20:26)
[2019-02-07] MEDS: SEVELAMER CARBONATE 0.8 GM PKT PO SCH ×2 (08:00→08:11)
[2019-02-07] MEDS: ASPIRIN (EC) 81 MG TAB PO SCH (08:12)
[2019-02-07] MEDS: LOSARTAN 50 MG TAB PO SCH (08:12)
[2019-02-07] MEDS: SEVELAMER CARBONATE 800 MG TABLET PO SCH ×2 (11:49→17:08)
[2019-02-08 03:34] VITALS: PULSE 84
[2019-02-08 07:05] VITALS: BP 162/103; PULSE 82; RESP 19
[2019-02-08] MEDS: SEVELAMER CARBONATE 800 MG TABLET PO SCH (08:41)
[2019-02-08] MEDS: LOSARTAN 50 MG TAB PO SCH (08:42)
[2019-02-08] MEDS: ASPIRIN (EC) 81 MG TAB PO SCH (08:42)
== END 2019-02-08 09:40 | disposition home or self-care (01) | DRG 189 ==
LOC: E/R 16:41 → 6WM 17:53 → OBSVTOIN 02-07 08:58
PROVIDERS: ADMIT Internal Medicine; ATTEND Internal Medicine
DX: J96.01 Acute respiratory failure with hypoxia (principal); N18.6 End stage renal disease; I13.11 Hypertensive heart and chronic kidney disease without heart failure, with stage 5 chronic kidney disease, or end stage renal disease; I42.9 Cardiomyopathy, unspecified; D61.818 Other pancytopenia; I16.0 Hypertensive urgency; Z99.2 Dependence on renal dialysis; M89.8X9 Other specified disorders of bone, unspecified site; Z79.82 Long term (current) use of aspirin
CPT/HCPCS: 36415; 71045; 80048; 83735; 84100; 84484; 85025; 85610; 85730; 87081; 87340; 90935; 93005; 99217; G0378; J1644

== ENCOUNTER 2019-03-30 21:10 | Inpatient (IN) | payer OTHER ==
[~2019-03-30] VITALS: Ht 177.8 cm; Wt 71.4 kg
[~2019-03-30 21:10] MED LIST changes: +HYDR-4011 PO; -NEPH PO; +[UNRECOGNIZED DRUG - CODE] TP
[2019-03-30 21:13] VITALS: Ht 177.8 cm; Wt 71.4 kg
[2019-03-30] MEDS ORDERED: morphine 4 MG/ML VIAL IV STA (22:50)
[2019-03-30] MEDS ORDERED: SOD CHLORIDE 0.9% 250 ML IV STA (22:50)
[2019-03-30] MEDS ORDERED: ONDANSETRON 4 MG INJ IV STA (22:50)
[2019-03-31] MEDS ORDERED: CEFEPIME 2GM/50 ML (PMX) 50 ML IVPB STA (00:02)
[2019-03-31] MEDS ORDERED: ACETAMINOPHEN 325 MG TAB PO PRN (00:30)
[2019-03-31] MEDS ORDERED: ONDANSETRON 4 MG INJ IV PRN (00:30)
[2019-03-31] MEDS ORDERED: VANCOMYCIN 1 GM (PMX) 250 ML IVPB ONE (00:30)
[2019-03-31] MEDS ORDERED: SOD CHLORIDE 0.9% 500 ML IV STA (00:48)
[2019-03-31] MEDS ORDERED: HYDROmorphONE 1 MG/ML SYG IV STA (01:44)
[2019-03-31] MEDS ORDERED: TOBRAMYCIN IV PER PHARMACY XX SCH (10:00)
[2019-03-31] MEDS ORDERED: LIDOCAINE 1% (MDV) 20 ML INJ ONE (10:10)
[2019-03-31] MEDS ORDERED: FENTAnyl 50 MCG/ML VIAL ONE (10:14)
[2019-03-31] MEDS ORDERED: MIDAZOLAM 1 MG/ML 2 ML INJ ONE (10:14)
[2019-03-31] MEDS ORDERED: TOBRAMYCIN 150 MG in DEXTROSE 5% 100 ML IVPB SCH (11:00)
[2019-03-31] MEDS ORDERED: EPOETIN ALFA-EPBX (ESRD) 10,000 UNIT/ML VIAL SC ONE (11:30)
[2019-03-31] MEDS ORDERED: SEVELAMER CARBONATE 0.8 GM PKT PO SCH (12:00)
[2019-03-31] MEDS ORDERED: PIPER-TAZO 3.375 GM IV (PMX) 100 ML IVPB SCH (13:30)
[2019-03-31 14:06] VITALS: BP 140/96; PULSE 86; RESP 18
[2019-03-31] MEDS ORDERED: PIPER-TAZO 2.25 GM/NS 50 ML IVPB SCH (21:00)
[2019-04-01] MEDS ORDERED: ASPIRIN (EC) 81 MG TAB PO SCH (09:00)
[2019-04-01] MEDS ORDERED: LOSARTAN 50 MG TAB PO SCH (09:00)
[2019-04-01] MEDS ORDERED: TOBRAMYCIN 80 MG in SOD CHLORIDE 0.9% 50 ML IVPB SCH (10:00)
== END 2019-03-31 16:15 | disposition left against medical advice (07) | DRG 391 ==
LOC: E/R 21:10 → MS1 03-31 00:24
PROVIDERS: ADMIT Internal Medicine Nephrology; ATTEND Internal Medicine Nephrology
DX: K57.80 Diverticulitis of intestine, part unspecified, with perforation and abscess without bleeding (principal); K65.1 Peritoneal abscess; N18.6 End stage renal disease; I42.9 Cardiomyopathy, unspecified; I13.2 Hypertensive heart and chronic kidney disease with heart failure and with stage 5 chronic kidney disease, or end stage renal disease; I50.20 Unspecified systolic (congestive) heart failure; D63.1 Anemia in chronic kidney disease; F17.200 Nicotine dependence, unspecified, uncomplicated; Z53.29 Procedure and treatment not carried out because of patient's decision for other reasons; Z99.2 Dependence on renal dialysis; Z79.82 Long term (current) use of aspirin
CPT/HCPCS: 36415; 74176; 80053; 83605; 83690; 85025; 93005; 96361; 96374; 96375; J0692; J1170; J2250; J2270; J2405; J2543; J3010; J3260; J3370; J7040; Q5105

== ENCOUNTER 2019-04-02 20:36 | Inpatient (IN) | payer OTHER ==
[~2019-04-02] VITALS: Ht 177.8 cm; Wt 73.0 kg
[~2019-04-02 20:36] MED LIST changes: -SEVE800T7 PO; -[UNRECOGNIZED DRUG - CODE] TP
[2019-04-02 21:03] VITALS: Ht 177.8 cm; Wt 73.0 kg
[2019-04-02] MEDS ORDERED: PIPER-TAZO 3.375 GM IV (PMX) 100 ML IVPB STA (22:18)
[2019-04-02] MEDS ORDERED: ONDANSETRON 4 MG INJ IV STA (22:18)
[2019-04-03 02:05] VITALS: BP 123/82; PULSE 89; RESP 16
[2019-04-03] MEDS ORDERED: ONDANSETRON 4 MG INJ IV PRN (03:00)
[2019-04-03 03:35] VITALS: BP 136/85; PULSE 91; RESP 18
[2019-04-03] MEDS: PIPER-TAZO 2.25 GM (PMX) 50 ML IVPB SCH ×3 (05:52→21:16)
[2019-04-03 07:47] VITALS: BP 139/98; PULSE 98; RESP 18
[2019-04-03] MEDS: LOSARTAN 50 MG TAB PO SCH (09:10)
[2019-04-03] MEDS: HEPARIN 5,000 UNIT/1 ML VIAL SC SCH ×2 (09:13→21:00)
[2019-04-03 11:46] VITALS: BP 120/70; PULSE 92; RESP 20
[2019-04-03] MEDS: HYDROCODONE/APAP (5/325) TAB PO PRN (12:21)
[2019-04-03] MEDS ORDERED: IOHEXOL 14.3 MG(I)/ML (ADULT) BTL PO ONE (13:00)
[2019-04-03 15:13] VITALS: BP 127/76; PULSE 89; RESP 20
[2019-04-03] MEDS ORDERED: IOHEXOL 300MG/ML 150 ML BTL ONE (16:03)
[2019-04-03] MEDS ORDERED: SOD CHLORIDE 0.9% 100 ML ONE (16:03)
[2019-04-03 19:19] VITALS: BP 142/94; PULSE 81; RESP 19
[2019-04-04] MEDS: PIPER-TAZO 2.25 GM (PMX) 50 ML IVPB SCH ×3 (06:18→21:17)
[2019-04-04] MEDS: LOSARTAN 50 MG TAB PO SCH (09:00)
[2019-04-04] MEDS: HEPARIN 5,000 UNIT/1 ML VIAL SC SCH ×2 (09:00→21:27)
[2019-04-04 09:07] VITALS: BP 151/103; PULSE 87; RESP 18
[2019-04-04] MEDS: SOD CHLORIDE 0.45% 1,000 ML IV SCH (09:09)
[2019-04-04] MEDS ORDERED: LIDOCAINE 1% (MDV) 20 ML INJ ONE (10:19)
[2019-04-04] MEDS ORDERED: MIDAZOLAM 1 MG/ML 2 ML INJ ONE (10:22)
[2019-04-04] MEDS ORDERED: FENTAnyl 50 MCG/ML VIAL ONE (10:22)
[2019-04-04] MEDS: HYDROCODONE/APAP (5/325) TAB PO PRN (14:16)
[2019-04-04 15:50] VITALS: BP 151/110; PULSE 105; RESP 18
[2019-04-04 16:52] VITALS: BP 151/110; PULSE 99; RESP 18
[2019-04-04] MEDS ORDERED: EPOETIN ALFA-EPBX (ESRD) 10,000 UNIT/ML VIAL SC SCH (17:00)
[2019-04-04] MEDS: morphine 2 MG INJ IV PRN (17:21)
[2019-04-04 21:14] VITALS: BP 150/110; PULSE 97; RESP 18
[2019-04-05] VITALS (17 sets, daily range): BP systolic 144–159; BP diastolic 96–112; PULSE 84–102; RESP 15–20
[2019-04-05] MEDS: HYDROCODONE/APAP (5/325) TAB PO PRN (00:58)
[2019-04-05] MEDS: SOD CHLORIDE 0.45% 1,000 ML IV SCH (03:30)
[2019-04-05] MEDS: PIPER-TAZO 2.25 GM (PMX) 50 ML IVPB SCH ×2 (06:58→15:20)
[2019-04-05] MEDS: LOSARTAN 50 MG TAB PO SCH (09:37)
[2019-04-05] MEDS: HEPARIN 5,000 UNIT/1 ML VIAL SC SCH (10:04)
[2019-04-05] MEDS: morphine 2 MG INJ IV PRN (15:31)
== END 2019-04-05 18:53 | disposition left against medical advice (07) | DRG 391 ==
LOC: E/R 20:36 → 6WM 23:40
PROVIDERS: ADMIT Internal Medicine; ATTEND Internal Medicine
PROC: 5A1D70Z Performance of Urinary Filtration, Intermittent, Less than 6 Hours Per Day (ICD-10-PCS; principal; 2019-04-05)
DX: K57.80 Diverticulitis of intestine, part unspecified, with perforation and abscess without bleeding (principal); N18.6 End stage renal disease; I12.0 Hypertensive chronic kidney disease with stage 5 chronic kidney disease or end stage renal disease; I42.9 Cardiomyopathy, unspecified; Z99.2 Dependence on renal dialysis; F10.10 Alcohol abuse, uncomplicated; Y90.9 Presence of alcohol in blood, level not specified
CPT/HCPCS: 36415; 74177; 77012; 80053; 83690; 85025; 85610; 85730; 86850; 86900; 86901; 87070; 90935; 93005; 96374; C1729; J1644; J2250; J2270; J2405; J2543; J3010; Q5105; Q9967